=== PATIENT | male | born 1985 | race Caucasian/White ===

== ENCOUNTER → 2017-11-15 09:31 | Outpatient (CLI) | payer OTHER, SELFPAY ==
[2017-11-15 12:20] LABS: Anion Gap 5 (5-15); BUN 23 mg/dL (7-18); BUN/Creat Ratio 15.3 RATIO (10-20); Calcium,Total 9.3 mg/dL (8.5-10.1); Chloride 107 mmol/L (98-107); Cholesterol 212 mg/dL (200); EST Glomerular Filtration Rate 57 mL/min (>60); Est Glom Filt Rate - Afr Amer 69 mL/min (>60); Glucose 93 mg/dL (74-106); High Density Lipoprotein 44 mg/dL; Potassium 4.8 mmol/L (3.5-5.1); Sodium Level 142 mmol/L (136-145); Triglycerides 100 mg/dL; Very Low Density Lipoprotein 20 mg/dL (5-40)
[2017-11-15 12:26] LABS: Vitamin D,25 Hydroxy 47.2 ng/mL (29.95-100.01)
== END ==
PROVIDERS: Family Provider Family Medicine; PCP Family Medicine; Visit Provider Family Medicine
DX: Z00.00 Encounter for general adult medical examination without abnormal findings (principal)
CPT/HCPCS: 36415; 80048; 80061; 82306

== ENCOUNTER → 2018-07-18 15:54 | Outpatient (CLI) | payer OTHER, SELFPAY ==
[2018-07-18 18:06] LABS: Anion Gap 9 (5-15); BUN 19 mg/dL (7-18); BUN/Creat Ratio 11.8 RATIO (10-20); Calcium,Total 9.7 mg/dL (8.5-10.1); Chloride 105 mmol/L (98-107); Cholesterol 306 mg/dL (200); Creatinine, Serum 1.61 mg/dL (0.70-1.30); EST Glomerular Filtration Rate 52 mL/min (>60); Est Glom Filt Rate - Afr Amer 63 mL/min (>60); Glucose 78 mg/dL (74-106); High Density Lipoprotein 49 mg/dL; Potassium 3.8 mmol/L (3.5-5.1); Sodium Level 142 mmol/L (136-145); Triglycerides 287 mg/dL; Very Low Density Lipoprotein 57 mg/dL (5-40)
== END ==
PROVIDERS: Family Provider Family Medicine; PCP Family Medicine; Referring Provider Family Medicine; Visit Provider Family Medicine
DX: I10 Essential (primary) hypertension (principal)
CPT/HCPCS: 36415; 80048; 80061

== ENCOUNTER 2020-06-03 19:57 | Inpatient (IN) | payer OTHER, SELFPAY ==
[2020-06-03] VITALS (11 sets, daily range): BP systolic 175–204; BP diastolic 101–142; PULSE 83–99; RESP 15–25; TEMP 37.2–37.3; O2SAT 90–99; BMI 31.8
--- NOTE | 2020-06-03 20:05 | PCM.HP.STD ---
Problem List (1) KAYLA (acute kidney injury) Status: Acute (2) CKD (chronic kidney disease) stage 3, GFR 30-59 ml/min Status: Chronic (3) Intractable abdominal pain Status: Acute History of Present Illness Date of Admission: 06/03/20 Chief Complaint: abdominal pain The patient is a 34 year old M with a significant history of hypertension who presented to outside hospital ED with excruciating progressively worsening epigastric pain that started after a bowel movement. His symptoms started on the same day of presentation. His epigastric pain radiates to his lower abdomen and to his back. The pain aggravates with movement. The pain improved with morphine and Dilaudid given at outside hospital ED. He described the pain as sharp. He denies nausea and vomiting except with placement of NG tube. He denies fever but reports some mild chills. At outside hospital ED patient was found to have severely elevated blood pressures. Reportedly his blood pressure was 202/154. He received nitroglycerin paste and hydralazine. EKG showed T wave inversions in leads V5, V6 and aVL. Troponin was negative. White count was mildly elevated at 12.03. CT of abdomen and pelvis without contrast showed thickened small bowel loops within the left upper quadrant with associated dilatation to 3.8 cm and edema in the adjacent mesentery. It also showed cholelithiasis. The case was discussed with general surgery and hospitalist and patient was accepted to the hospitalist service because of elevated blood pressures and EKG findings. Past Medical History Past Medical History (Chronic Problems): Chronic Problems CKD (chronic kidney disease) stage 3, GFR 30-59 ml/min (Chronic) Surgical History: no surgical history Smoking Status: Never smoker - *Family History Maternal History Items: Diabetes, Hypertension Paternal History Items: Hypertension Review of Systems Constitutional: Reports: Chills - mild. Denies: Fever, Weight Change HEENT: Denies: Head Aches, Sinus Congestion, Sinus Drainage Cardiovascular: Denies: Chest Pain, Palpitations Respiratory: Denies: Cough, Shortness of breath at rest, Sputum production Gastrointestinal: Reports: Abdominal Pain. Denies: Constipation, Diarrhea Genitourinary: Denies: Dysuria Musculoskeletal: Denies: Joint Pain, Joint Tenderness Skin: Denies: Rash, Wounds Neurological: Denies: Numbness, Tingling, Focal weakness Psychiatric: Denies: Anxiety, Depression, Homicidal Ideations, Suicidal Ideations Hematologic/ Lymphatic: Denies: Easy Bruising, Easy Bleeding VTE Information - Inpt Only VTE Present on Admission: No VTE Mechan Device Prophylaxis: None VTE Pharm Prophylaxis ordered?: Yes Patient Problems: Active and Suspected Problems KAYLA (acute kidney injury) (Acute) Intractable abdominal pain (Acute) - Physical Exam General: Alert, Oriented x3, Cooperative HEENT: Atraumatic, PERRLA, EOMI, Normocephalic Neck: Supple, No JVD, Negative Carotid Bruits Lungs: Clear to auscultation, Normal air movement, No rhonchi, No wheeze, No rales Cardiovascular: Regular rate, Regular Rhythm, Normal S1, Normal S2, No murmurs Abdomen: Bowel Sounds Present, Soft, Non Tender Extremities: No edema, Capillary Refill Less than 3 Seconds Skin: No rashes, No breakdown Musculoskeletal: No Tenderness to Palpation of Joints or Extremities Neurological: Cranial nerves II-XII grossly intact Psych/Mental Status: Normal Affect, Appropriate Assessment/Plan All Active Problems KAYLA (acute kidney injury) (Acute) Intractable abdominal pain (Acute) The patient is a 34 year old M with a significant history of hypertension who presented to outside hospital ED with excruciating progressively worsening epigastric pain that started after a bowel movement; and with elevated blood pressure; elevated creatinine; abnormal EKG; and CT of abdomen and pelvis findings of small bowel thickening with dilatation and edema in adjacent mesentery. Intractable abdominal pain with inflammatory changes and cholelithiasis Conservative management with LR infusion; npo; IV Dilaudid as needed for pain; and IV Zofran as needed for nausea/vomiting. General Surgery recommended NG tube to be placed at outside hospital . NGT to low suction. General surgery consult Repeat CBC. Trend CMP. Check ESR and fecal lactoferrin/WBC Hypertensive urgency Reportedly patient was on blood pressure medication but lost weight and stop using blood pressure medication. Hydralazine as needed ordered Trend blood pressure and adjust blood pressure medications. Abnormal EKG likely secondary to hypertension Repeat EKG. KAYLA on CKD stage III Creatinine outside hospital was 2.34 Review of records shows that in 2018 patient creatinine was 1.50 and in 2019 patient creatinine was 1.61. BUN 22. BUN over creatinine at less than 20. CKD secondary to hypertensive nephropathy. DVT prophylaxis SCD ordered. Inpatient E&M: 63496 Init Hosp L3
--- NOTE | 2020-06-03 20:44 | EKG12_ITS ---
Test Reason : RHYTHM CHANGE Blood Pressure : / mmHG Vent. Rate : 112 BPM Atrial Rate : 112 BPM P-R Int : 166 ms QRS Dur : 102 ms QT Int : 362 ms P-R-T Axes : 056 063 247 degrees QTc Int : [address] & T wave abnormality, consider inferior ischemia Abnormal ECG No previous ECGs available Confirmed by CEM LEIGH, REBECCA ([id number]), editor house organ RISHABH ENCISO ([id number]) on 06/07/2020 11:45:29 AM Referred By: Dilia Olivares Confirmed By:REBECCA PRIEST MD
[2020-06-03 21:05] LABS: Erythrocyte Sedimentation Rate 10 mm/hr (0-20)
[2020-06-03 21:07] LABS: Absolute Lymphocyte Count 0.78 X10^3/uL (0.83-4.51); Absolute Neutrophil Count 10.4 X10^3/uL (2.0-7.7); Basophil# 0.04 X10^3/uL; Basophil% 0.3 % (0-1); Eosinophil# 0.03 X10^3/uL; Eosinophils% 0.2 % (0-5); Hematocrit 40.1 % (40-54); Hemoglobin 13.7 g/dL (13.0-16.5); Lymphocyte # 0.78 X10^3/ul (4.0); Lymphocyte % 6.4 % (19-41); Mean Corp Hgb Conc 34.2 g/dL (32-36); Mean Corpuscular Hgb 28.7 pg (27.0-32.0); Mean Corpuscular Volume 84.1 fL (80-94); Mean Platelet Vol. 11.3 fl (6.2-12.0); Monocyte# 0.95 X10^3/uL; Monocyte% 7.8 % (0-10); NRBC Flagged by Analyzer 0 % (0-5); Neutrophil # 10.36 X10^3/uL (2.7-7.7); Neutrophil % 84.7 % (47-70); Platelet Count 225 K/mm3 (150-450); RBC Distribution Width CV 13.3 % (11.6-14.6); RBC Distribution Width SD 40.9 fl (35.1-43.9); Red Blood Count 4.77 M/mm3 (4.6-6.2); White Blood Count 12.2 K/mm3 (4.4-11.0)
[2020-06-03] MEDS: HYDROmorphone 0.5 MG/0.5 ML SYRINGE IV (21:32)
[2020-06-03] MEDS: Lactated Ringers 1,000 ML 100 ML IV (21:32)
[2020-06-03] MEDS: hydrALAZINE 20 MG/ML Vial 10 MG IV (21:32)
[2020-06-03] MEDS: 0.9% Saline Lock 10 ML Syringe IV (21:37)
--- NOTE | 2020-06-03 22:31 | EKG12_ITS ---
Test Reason : Blood Pressure : / mmHG Vent. Rate : 102 BPM Atrial Rate : 102 BPM P-R Int : 180 ms QRS Dur : 100 ms QT Int : 372 ms P-R-T Axes : 052 063 208 degrees QTc Int : [address] & T wave abnormality, consider inferolateral ischemia Abnormal ECG No previous ECGs available Confirmed by CEM LEIGH, REBECCA ([id number]), film and video editor RISHABH ENCISO ([id number]) on 06/07/2020 11:48:49 AM Referred By: Dilia Olivares Confirmed By:REBECCA PRIEST MD
[2020-06-03] MEDS: Ondansetron 4 MG/2 ML Vial IV (22:55)
[2020-06-03] MEDS: Labetalol (Prefilled) 20 MG/4 ML 10 MG IV (23:41)
[2020-06-04] VITALS (44 sets, daily range): BP systolic 131–194; BP diastolic 87–150; PULSE 71–127; RESP 12–30; TEMP 36.5–37.4; O2SAT 92–100
[2020-06-04] MEDS: HYDROmorphone 0.5 MG/0.5 ML SYRINGE IV ×3 (00:23→07:56)
[2020-06-04] MEDS: 0.9% Saline Lock 10 ML Syringe IV ×4 (00:24→20:53)
[2020-06-04] MEDS: hydrALAZINE 20 MG/ML Vial 10 MG IV (05:34)
[2020-06-04] MEDS: Lactated Ringers 1,000 ML 100 ML IV ×2 (05:37→18:05)
[2020-06-04 05:39] LABS: Absolute Lymphocyte Count 1.16 X10^3/uL (0.83-4.51); Absolute Neutrophil Count 10.9 X10^3/uL (2.0-7.7); Basophil# 0.03 X10^3/uL; Basophil% 0.2 % (0-1); Eosinophil# 0.02 X10^3/uL; Eosinophils% 0.1 % (0-5); Hematocrit 40.9 % (40-54); Hemoglobin 13.7 g/dL (13.0-16.5); Lymphocyte # 1.16 X10^3/ul (4.0); Lymphocyte % 8.5 % (19-41); Mean Corp Hgb Conc 33.5 g/dL (32-36); Mean Corpuscular Hgb 28.7 pg (27.0-32.0); Mean Corpuscular Volume 85.6 fL (80-94); Mean Platelet Vol. 11.3 fl (6.2-12.0); Monocyte# 1.46 X10^3/uL; Monocyte% 10.7 % (0-10); NRBC Flagged by Analyzer 0 % (0-5); Neutrophil # 10.87 X10^3/uL (2.7-7.7); Neutrophil % 80.1 % (47-70); Platelet Count 222 K/mm3 (150-450); RBC Distribution Width CV 13.6 % (11.6-14.6); RBC Distribution Width SD 42.5 fl (35.1-43.9); Red Blood Count 4.78 M/mm3 (4.6-6.2); White Blood Count 13.6 K/mm3 (4.4-11.0)
[2020-06-04 06:04] LABS: AST(SGOT) 17 U/L (15-37); Alanine Aminotransfer ALT/SGPT 22 U/L (16-61); Albumin, Serum 3.1 g/dL (3.2-5.0); Alkaline Phosphatase 82 U/L (45-117); Anion Gap 5 (5-15); BUN 24 mg/dL (7-18); BUN/Creat Ratio 10.7 RATIO (10-20); Calcium,Total 8.9 mg/dL (8.5-10.1); Chloride 106 mmol/L (98-107); Creatinine, Serum 2.25 mg/dL (0.70-1.30); EST Glomerular Filtration Rate 35 mL/min (>60); Est Glom Filt Rate - Afr Amer 43 mL/min (>60); Estimated Creatinine Clearance 54.25 ml/min; Glucose 116 mg/dL (74-106); Potassium 4.1 mmol/L (3.5-5.1); Protein, Total 6.1 g/dL (6.4-8.2); Sodium Level 141 mmol/L (136-145)
--- NOTE | 2020-06-04 06:20 | RAD_ITS ---
EXAM: XR ABDOMEN, 1 VIEW CLINICAL INDICATION: partial small bowel obstruction. TECHNIQUE: Frontal supine view of the abdomen/pelvis. This report was created using [employer] report generation technology. COMPARISON: None. FINDINGS: LOWER THORAX: No acute pathology. GASTROINTESTINAL TRACT: Mild gaseous dilation of small bowel in the central abdomen measuring up to 4.2 cm. Colonic gas confirmed. ORGANS: Unremarkable as visualized. No organomegaly. No abnormal calcifications. BONES/JOINTS: No acute pathology. SOFT TISSUES: No acute pathology. RAD/Abdomen Single View (Portable) IMPRESSION: Partial small bowel obstruction or ileus. Electronically Signed: Eloy Almanza MD (Brooks) at 14:38 EST , Service support ,
--- NOTE | 2020-06-04 07:30 | CON.PCM_ITS ---
Reason for Consult Date of Consultation: 06/04/20 History of Present Illness: The patient is a 34 year old M presented initially to the ER in [place] after sure bowel movement at 9 AM and increasing abdominal pain in the mid/upper abdomen. Patient was admitted to ICU due to uncontrolled blood pressure. Pt s cleopatra he is possibly on low-dose blood pressure med and has not been on anything for the last year. Patient states that the previous last week he had some dull pain at this area was still able to eat and drink normally. Patient denies any nausea or vomiting until he put the NG in in the ER. Patient states he last had any food 8 AM yesterday and last had a bowel movement at 9:30 AM yesterday as well. Patient denies any diarrhea patient states he has had some flatus and also burping while he is been here. Patient really denies much pain currently however on exam patient did start having emesis. He also had an emesis yesterday. NG has not put out too much. CT abdomen pelvis was initially called some thickening of small bowel loops in left upper quadrant associate with dilation of 3.8 cm and edema at adjacent mesentery consider infectious enteritis or inflammatory bowel disease. Partial early small bowel obstruction is less likely given that there is no transition point present. Discussed imaging with Dr. Olivier and he thought gastroenteritis as well. Past Medical History Past Medical History (Chronic Problems): Chronic Problems Hypertension (Chronic) CKD (chronic kidney disease) stage 3, GFR 30-59 ml/min (Chronic) Allergies No Known Allergies Allergy (Verified 06/03/20 21:21) Surgical History: no surgical history Smoking Status: Never smoker - *Family History Maternal History Items: Diabetes, Hypertension Paternal History Items: Hypertension Review of Systems Constitutional: Reports: Anorexia. Denies: Fever Eyes: Denies: Cataracts HEENT: Denies: Difficulty Swallowing Cardiovascular: Denies: Chest Pain Respiratory: Denies: Cough Gastrointestinal: Reports: Abdominal Pain, Nausea, Vomiting. Denies: Diarrhea, Hematemesis, Hematochezia Genitourinary: Denies: Dysuria Neurological: Denies: Blurred vision Psychiatric: Denies: Anxiety Hematologic/ Lymphatic: Denies: Easy Bleeding - Physical Exam Vitals/I&O's: Vital Signs Temp Pulse Resp BP Pulse Ox 99.1 F 103 H 23 H 172/100 H 98 06/04/20 04:00 06/04/20 06:00 06/04/20 06:00 06/04/20 06:00 06/04/20 07:23 Oxygen Flow Rate (L/min) 2 Oxygen Delivery Method Room Air Weight: 255 lb 1.197 oz Body Mass Index (BMI) 31.8 Intake and Output for Last 24 Hours 06/02/20 06/03/20 06/04/20 23:59 23:59 23:59 Intake Total 918.33 / 918.33 Output Total 1100 / 1100 Balance -181.67 / -181.67 General: Alert, Oriented x3, Cooperative HEENT: - - NG in place some dried blood at nares Lungs: Normal air movement Cardiovascular: Tachycardic Abdomen: Soft, Non-Distended, Tender - Left mid abdomen, no peritoneal signs Extremities: No clubbing, No cyanosis, No edema Laboratory Results 06/03/20 20:55: ESR 10 06/03/20 20:55: WBC 12.2 H, RBC 4.77, Hgb 13.7, Hct 40.1, MCV 84.1, MCH 28.7, MCHC 34.2, RDW Std Deviation 40.9, RDW Coeff of Marisol 13.3, Plt Count 225, MPV 11.3, Immature Gran % (Auto) 0.600, Neut % (Auto) 84.7 H, Lymph % (Auto) 6.4 L, [place] % (Auto) 7.8, Eos % (Auto) 0.2, Baso % (Auto) 0.3, Absolute Neuts (auto) 10.4 H, Absolute Lymphs (auto) 0.78 L, Nucleated RBC % 0 06/04/20 05:30: WBC 13.6 H, RBC 4.78, Hgb 13.7, Hct 40.9, MCV 85.6, MCH 28.7, MCHC 33.5, RDW Std Deviation 42.5, RDW Coeff of Marisol 13.6, Plt Count 222, MPV 11.3, Immature Gran % (Auto) 0.400, Neut % (Auto) 80.1 H, Lymph % (Auto) 8.5 L, [place] % (Auto) 10.7 H, Eos % (Auto) 0.1, Baso % (Auto) 0.2, Absolute Neuts (auto) 10.9 H, Absolute Lymphs (auto) 1.16, Nucleated RBC % 0 06/04/20 05:30: Sodium 141, Potassium 4.1, Chloride 106, Carbon Dioxide 30.0, Anion Gap 5, BUN 24 H, Creatinine 2.25 H, Estim Creat Clear Calc 54.25, Est GFR (MDRD) Af Amer 43 L, Est GFR (MDRD) Non-Af 35 L, BUN/Creatinine Ratio 10.7, Glucose 116 H, Calcium 8.9, Total Bilirubin 0.50, AST 17, ALT 22, Alkaline Phosphatase 82, Total Protein 6.1 L, Albumin 3.1 L, Globulin 3.0, Albumin/Globulin Ratio 1.0 Current Medications Hydralazine HCl (Hydralazine 20 Mg/Ml Vial) 10 mg IV Q4H PRN PRN PRN Reason: SBP > 160 OR DBP > 120 Last Admin: 06/04/20 05:34 Dose: 10 mg Documented by: Hydromorphone HCl (Hydromorphone 0.5 Mg/0.5 Ml Syringe) 0.5 mg IV Q2H PRN PRN PRN Reason: Pain Score 6-10 Last Admin: 06/04/20 02:56 Dose: 0.5 mg Documented by: Lactated Ringer's () 1,000 mls @ 100 mls/hr IV .Q10H RAULITO Last Admin: 06/04/20 05:37 Dose: 100 mls/hr Documented by: Sodium Chloride () 250 mls @ 15 mls/hr IV .[id number] PRN PRN Reason: Saline Flush Sodium Chloride () 250 mls @ 15 mls/hr IV .[id number] PRN PRN Reason: Additional IVPB Infusion Pantoprazole Sodium 40 mg/ (Sodium Chloride) 110 mls @ 330 mls/hr IV Q12 RAULITO Last Infusion: 06/04/20 00:01 Dose: Infused Documented by: Influenza Virus Vaccine Quadrival (Influenza Vaccine (6mos+)/Pf 0.5 Ml Syringe) 0.5 ml IM .ONCE ONE Stop: 06/04/20 10:01 Labetalol HCl (Labetalol (Prefilled) 20 Mg/4 Ml) 10 mg IV Q4H PRN PRN PRN Reason: sbp > 160 or dbp > 120 Last Admin: 06/03/20 23:41 Dose: 10 mg Documented by: Ondansetron HCl (Ondansetron 4 Mg/2 Ml Vial) 4 mg IV Q8H PRN PRN PRN Reason: NAUSEA/VOMITING Last Admin: 06/03/20 22:55 Dose: 4 mg Documented by: Sodium Chloride (0.9% Saline Lock 10 Ml Syringe) 10 - 40 ml IV UD PRN PRN Reason: SALINE FLUSH Last Admin: 06/04/20 00:24 Dose: 10 ml Documented by: Assessment/Plan All Active Problems Abnormal EKG (Acute) Acute enteritis (Acute) Hypertensive urgency (Acute) Acute kidney injury superimposed on CKD (Acute) 34-year-old male with abdominal pain, small section of dilated small bowel question could be infectious/inflammatory, leukocytosis, uncontrolled 1. Keep n.p.o./IV fluids/NG. Will plan contrast study once patient's nausea/emesis has improved a little from this morning. His NG has not put out too much however unsure how well has been working did change suction and tubing this morning. 2. will start antibiotics due to leukocytosis increased from 12-13 with a left shift Cipro/Flagyl. 3. Continue pain control 4. Hypertension?medication per hospitalist Sara Veronica M.D. Pager: [phone] [facility] [address] [place] [address], Outpatient [place], [address] [place] [address] Office: [phone] Inpatient E&M: 90250 Init Hosp L3
[2020-06-04] MEDS: Ondansetron 4 MG/2 ML Vial IV (07:47)
[2020-06-04] MEDS: Labetalol (Prefilled) 20 MG/4 ML 10 MG IV (07:49)
[2020-06-04] MEDS: Ciprofloxacin 400 MG/200 ML BAG 200 MG IV ×2 (09:27→20:44)
[2020-06-04] MEDS: metroNIDAZOLE 500 MG/100 ML BAG 100 MG IV ×3 (09:28→21:58)
--- NOTE | 2020-06-04 09:32 | ECHOCS_ITS ---
Procedure This was a 2D Doppler, Color Flow transthoracic echocardiogram. The study was technically difficult. Due to body habitus and exam performed supine. Contrast injection was performed. Exam performed portable in ICU/CCU. Left Ventricle Moderate concentric left ventricular hypertrophy. The estimated ejection fraction is 65-70 %. Right Ventricle Normal RV size. Normal systolic function. Atria The left atrium is mildly enlarged. Normal right atrium. Normal atrial septum. Mitral Valve The mitral valve is structurally normal. No prolapse or stenosis seen. Trivial mitral valve insufficiency. Tricuspid Valve Normal tricuspid valve. Unable to estimate RV systolic pressure due to inadequate jet, pulmonary artery pressure probably normal. Aortic Valve Normal aortic valve. No aortic valve insufficiency. Great Vessels Normal aortic root. Inferior vena cava collapse with respiration. Pericardium/Pleural No pericardial effusion. Medication Diluted definity 3.0ml given slow IV push to enhance endocardial definition. MMode/2D Measurements & Calculations LVIDd: 4.9 cm IVSd: 1.7 cm Ao root diam: 3.1 cm LVIDs: 3.0 cm LVPWd: 1.6 cm RVDd: 3.0 cm FS: 38.8 % LAV(MOD-bp): 92.9 ml LVAd ap4: 48.9 cm2 SV(MOD-sp4): 130.0 ml LAV(MOD-bp) Indexed: 38.2 ml/m2 EDV(MOD-sp4): 176.0 ml LAV(MOD-sp2): 89.4 ml EDV(sp4-el): 184.1 ml LAV(MOD-sp4): 89.4 ml LVAs ap4: 21.4 cm2 ESV(MOD-sp4): 46.0 ml ESV(sp4-el): 47.2 ml EF(MOD-sp4): 73.9 % EF(sp4-el): 74.4 % SV(sp4-el): 136.9 ml LA A4 area: 26.3 cm2 LA dimension(2D): 4.5 cm Doppler Measurements & Calculations MV E max juli: 100.9 cm/sec Ao V2 max: 174.5 cm/sec LV V1 max: 132.6 cm/sec MV A max juli: 122.9 cm/sec Ao max P.2 mmHg LV V1 max P.0 mmHg MV E/A: 0.82 Ao V2 mean: 115.4 cm/sec Ao mean P.8 mmHg Ao V2 VTI: 23.2 cm PA V2 max: 135.0 cm/sec Interpretation Summary The estimated ejection fraction is 65-70 %. No pericardial effusion. Moderate concentric left ventricular hypertrophy. Trivial mitral valve insufficiency. Ordering Physician: Andrea Montero Referring Physician: Dilia Olivares Performed By: Mireya Chappell RDCS, RVT
--- NOTE | 2020-06-04 09:33 | PN_ITS ---
Subjective: Chief complaint: Follow-up after admission for abdominal pain, acute enteritis, KAYLA on CKD, hypertensive urgency and abnormal EKG. Patient seen and examined. This morning, patient still complained of abdominal pain, associated with vomiting, minimal improvement. He is on NG tube suction. He complained of headache. Denied chest pain, shortness of breath, palpitation or dizziness. He is afebrile, heart rate has been around 100, blood pressure is elevated, pulse ox is 99% on room air. - Physical Exam Vitals/I&O's: Vital Signs Temp Pulse Resp BP Pulse Ox 97.7 F L 97 14 181/109 H 99 06/04/20 08:00 06/04/20 08:00 06/04/20 08:00 06/04/20 08:00 06/04/20 08:00 Oxygen Flow Rate (L/min) 2 Oxygen Delivery Method Room Air Weight: 255 lb 1.197 oz Body Mass Index (BMI) 31.8 Intake and Output for Last 24 Hours 06/02/20 06/03/20 06/04/20 23:59 23:59 23:59 Intake Total 918.33 / 918.33 Output Total 1150 / 1150 Balance -231.67 / -231.67 General: Alert, Oriented x3, Cooperative, - - He is in moderate pain. HEENT: Atraumatic, PERRLA, EOMI, Normocephalic Oral: Moist Mucosa, No Gingival or Mucosal Lesions/ Ulcerations Neck: Supple, No JVD, Negative Carotid Bruits, Trachea Midline, Thyroid Normal Size and Texture Lungs: Clear to auscultation, Normal air movement, No rhonchi, No wheeze, No rales, Diminished Cardiovascular: Regular rate, Regular Rhythm, Normal S1, Normal S2, PMI Normal, Tachycardic Abdomen: Soft, Non-Distended, No Hepato-splenomegaly, Hypoactive Bowel Sounds, Obese, Tender Extremities: No clubbing, No cyanosis, No edema Skin: No rashes, No breakdown Lymphatic: No Cervical, Supraclavicular, or Inguinal Adenopathy Neurological: Cranial nerves II-XII grossly intact, Motor Exam 5/5 strength throughout Psych/Mental Status: Normal Affect, Appropriate, Alert and oriented to time, place, person, mood and affect Laboratory Results 06/03/20 20:55: ESR 10 06/03/20 20:55: WBC 12.2 H, RBC 4.77, Hgb 13.7, Hct 40.1, MCV 84.1, MCH 28.7, MCHC 34.2, RDW Std Deviation 40.9, RDW Coeff of Marisol 13.3, Plt Count 225, MPV 11.3, Immature Gran % (Auto) 0.600, Neut % (Auto) 84.7 H, Lymph % (Auto) 6.4 L, [place] % (Auto) 7.8, Eos % (Auto) 0.2, Baso % (Auto) 0.3, Absolute Neuts (auto) 10.4 H, Absolute Lymphs (auto) 0.78 L, Nucleated RBC % 0 06/04/20 05:30: WBC 13.6 H, RBC 4.78, Hgb 13.7, Hct 40.9, MCV 85.6, MCH 28.7, MCHC 33.5, RDW Std Deviation 42.5, RDW Coeff of Marisol 13.6, Plt Count 222, MPV 11.3, Immature Gran % (Auto) 0.400, Neut % (Auto) 80.1 H, Lymph % (Auto) 8.5 L, [place] % (Auto) 10.7 H, Eos % (Auto) 0.1, Baso % (Auto) 0.2, Absolute Neuts (auto) 10.9 H, Absolute Lymphs (auto) 1.16, Nucleated RBC % 0 06/04/20 05:30: Sodium 141, Potassium 4.1, Chloride 106, Carbon Dioxide 30.0, Anion Gap 5, BUN 24 H, Creatinine 2.25 H, Estim Creat Clear Calc 54.25, Est GFR (MDRD) Af Amer 43 L, Est GFR (MDRD) Non-Af 35 L, BUN/Creatinine Ratio 10.7, Glucose 116 H, Calcium 8.9, Total Bilirubin 0.50, AST 17, ALT 22, Alkaline Phosphatase 82, Total Protein 6.1 L, Albumin 3.1 L, Globulin 3.0, Albumin/Globulin Ratio 1.0 Current Medications Hydromorphone HCl (Hydromorphone 0.5 Mg/0.5 Ml Syringe) 0.5 mg IV Q2H PRN PRN PRN Reason: Pain Score 6-10 Last Admin: 06/04/20 07:56 Dose: 0.5 mg Documented by: Lactated Ringer's () 1,000 mls @ 100 mls/hr IV .Q10H RAULITO Last Admin: 06/04/20 05:37 Dose: 100 mls/hr Documented by: Sodium Chloride () 250 mls @ 15 mls/hr IV .[id number] PRN PRN Reason: Saline Flush Sodium Chloride () 250 mls @ 15 mls/hr IV .[id number] PRN PRN Reason: Additional IVPB Infusion Pantoprazole Sodium 40 mg/ (Sodium Chloride) 110 mls @ 330 mls/hr IV Q12 [facility] Last Admin: 06/04/20 08:47 Dose: 330 mls/hr Documented by: Ciprofloxacin (Cipro) 400 mg in 200 mls @ 200 mls/hr IV Q12 [facility] Last Admin: 06/04/20 09:27 Dose: 200 mls/hr Documented by: Metronidazole (Flagyl) 500 mg in 100 mls @ 100 mls/hr IV Q8 [facility] Last Admin: 06/04/20 09:28 Dose: 100 mls/hr Documented by: Influenza Virus Vaccine Quadrival (Influenza Vaccine (6mos+)/Pf 0.5 Ml Syringe) 0.5 ml IM .ONCE ONE Stop: 06/04/20 10:01 Ondansetron HCl (Ondansetron 4 Mg/2 Ml Vial) 4 mg IV Q8H PRN PRN PRN Reason: NAUSEA/VOMITING Last Admin: 06/04/20 07:47 Dose: 4 mg Documented by: Sodium Chloride (0.9% Saline Lock 10 Ml Syringe) 10 - 40 ml IV UD PRN PRN Reason: SALINE FLUSH Last Admin: 06/04/20 07:47 Dose: 20 ml Documented by: Medical Necessity - Tobacco Use Smoking Status: Never smoker Assessment/Plan All Active Problems Abnormal EKG (Acute) Acute enteritis (Acute) Hypertensive urgency (Acute) Acute kidney injury superimposed on CKD (Acute) This is a 34 years old male patient directly admitted from outside facility for abdominal pain, found to have findings consistent with acute enteritis, found to have hypertensive emergency and abnormal EKG. #1 abdominal pain/acute enteritis: He is on n.p.o., IV fluids and IV Dilaudid for pain. Started on IV ciprofloxacin and Flagyl for possible acute enteritis, probably infectious. CT scan abdomen and pelvis that was done at the other facility revealed thickening of the small bowel loops within the left upper quadrant associated with dilatation and edema, small bowel obstruction less likely and also revealed cholelithiasis. LFT at the other facility was unremarkable as well as lipase. Currently, patient is on NG tube suction. General surgery on the case. Plan: Continue same treatment, repeat CBC, CMP and lipase tomorrow morning. #2 hypertensive urgency: Blood pressure still elevated in spite of being on IV labetalol and IV Thorazine as needed. Plan: Start IV nicardipine drip. #3 acute kidney injury on top of stage III chronic kidney disease: Secondary to dehydration and poor oral intake. Baseline creatinine has been around 1.5 to 1.6 mg/dL, today's creatinine is 2.25. Patient is on IV fluids, plan to repeat BMP tomorrow morning. #4 abnormal EKG: EKG reviewed, revealed normal sinus rhythm, ST segment depression in leads I, T wave inversion in leads II, V5 and V6. Patient denied any chest pain. Plan: Serial cardiac enzymes, 2D echocardiogram, repeat EKG tomorrow morning. #5 hypertension: Patient had a history of hypertension and he was on ant ihypertensive medications couple of years ago, stopped taking his medication because he lost some weight and he thinks that his blood pressure got better. Currently, blood pressure is elevated, started on IV nicardipine drip. Patient will need to be started on antihypertensives when he can take p.o. #6 DVT prophylaxis: SCDs. This note was generated with [employer] dictation software. It may contain incorrect words, spelling, and punctuation that were not noted in checking the note before signing. Inpatient E&M: [id number] [facility] Hosp L3
--- NOTE | 2020-06-04 13:06 | CM.UR ---
RN CM Assessment Introduced role of RN CM to patient.? Patient is alert, oriented and able?to participate in RN CM Assessment. ?Patient maintained a flat affect with minimal eye contact during assessment. Care providers, pharmacy, and demographics verified. Presentation: Epigastric pain Admit Dx: Partial sbo, hypertensive emergency Re-Admit: no Barriers/Issues: none clearly evident. Motivation? PCP: Dr. Ross Specialists: Denies Preferred Pharmacy: [facility] in [place] Insurance: MMO Rx Benefit:? Yes, denies problems paying for medication. ?LNOK: , Mitzi LW/HPOA: none on file. declined additional information at this time. Living Arrangements:? Lives in 1 story home with and 1 year old. currently with 2nd child. ADL?s: Independent Transportation: Self DME: None HHC: None SNF: None Goal: Home. 's family are supportive and able to assist, if needed. DC PLAN: Home. Discussed flat affect with charge nurse BENSON Wallace. Will continue to monitor. Patient's bp has continued to remain elevated. Alerted patient that case management will remain available should any needs arise. Verb understanding. Daphne Mazariegos RN, CCM.
[2020-06-05] VITALS (63 sets, daily range): BP systolic 123–210; BP diastolic 78–130; PULSE 71–91; RESP 14–28; TEMP 36.4–36.8; O2SAT 90–100
[2020-06-05] MEDS: Lactated Ringers 1,000 ML 100 ML IV (04:05)
[2020-06-05 05:50] LABS: Absolute Lymphocyte Count 1.23 X10^3/uL (0.83-4.51); Absolute Neutrophil Count 6.9 X10^3/uL (2.0-7.7); Basophil# 0.02 X10^3/uL; Basophil% 0.2 % (0-1); Eosinophil# 0.11 X10^3/uL; Eosinophils% 1.2 % (0-5); Hematocrit 36.5 % (40-54); Hemoglobin 11.9 g/dL (13.0-16.5); Lymphocyte # 1.23 X10^3/ul (4.0); Lymphocyte % 13.1 % (19-41); Mean Corp Hgb Conc 32.6 g/dL (32-36); Mean Corpuscular Hgb 28.4 pg (27.0-32.0); Mean Corpuscular Volume 87.1 fL (80-94); Mean Platelet Vol. 11.4 fl (6.2-12.0); Monocyte# 1.11 X10^3/uL; Monocyte% 11.8 % (0-10); NRBC Flagged by Analyzer 0 % (0-5); Neutrophil # 6.88 X10^3/uL (2.7-7.7); Neutrophil % 73.2 % (47-70); Platelet Count 189 K/mm3 (150-450); RBC Distribution Width CV 13.8 % (11.6-14.6); RBC Distribution Width SD 43.4 fl (35.1-43.9); Red Blood Count 4.19 M/mm3 (4.6-6.2); White Blood Count 9.4 K/mm3 (4.4-11.0)
--- NOTE | 2020-06-05 05:55 | EKG12_ITS ---
Test Reason : MORNING EKG Blood Pressure : / mmHG Vent. Rate : 084 BPM Atrial Rate : 084 BPM P-R Int : 176 ms QRS Dur : 110 ms QT Int : 418 ms P-R-T Axes : 025 060 237 degrees QTc Int : 493 ms Normal sinus rhythm ST & T wave abnormality, consider inferolateral ischemia Prolonged QT Abnormal ECG When compared with ECG of 03-JUN-2020 22:31, MANUAL COMPARISON REQUIRED, DATA IS UNCONFIRMED Confirmed by CEM LEIGH, REBECCA ([id number]), story editor RISHABH ENCISO ([id number]) on 06/07/2020 11:43:48 AM Referred By: Dilia Olivares Confirmed By:REBECCA PRIEST MD
[2020-06-05] MEDS: metroNIDAZOLE 500 MG/100 ML BAG 100 MG IV (06:03)
[2020-06-05 06:15] LABS: ALB/GLOB Ratio 0.9 RATIO (0.9-2.4); AST(SGOT) 35 U/L (15-37); Alanine Aminotransfer ALT/SGPT 23 U/L (16-61); Albumin, Serum 2.6 g/dL (3.2-5.0); Alkaline Phosphatase 71 U/L (45-117); Anion Gap 5 (5-15); BUN 22 mg/dL (7-18); BUN/Creat Ratio 9.5 RATIO (10-20); Calcium,Total 8.6 mg/dL (8.5-10.1); Chloride 111 mmol/L (98-107); Creatinine, Serum 2.32 mg/dL (0.70-1.30); EST Glomerular Filtration Rate 34 mL/min (>60); Est Glom Filt Rate - Afr Amer 41 mL/min (>60); Estimated Creatinine Clearance 52.61 ml/min; Glucose 103 mg/dL (74-106); Lipase 104 U/L (73-393); Potassium 4.5 mmol/L (3.5-5.1); Protein, Total 5.6 g/dL (6.4-8.2); Sodium Level 144 mmol/L (136-145)
--- NOTE | 2020-06-05 08:27 | PCM.PN.SRG ---
Subjective: Patient denies any abdominal pain is having minimal output from NG, removed NG this morning. Patient admits that his anxiety is also part of his issue and also states he will making sure to stay on blood pressure meds and willing to take anxiety meds as well. - Physical Exam Vitals/I&O's: Vital Signs Temp Pulse Resp BP Pulse Ox 98.0 F 82 22 H 173/107 H 94 06/05/20 04:00 06/05/20 07:45 06/05/20 07:15 06/05/20 07:45 06/05/20 07:15 Oxygen Flow Rate (L/min) 2 Oxygen Delivery Method Room Air Weight: 260 lb 2.327 oz Body Mass Index (BMI) 31.8 Intake and Output for Last 24 Hours 06/03/20 06/04/20 06/05/20 23:59 23:59 23:59 Intake Total 4285.00 / 4315.00 1963.17 / 1963.17 Output Total 3250 / 3550 1500 / 1500 Balance 1035.00 / 765.00 463.17 / 463.17 General: Alert, Oriented x3, Cooperative, No apparent distress HEENT: Atraumatic Lungs: Normal air movement Cardiovascular: Regular rate Abdomen: Soft, Non Tender, Non-Distended Extremities: No clubbing, No cyanosis, No edema Laboratory Results 06/04/20 11:35: Troponin I 0.203 H 06/04/20 13:40: Troponin I 0.260 H 06/04/20 16:40: Troponin I 0.706 H* 06/05/20 05:46: WBC 9.4, RBC 4.19 L, Hgb 11.9 L, Hct 36.5 L, MCV 87.1, MCH 28.4, MCHC 32.6, RDW Std Deviation 43.4, RDW Coeff of Marisol 13.8, Plt Count 189, MPV 11.4, Immature Gran % (Auto) 0.500, Neut % (Auto) 73.2 H, Lymph % (Auto) 13.1 L, [place] % (Auto) 11.8 H, Eos % (Auto) 1.2, Baso % (Auto) 0.2, Absolute Neuts (auto) 6.9, Absolute Lymphs (auto) 1.23, Nucleated RBC % 0 06/05/20 05:46: Sodium 144, Potassium 4.5, Chloride 111 H, Carbon Dioxide 28.0, Anion Gap 5, BUN 22 H, Creatinine 2.32 H, Estim Creat Clear Calc 52.61, Est GFR (MDRD) Af Amer 41 L, Est GFR (MDRD) Non-Af 34 L, BUN/Creatinine Ratio 9.5 L, Glucose 103, Calcium 8.6, Total Bilirubin 0.70, AST 35, ALT 23, Alkaline Phosphatase 71, Total Protein 5.6 L, Albumin 2.6 L, Globulin 3.0, Albumin/Globulin Ratio 0.9, Lipase 104 Current Medications Hydromorphone HCl (Hydromorphone 0.5 Mg/0.5 Ml Syringe) 0.5 mg IV Q2H PRN PRN PRN Reason: Pain Score 6-10 Last Admin: 06/04/20 07:56 Dose: 0.5 mg Documented by: Lactated Ringer's () 1,000 mls @ 100 mls/hr IV .Q10H [facility] Last Admin: 06/05/20 04:05 Dose: 100 mls/hr Documented by: Sodium Chloride () 250 mls @ 15 mls/hr IV .[id number] PRN PRN Reason: Saline Flush Sodium Chloride () 250 mls @ 15 mls/hr IV .[id number] PRN PRN Reason: Additional IVPB Infusion Pantoprazole Sodium 40 mg/ (Sodium Chloride) 110 mls @ 330 mls/hr IV Q12 [facility] Last Admin: 06/05/20 07:47 Dose: 330 mls/hr Documented by: Ciprofloxacin (Cipro) 400 mg in 200 mls @ 200 mls/hr IV Q12 [facility] Last Infusion: 06/04/20 21:44 Dose: Infused Documented by: Metronidazole (Flagyl) 500 mg in 100 mls @ 100 mls/hr IV Q8 [facility] Last Infusion: 06/05/20 07:03 Dose: Infused Documented by: Labetalol HCl 200 mg/ Sodium (Chloride) 250 mls @ 37.5 mls/hr CONT INF .Q6H40M [facility]; Protocol Last Titration: 06/05/20 07:45 Dose: 1.5 mg/min, 112.5 mls/hr Documented by: Ondansetron HCl (Ondansetron 4 Mg/2 Ml Vial) 4 mg IV Q8H PRN PRN PRN Reason: NAUSEA/VOMITING Last Admin: 06/04/20 07:47 Dose: 4 mg Documented by: Sodium Chloride (0.9% Saline Lock 10 Ml Syringe) 10 - 40 ml IV UD PRN PRN Reason: SALINE FLUSH Last Admin: 06/04/20 20:53 Dose: 20 ml Documented by: Medical Necessity - Tobacco Use Smoking Status: Never smoker Assessment/Plan All Active Problems Abnormal EKG (Acute) Acute enteritis (Acute) Hypertensive urgency (Acute) Acute kidney injury superimposed on CKD (Acute) 34-year-old male with abdominal pain, small section of dilated small bowel question could be infectious/inflammatory, leukocytosis, uncontrolled 1. DC NG start on clears. Will not do any contrast dye unless he is unable to tolerate clears. 2. We will keep on Cipro Flagyl for today and probably stop after today. 3. Continue pain control 4. Hypertension?medication per hospitalist Sara Veronica M.D. Pager: [phone] [facility] [address] [place] [address], Outpatient [place], [address] [place] [address] Office: [phone] Inpatient E&M: 95276 Subs Hosp L2
[2020-06-05] MEDS: Ciprofloxacin 400 MG/200 ML BAG 200 MG IV (09:15)
[2020-06-05] MEDS: Metoprolol Tartrate 25 MG Tablet PO ×2 (09:36→20:46)
[2020-06-05] MEDS: amLODIPine 10 MG Tablet PO (09:36)
[2020-06-05] MEDS: ALPRAZolam 0.5 MG Tablet PO ×2 (09:36→20:47)
--- NOTE | 2020-06-05 09:58 | PCM.PROGNOTE ---
Subjective: Chief complaint: Follow-up after admission for abdominal pain, acute enteritis, KAYLA on CKD, hypertensive emergency and acute non-STEMI. Patient seen and examined. No acute events overnight. This morning, he is feeling better. NG tube taken out. He denied any more abdominal pain, no nausea or vomiting. He has been passing flatus, no bowel movement. Denied chest pain or shortness of breath. He was taken off IV labetalol drip last night but blood pressure started to go up again. It is up to 190s this morning. He is back on IV labetalol drip. Other vital signs are stable. - Physical Exam Vitals/I&O's: Vital Signs Temp Pulse Resp BP Pulse Ox 98.0 F 87 22 H 173/107 H 94 06/05/20 04:00 06/05/20 09:36 06/05/20 07:15 06/05/20 07:45 06/05/20 07:15 Oxygen Flow Rate (L/min) 2 Oxygen Delivery Method Room Air Weight: 260 lb 2.327 oz Body Mass Index (BMI) 31.8 Intake and Output for Last 24 Hours 06/03/20 06/04/20 06/05/20 23:59 23:59 23:59 Intake Total 4285.00 / 4315.00 2240.04 / 2240.04 Output Total 3250 / 3550 1500 / 1500 Balance 1035.00 / 765.00 740.04 / 740.04 General: Alert, Oriented x3, Cooperative, No apparent distress HEENT: Atraumatic, PERRLA, EOMI, Normocephalic Oral: Moist Mucosa, No Gingival or Mucosal Lesions/ Ulcerations Neck: Supple, No JVD, Negative Carotid Bruits, Trachea Midline, Thyroid Normal Size and Texture Lungs: Clear to auscultation, No rhonchi, No wheeze, No rales, Diminished Cardiovascular: Regular rate, Regular Rhythm, Normal S1, Normal S2, PMI Normal Abdomen: Bowel Sounds Present, Soft, Non Tender, Non-Distended, No Hepato-splenomegaly Extremities: No clubbing, No cyanosis, No edema Skin: No rashes, No breakdown Lymphatic: No Cervical, Supraclavicular, or Inguinal Adenopathy Neurological: Cranial nerves II-XII grossly intact, Motor Exam 5/5 strength throughout Psych/Mental Status: Normal Affect, Appropriate, Alert and oriented to time, place, person, mood and affect Laboratory Results 06/04/20 11:35: Troponin I 0.203 H 06/04/20 13:40: Troponin I 0.260 H 06/04/20 16:40: Troponin I 0.706 H* 06/05/20 05:46: WBC 9.4, RBC 4.19 L, Hgb 11.9 L, Hct 36.5 L, MCV 87.1, MCH 28.4, MCHC 32.6, RDW Std Deviation 43.4, RDW Coeff of Marisol 13.8, Plt Count 189, MPV 11.4, Immature Gran % (Auto) 0.500, Neut % (Auto) 73.2 H, Lymph % (Auto) 13.1 L, [place] % (Auto) 11.8 H, Eos % (Auto) 1.2, Baso % (Auto) 0.2, Absolute Neuts (auto) 6.9, Absolute Lymphs (auto) 1.23, Nucleated RBC % 0 06/05/20 05:46: Sodium 144, Potassium 4.5, Chloride 111 H, Carbon Dioxide 28.0, Anion Gap 5, BUN 22 H, Creatinine 2.32 H, Estim Creat Clear Calc 52.61, Est GFR (MDRD) Af Amer 41 L, Est GFR (MDRD) Non-Af 34 L, BUN/Creatinine Ratio 9.5 L, Glucose 103, Calcium 8.6, Total Bilirubin 0.70, AST 35, ALT 23, Alkaline Phosphatase 71, Total Protein 5.6 L, Albumin 2.6 L, Globulin 3.0, Albumin/Globulin Ratio 0.9, Lipase 104 Current Medications Alprazolam (Alprazolam 0.5 Mg Tablet) 0.5 mg PO BID PRN PRN PRN Reason: ANXIETY/AGITATION Last Admin: 06/05/20 09:36 Dose: 0.5 mg Documented by: Amlodipine Besylate (Amlodipine 10 Mg Tablet) 10 mg PO DAILY [facility] Last Admin: 06/05/20 09:36 Dose: 10 mg Documented by: Hydromorphone HCl (Hydromorphone 0.5 Mg/0.5 Ml Syringe) 0.5 mg IV Q2H PRN PRN PRN Reason: Pain Score 6-10 Last Admin: 06/04/20 07:56 Dose: 0.5 mg Documented by: Lactated Ringer's () 1,000 mls @ 100 mls/hr IV .Q10H [facility] Last Admin: 06/05/20 04:05 Dose: 100 mls/hr Documented by: Sodium Chloride () 250 mls @ 15 mls/hr IV .[id number] PRN PRN Reason: Saline Flush Sodium Chloride () 250 mls @ 15 mls/hr IV .[id number] PRN PRN Reason: Additional IVPB Infusion Pantoprazole Sodium 40 mg/ (Sodium Chloride) 110 mls @ 330 mls/hr IV Q12 [facility] Last Infusion: 06/05/20 08:07 Dose: Infused Documented by: Ciprofloxacin (Cipro) 400 mg in 200 mls @ 200 mls/hr IV Q12 [facility] Last Admin: 06/05/20 09:15 Dose: 200 mls/hr Documented by: Metronidazole (Flagyl) 500 mg in 100 mls @ 100 mls/hr IV Q8 [facility] Last Infusion: 06/05/20 07:03 Dose: Infused Documented by: Labetalol HCl 200 mg/ Sodium (Chloride) 250 mls @ 37.5 mls/hr CONT INF .Q6H40M [facility]; Protocol Last Admin: 06/05/20 09:14 Dose: 2 mg/min, 150 mls/hr Documented by: Metoprolol Tartrate (Metoprolol Tartrate 25 Mg Tablet) 25 mg PO BID [facility] Last Admin: 06/05/20 09:36 Dose: 25 mg Documented by: Ondansetron HCl (Ondansetron 4 Mg/2 Ml Vial) 4 mg IV Q8H PRN PRN PRN Reason: NAUSEA/VOMITING Last Admin: 06/04/20 07:47 Dose: 4 mg Documented by: Sodium Chloride (0.9% Saline Lock 10 Ml Syringe) 10 - 40 ml IV UD PRN PRN Reason: SALINE FLUSH Last Admin: 06/04/20 20:53 Dose: 20 ml Documented by: Medical Necessity - Tobacco Use Smoking Status: Never smoker Assessment/Plan All Active Problems Abnormal EKG (Acute) Acute enteritis (Acute) Hypertensive urgency (Acute) Acute kidney injury superimposed on CKD (Acute) This is a 34 years old male patient directly admitted from outside facility for abdominal pain, found to have findings consistent with acute enteritis, found to have hypertensive emergency and acute non-STEMI. #1 abdominal pain/acute enteritis: Remains on IV ciprofloxacin and Flagyl. NG tube taken out today. He denies any more abdominal pain, no nausea or vomiting. He has been passing flatus. He has been afebrile, leukocytosis resolved. Repeat LFT was unremarkable. CT scan abdomen and pelvis that was done at the other facility revealed thickening of the small bowel loops within the left upper quadrant associated with dilatation and edema, small bowel obstruction less likely and also revealed cholelithiasis. General surgery on the case. Started on clear liquid diet. Plan: Continue clear liquid diet, advance as tolerated, start p.o. meds, repeat CBC and BMP tomorrow morning, possible transfer to PCU later today if blood pressure improves. #2 hypertensive emergency: Blood pressure still related, he is back on IV labetalol drip. He was taken off labetalol drip here this morning but blood pressure back up to 190 systolic. Plan: Continue IV labetalol drip, start p.o. Norvasc and metoprolol, start Xanax as needed for anxiety, transfer to PCU if blood pressure improves and did not need IV labetalol drip. #3 acute kidney injury on top of stage III chronic kidney disease: Secondary to dehydration and poor oral intake. Baseline creatinine has been around 1.5 to 1.6 mg/dL, today's creatinine is up to 2.32, it is up from yesterday. Plan to continue IV fluids, repeat BMP tomorrow morning. #4 abnormal EKG/acute non-STEMI: This is attributed to hypertensive emergency given that he does have evidence of end organ damage. Repeat EKG from today again showing T wave inversion in leads II and III as well as V5 and V6, no acute ST elevation. Patient remains without chest pain. Troponin is high at 0.706. 2D echocardiogram revealed ejection fraction of 65 to 70%. Plan to start him on metoprolol, cardiology consult. #5 hypertension: Still uncontrolled, he is back on IV labetalol drip. Started on Norvasc and metoprolol today. Plan as above. #6 DVT prophylaxis: SCDs. This note was generated with [employer] dictation software. It may contain incorrect words, spelling, and punctuation that were not noted in checking the note before signing. Inpatient E&M: [id number] Subs Hosp L3
--- NOTE | 2020-06-05 14:26 | PCM.CONS.C ---
Reason for Consult Date of Consultation: 06/05/20 History of Present Illness: The patient is a 34 year old M [] Past Medical History Allergies/Adverse Reactions: Allergies No Known Allergies Allergy (Verified 06/03/20 21:21) Past Medical History (Chronic Problems): Chronic Problems Hypertension (Chronic) CKD (chronic kidney disease) stage 3, GFR 30-59 ml/min (Chronic) Surgical History: no surgical history - *Family History Maternal History Items: Diabetes, Hypertension Paternal History Items: Hypertension Smoking Status: Never smoker Objective: Vital Signs Temp Pulse Resp BP Pulse Ox 98 F 78 18 165/109 H 95 06/05/20 12:00 06/05/20 12:00 06/05/20 12:00 06/05/20 12:00 06/05/20 12:00 Oxygen Flow Rate (L/min) 2 Oxygen Delivery Method Room Air Weight: 260 lb 2.327 oz Body Mass Index (BMI) 31.8 Intake and Output for Last 24 Hours 06/03/20 06/04/20 06/05/20 23:59 23:59 23:59 Intake Total 4285.00 / 4315.00 4128.17 / 4128.17 Output Total 3250 / 3550 2775 / 2775 Balance 1035.00 / 765.00 1353.17 / 1353.17 General: Awake, Alert, Oriented x 3 HEENT: PERRL, EOMI, Sclera Non Icteric Neck: Supple, Good ROM, No Lymph Node Enlargement Lungs: Clear to auscultation Cardiovascular: Regular Rhythm, Normal S1, Normal S2, No Murmurs, No Rubs, No Gallops Vascular: Normal Femoral Pulses, Normal Radial Pulses, Normal Dorsalis Pedal Pulse, Normal Posterior Tibial Pulses Abdomen: Bowel Sounds Present, Soft, Non Tender, No HSM, No Organomegaly Extremities: No Cyanosis, No Clubbing, No edema Neurological: No Focal Motor or Sensory Deficit 06/04/20 16:40: Troponin I 0.706 H* 06/05/20 05:46: WBC 9.4, RBC 4.19 L, Hgb 11.9 L, Hct 36.5 L, MCV 87.1, MCH 28.4, MCHC 32.6, Plt Count 189, MPV 11.4, Immature Gran % (Auto) 0.500, Neut % (Auto) 73.2 H, Lymph % (Auto) 13.1 L, [place] % (Auto) 11.8 H, Eos % (Auto) 1.2, Baso % (Auto) 0.2, Absolute Neuts (auto) 6.9, Nucleated RBC % 0 06/05/20 05:46: Sodium 144, Potassium 4.5, Chloride 111 H, Carbon Dioxide 28.0, Anion Gap 5, BUN 22 H, Creatinine 2.32 H, Est GFR (MDRD) Af Amer 41 L, Est GFR (MDRD) Non-Af 34 L, BUN/Creatinine Ratio 9.5 L, Glucose 103, Calcium 8.6, Total Bilirubin 0.70 06/05/20 05:46: Troponin I 2.620 H* Rhythm: Normal sinus rhythm EKG: T wave inversion noted in the inferolateral leads consistent with inferolateral ischemia ECHO: LV function preserved with LVH Assessment/Plan 34-year-old patient, presented with epigastric pain Patient known to have history of hypertension and has been off medication with lisinopril On presentation he had change in the EKG which is T wave inversion noted in the inferolateral lead consistent with inferolateral ischemia and also has evaluation with cardiac biomarkers which showed elevated high sensitive troponins I up to 2.6. Symptoms resolved he does not have any epigastric pain no symptoms of chest pain Blood pressure was elevated and we manage it with the IV labetalol amlodipine and beta-brandon metoprolol I saw him today in the intensive care unit along with the nursing staff and discussed cardiac care plan in detail 1. Patient had epigastric discomfort with change in the EKG and elevated cardiac biomarker with a clinical diagnosis of CAD/non-STEMI 2. We will start him on heparin IV 3. Aspirin low-dose 4. Atorvastatin 5. We will continue on IV labetalol, beta-brandon and calcium channel brandon for better control of hypertension His echocardiographic evaluation showed LV systolic function preserved with evidence of low ventricle hypertrophy Recommendation is to proceed with cardiac catheterization, risk-benefit of the procedure explained in detail to the patient. Patient is a high risk patient due to CKD and renal insufficiency with the risk of contrast-induced nephropathy. He elected to proceed and informed consent obtained and placed in the chart.
[2020-06-05] MEDS: 0.9% Saline Lock 10 ML Syringe IV ×2 (14:56→20:57)
[2020-06-05] MEDS: HEPARIN/D5w 25,000 UNITS 25,000 UNITS/250 ML IV.SOLN. 16 UNITS IV (14:56)
--- NOTE | 2020-06-05 17:24 | NURSING ---
Linda in lab called at 1720 stating that there was issues with QC down in lab and the PTT was low but the specimen from 1500 was clotted so she cancelled it. Heparin gtt had already been infusing since 1500 at this time so determined to just draw next PTT at the scheduled time at 2100
[2020-06-05] MEDS: Atorvastatin Calcium 40 MG Tablet PO (20:46)
[2020-06-05] MEDS: 0.9% Normal Saline 1,000 ML 100 ML IV (21:13)
[2020-06-05 21:53] LABS: Partial Thromboplast Time > 250.0 Seconds (24.1-36.2)
[2020-06-06] VITALS (38 sets, daily range): BP systolic 118–209; BP diastolic 69–133; PULSE 73–94; RESP 10–26; TEMP 36.8–37.1; O2SAT 91–98
[2020-06-06 04:54] LABS: Absolute Lymphocyte Count 1.24 X10^3/uL (0.83-4.51); Absolute Neutrophil Count 6.8 X10^3/uL (2.0-7.7); Basophil# 0.05 X10^3/uL; Basophil% 0.5 % (0-1); Eosinophil# 0.36 X10^3/uL; Eosinophils% 3.7 % (0-5); Hematocrit 38.7 % (40-54); Hemoglobin 13.1 g/dL (13.0-16.5); Lymphocyte # 1.24 X10^3/ul (4.0); Lymphocyte % 12.9 % (19-41); Mean Corp Hgb Conc 33.9 g/dL (32-36); Mean Corpuscular Hgb 28.9 pg (27.0-32.0); Mean Corpuscular Volume 85.2 fL (80-94); Mean Platelet Vol. 11.5 fl (6.2-12.0); Monocyte# 1.16 X10^3/uL; Monocyte% 12.1 % (0-10); NRBC Flagged by Analyzer 0 % (0-5); Neutrophil # 6.75 X10^3/uL (2.7-7.7); Neutrophil % 70.3 % (47-70); Platelet Count 196 K/mm3 (150-450); RBC Distribution Width CV 13.8 % (11.6-14.6); RBC Distribution Width SD 42.6 fl (35.1-43.9); Red Blood Count 4.54 M/mm3 (4.6-6.2); White Blood Count 9.6 K/mm3 (4.4-11.0)
[2020-06-06 05:04] LABS: Partial Thromboplast Time 29.5 Seconds (24.1-36.2)
--- NOTE | 2020-06-06 05:06 | NURSING ---
Pt up to chair, stated very nervous about this procedure. Questioned if this testing is normal or should I be worried? Educated pt regarding test and procedures, explained possible reasons for elevated troponin levels, offered PRN morphine for slight generalized discomfort.
[2020-06-06] MEDS: 0.9% Saline Lock 10 ML Syringe IV ×3 (05:09→16:48)
[2020-06-06] MEDS: Morphine 2 MG/ML Syringe IV (05:10)
[2020-06-06 05:25] LABS: Anion Gap 6 (5-15); BUN 20 mg/dL (7-18); BUN/Creat Ratio 8.9 RATIO (10-20); Calcium,Total 8.9 mg/dL (8.5-10.1); Chloride 112 mmol/L (98-107); Creatinine, Serum 2.25 mg/dL (0.70-1.30); EST Glomerular Filtration Rate 35 mL/min (>60); Est Glom Filt Rate - Afr Amer 43 mL/min (>60); Estimated Creatinine Clearance 54.25 ml/min; Glucose 95 mg/dL (74-106); Potassium 3.5 mmol/L (3.5-5.1); Sodium Level 144 mmol/L (136-145)
[2020-06-06] MEDS: 0.9% Normal Saline 1,000 ML 100 ML IV (06:54)
[2020-06-06] MEDS: Midazolam 2 MG/2 ML Syringe IV (07:15)
--- NOTE | 2020-06-06 07:36 | PCM.PN.HOSP ---
Reason for Visit: Follow-up for hypertensive emergency with non-STEMI no abdominal pain possible due to enteritis, KAYLA on CKD Objective: Afebrile. Blood pressure is high, range 153/102?203/133. Denies chest pain or shortness of breath. Denies substance use, chronic alcohol use or smoking. Physical exam General: Alert, Oriented x3, Cooperative HEENT: Atraumatic, PERRLA, EOMI, Normocephalic Oral: No Gingival or Mucosal Lesions/ Ulcerations Neck: Supple, No JVD, Negative Carotid Bruits Lungs: Air entry diminished in bilateral lung bases. No crepitation/rhonchi Cardiovascular: Regular rate, Regular Rhythm, Normal S1, Normal S2, No murmurs Abdomen: Bowel Sounds Present, Soft, Non Tender, Non-Distended : No renal angle tenderness. No suprapubic tenderness. Extremities: Right radial artery access. No edema, Capillary Refill Less than 3 Seconds Skin: No rashes, No breakdown Musculoskeletal: No Tenderness to Palpation of Joints or Extremities Neurological: Cranial nerves II-XII grossly intact, Deep Tendon Reflexes 2+/4 and Symmetrical, Neuro grossly intact Psych/Mental Status: Normal Affect, Appropriate. Vitals/I&O's: Vital Signs Temp Pulse Resp BP Pulse Ox 98.3 F 88 14 203/133 H 91 06/06/20 04:00 06/06/20 07:00 06/06/20 07:00 06/06/20 07:00 06/06/20 07:00 Oxygen Flow Rate (L/min) 2 Oxygen Delivery Method Room Air Weight: 259 lb 11.2 oz Body Mass Index (BMI) 31.8 Intake and Output for Last 24 Hours 06/04/20 06/05/20 06/06/20 23:59 23:59 23:59 Intake Total 4285.00 / 4315.00 6033.68 / 6033.68 1622.87 / 1622.87 Output Total 3250 / 3550 4450 / 5375 2975 / 2975 Balance 1035.00 / 765.00 1583.68 / 658.68 -1352.13 / -1352.13 Laboratory Results 06/05/20 05:46: Troponin I 2.620 H* 06/05/20 15:00: APTT Cancelled 06/05/20 21:00: APTT > 250.0 H* 06/06/20 04:45: WBC 9.6, RBC 4.54 L, Hgb 13.1, Hct 38.7 L, MCV 85.2, MCH 28.9, MCHC 33.9, RDW Std Deviation 42.6, RDW Coeff of Marisol 13.8, Plt Count 196, MPV 11.5, Immature Gran % (Auto) 0.500, Neut % (Auto) 70.3 H, Lymph % (Auto) 12.9 L, [place] % (Auto) 12.1 H, Eos % (Auto) 3.7, Baso % (Auto) 0.5, Absolute Neuts (auto) 6.8, Absolute Lymphs (auto) 1.24, Nucleated RBC % 0 06/06/20 04:45: Sodium 144, Potassium 3.5, Chloride 112 H, Carbon Dioxide 26.0, Anion Gap 6, BUN 20 H, Creatinine 2.25 H, Estim Creat Clear Calc 54.25, Est GFR (MDRD) Af Amer 43 L, Est GFR (MDRD) Non-Af 35 L, BUN/Creatinine Ratio 8.9 L, Glucose 95, Calcium 8.9 06/06/20 04:45: APTT 29.5 Current Medications Alprazolam (Alprazolam 0.5 Mg Tablet) 0.5 mg PO BID PRN PRN PRN Reason: ANXIETY/AGITATION Last Admin: 06/05/20 20:47 Dose: 0.5 mg Documented by: Amlodipine Besylate (Amlodipine 5 Mg Tablet) 5 mg PO DAILY [facility] Aspirin (Aspirin 81 Mg Tab.Chew) 81 mg PO DAILY@0800 [facility] Atorvastatin Calcium (Atorvastatin Calcium 40 Mg Tablet) 40 mg PO QHS [facility] Last Admin: 06/05/20 20:46 Dose: 40 mg Documented by: Heparin Sodium (Porcine) (Heparin Injection (Vial) 5,000 Unit/Ml Vial) 0 unit IV UD PRN; Protocol PRN Reason: dose adjustment Sodium Chloride () 250 mls @ 15 mls/hr IV .[id number] PRN PRN Reason: Saline Flush Sodium Chloride () 250 mls @ 15 mls/hr IV .[id number] PRN PRN Reason: Additional IVPB Infusion Pantoprazole Sodium 40 mg/ (Sodium Chloride) 110 mls @ 330 mls/hr IV Q12 [facility] Last Infusion: 06/05/20 21:14 Dose: Infused Documented by: Labetalol HCl 200 mg/ Sodium (Chloride) 250 mls @ 37.5 mls/hr CONT INF .[id number] [facility]; Protocol Last Titration: 06/06/20 07:00 Dose: 2 mg/min, 150 mls/hr Documented by: Heparin Sodium/Dextrose () 25,000 units in 250 mls @ 16 mls/hr IV .[id number] [facility]; Protocol Last Titration: 06/06/20 03:00 Dose: 0 units/hr, 0 mls/hr Documented by: Sodium Chloride () 1,000 mls @ 100 mls/hr IV .Q10H [facility] Last Admin: 06/06/20 06:54 Dose: 100 mls/hr Documented by: Influenza Virus Vaccine Quadrival (Influenza Vaccine (6mos+)/Pf 0.5 Ml Syringe) 0.5 ml IM .ONCE ONE Stop: 06/06/20 07:23 Metoprolol Tartrate (Metoprolol Tartrate 25 Mg Tablet) 25 mg PO BID [facility] Last Admin: 06/05/20 20:46 Dose: 25 mg Documented by: Midazolam HCl (Midazolam 2 Mg/2 Ml Syringe) 2 mg IV X1 ONE Stop: 06/06/20 07:14 Morphine Sulfate (Morphine 2 Mg/Ml Syringe) 2 mg IV Q8H PRN PRN PRN Reason: Pain Score 4-10 Last Admin: 06/06/20 05:10 Dose: 2 mg Documented by: Ondansetron HCl (Ondansetron 4 Mg/2 Ml Vial) 4 mg IV Q8H PRN PRN PRN Reason: NAUSEA/VOMITING Last Admin: 06/04/20 07:47 Dose: 4 mg Documented by: Sodium Chloride (0.9% Saline Lock 10 Ml Syringe) 10 - 40 ml IV UD PRN PRN Reason: SALINE FLUSH Last Admin: 06/06/20 07:22 Dose: 10 ml Documented by: STROKE Vital Signs/Narrative: Vital Signs Temp Pulse Resp BP BP Pulse Ox 06/06/20 07:00 88 14 203/133 H 91 06/06/20 06:45 84 192/127 H 06/06/20 06:30 84 198/126 H 06/06/20 06:15 87 198/130 H 06/06/20 06:00 86 12 198/122 H 97 06/06/20 05:45 87 206/131 H 06/06/20 05:30 87 201/129 H 06/06/20 05:15 90 200/127 H 06/06/20 05:00 90 209/131 H 06/06/20 04:00 98.3 F 76 10 L 160/97 H 98 Medical Necessity - Tobacco Use Smoking Status: Never smoker Assessment/Plan All Active Problems (Last Updated 06/06/20 @ 11:46 by Honey Berg) Abnormal EKG (Acute) Acute enteritis (Acute) Hypertensive urgency (Acute) Acute kidney injury superimposed on CKD (Acute) This is a 34 years old male patient directly admitted from outside facility for abdominal pain, found to have findings consistent with acute enteritis, found to have hypertensive emergency and acute non-STEMI. #1 abdominal pain/acute enteritis with small bowel ileus most probably inflammatory or infectious: The patient was evaluated by surgeon. Initially had NG tube which was taken out on 06/05 and was on Cipro and Flagyl which was stopped 06/05. Patient not had nausea, abdominal pain or vomiting. Has been passing flatus. Leukocytosis resolved. Liver chemistry test normal except low albumin, 2.6. CT scan abdomen and pelvis that was done at the other facility revealed thickening of the small bowel loops within the left upper quadrant associated with dilatation and edema, most probably small bowel ileus and also revealed cholelithiasis. Diet was advanced from clear liquid. #2 hypertensive emergency: Blood pressure still labile with big fluctuation. Patient was put back on labetalol drip. Patient on amlodipine and metoprolol. On Xanax as needed for anxiety control. #3 acute kidney injury onstage III chronic kidney disease: Secondary to dehydration and poor oral intake. 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 Baseline creatinine has been around 1.5 to 1.6 mg/dL, BUN/creatinine stable for last 3 days about 2.3. Sodium is down 144. IV fluid decreased to 50 mill per hour to prevent JOSÉ MANUEL. #4 abnormal EKG/acute non-STEMI: This is attributed to hypertensive emergency given that he does have evidence of end organ damage. Repeat EKG on 06/05 showed T wave inversion in leads II and III as well as V5 and V6, no acute ST elevation. Patient remains without chest pain. Troponin is high at 0.706. 2D echocardiogram revealed ejection fraction of 65 to 70% with evidence of concentric LVH. The patient was seen by outsole paraffiner and started on IV heparin drip, low-dose aspirin, and atorvastatin. 06/06: Patient had cardiac cath reported normal coronary arteries. Started on hydralazine 100 mg p.o. 3 times daily #5 hypertension: Still uncontrolled, he is back on IV labetalol drip. Started on Norvasc and metoprolol today. Plan as above. #6 DVT prophylaxis: SCDs. Clinical Impression(s) from Imaging Studies [facility] X-Ray 06/04/20 06:20 IMPRESSION: Partial small bowel obstruction or ileus. Laboratory Results 06/05/20 05:46: Troponin I 2.620 H* 06/05/20 15:00: APTT Cancelled 06/05/20 21:00: APTT > 250.0 H* 06/06/20 04:45: WBC 9.6, RBC 4.54 L, Hgb 13.1, Hct 38.7 L, MCV 85.2, MCH 28.9, MCHC 33.9, RDW Std Deviation 42.6, RDW Coeff of Marisol 13.8, Plt Count 196, MPV 11.5, Immature Gran % (Auto) 0.500, Neut % (Auto) 70.3 H, Lymph % (Auto) 12.9 L, [place] % (Auto) 12.1 H, Eos % (Auto) 3.7, Baso % (Auto) 0.5, Absolute Neuts (auto) 6.8, Absolute Lymphs (auto) 1.24, Nucleated RBC % 0 06/06/20 04:45: Sodium 144, Potassium 3.5, Chloride 112 H, Carbon Dioxide 26.0, Anion Gap 6, BUN 20 H, Creatinine 2.25 H, Estim Creat Clear Calc 54.25, Est GFR (MDRD) Af Amer 43 L, Est GFR (MDRD) Non-Af 35 L, BUN/Creatinine Ratio 8.9 L, Glucose 95, Calcium 8.9 06/06/20 04:45: APTT 29.5 Inpatient E&M: 61805 Subs Hosp L3
[2020-06-06] MEDS: amLODIPine 5 MG Tablet PO (07:54)
[2020-06-06] MEDS: Aspirin 81 MG TAB.CHEW PO (07:55)
--- NOTE | 2020-06-06 10:55 | CL.D_ITS ---
Patient Name: WILTON SOTO Study Date: 06/06/2020 Performing: John Trevino MD Ht: 75 inches 191 cm : 1985 Wt: 260.5 lbs 118 kg Age: 34 Gender: male BSA: 2.46 PROCEDURE(S) PERFORMED [id number]/LV CLINICAL PROFILE AND INDICATIONS Indications: Suspected CAD Heart Failure: None Stress/Imaging Stress/Image Study Performed: No CONCLUSIONS Normal coronary arteries RECOMMENDATIONS Medical therapy DESCRIPTION OF PROCEDURE The patient arrived to the procedure lab. The risks and benefits of the procedure as well as a full d escription of our services here and current unavailability of surgical backup were fully explained to the patient and/or their significant other prior to the catheterization. The Timeout was completed, verifying the correct patient and procedure. The patient's procedural site was prepped and draped in the usual fashion. Local anesthetic was given subcutaneously to right radial region with Lidocaine 2% . Using a modified Seldinger technique, arterial access was obtained via the right radial artery, a 6 Fr sheath was inserted. Left Coronary Artery selective angiography was performed in multiple views u sing a 5 Fr. 4.0 [place] catheter. Right Coronary Artery selective angiography was then performed in mu ltiple views using a 5 Fr. 4.0 [place] catheter.The arterial sheath was pulled and a TR Band was applie d for hemostasis CORONARY ANGIOGRAPHY DOMINANCE: Left Dominant LEFT HEART ASSESSMENT LV wall motion not assessed LEFT MAIN: Angiographically normal LEFT ANTERIOR DESCENDING ARTERY: Angiographically normal CIRCUMFLEX ARTERY: Angiographically normal RIGHT CORONARY ARTERY: Mild luminal irregularities COMPLICATIONS No Complications PROCEDURE MEDICATIONS Versed 1 mg IV Fentanyl 50 mcg IV Labetalol drip running per floor protocol. 3 mg/min, or 180cc/hr. concentration is now 200mg in 200m l.^FreeText^ 06/06/2020 10:07:07 Nitro glycerin 25mg / 250ml D5W @ 5 mcg/min IV started 06/06/2020 08:48:39 SUMMARY OF HEMODYNAMIC DATA Time AIR REST ECG 08:08:44 ECG 10:00:28 AO 161/111 (135) SA 10:16:41 AO 0/0 (74) 10:26:12 AO 185/102 (131) 10:26:17 Signed By John Trevino MD On 06/06/2020 10:54:55 AM John Trevino MD
--- NOTE | 2020-06-06 11:10 | PCM.PN.SRG ---
Subjective: Patient back from heart cath?normal. Patient denies any abdominal pain still had a bowel movement yesterday. - Physical Exam Vitals/I&O's: Vital Signs Temp Pulse Resp BP Pulse Ox 98.3 F 88 14 203/133 H 91 06/06/20 04:00 06/06/20 07:00 06/06/20 07:00 06/06/20 07:00 06/06/20 07:00 Oxygen Flow Rate (L/min) 2 Oxygen Delivery Method Room Air Weight: 259 lb 11.2 oz Body Mass Index (BMI) 31.8 Intake and Output for Last 24 Hours 06/04/20 06/05/20 06/06/20 23:59 23:59 23:59 Intake Total 4285.00 / 4315.00 6033.68 / 6033.68 1744.54 / 1744.54 Output Total 3250 / 3550 4450 / 5375 2975 / 2975 Balance 1035.00 / 765.00 1583.68 / 658.68 -1230.46 / -1230.46 General: Alert, Oriented x3, Cooperative, No apparent distress Lungs: Normal air movement Cardiovascular: Regular rate Abdomen: Soft, Non Tender, Non-Distended Laboratory Results 06/05/20 05:46: Troponin I 2.620 H* 06/05/20 15:00: APTT Cancelled 06/05/20 21:00: APTT > 250.0 H* 06/06/20 04:45: WBC 9.6, RBC 4.54 L, Hgb 13.1, Hct 38.7 L, MCV 85.2, MCH 28.9, MCHC 33.9, RDW Std Deviation 42.6, RDW Coeff of Marisol 13.8, Plt Count 196, MPV 11.5, Immature Gran % (Auto) 0.500, Neut % (Auto) 70.3 H, Lymph % (Auto) 12.9 L, [place] % (Auto) 12.1 H, Eos % (Auto) 3.7, Baso % (Auto) 0.5, Absolute Neuts (auto) 6.8, Absolute Lymphs (auto) 1.24, Nucleated RBC % 0 06/06/20 04:45: Sodium 144, Potassium 3.5, Chloride 112 H, Carbon Dioxide 26.0, Anion Gap 6, BUN 20 H, Creatinine 2.25 H, Estim Creat Clear Calc 54.25, Est GFR (MDRD) Af Amer 43 L, Est GFR (MDRD) Non-Af 35 L, BUN/Creatinine Ratio 8.9 L, Glucose 95, Calcium 8.9 06/06/20 04:45: APTT 29.5 Current Medications Alprazolam (Alprazolam 0.5 Mg Tablet) 0.5 mg PO BID PRN PRN PRN Reason: ANXIETY/AGITATION Last Admin: 06/05/20 20:47 Dose: 0.5 mg Documented by: Amlodipine Besylate (Amlodipine 10 Mg Tablet) 10 mg PO DAILY [facility] Aspirin (Aspirin 81 Mg Tab.Chew) 81 mg PO DAILY@0800 [facility] Last Admin: 06/06/20 07:55 Dose: 81 mg Documented by: Atorvastatin Calcium (Atorvastatin Calcium 40 Mg Tablet) 40 mg PO QHS [facility] Last Admin: 06/05/20 20:46 Dose: 40 mg Documented by: Heparin Sodium (Porcine) (Heparin Injection (Vial) 5,000 Unit/Ml Vial) 0 unit IV UD PRN; Protocol PRN Reason: dose adjustment Hydralazine HCl (Hydralazine 50 Mg Tablet) 100 mg PO TID [facility] Sodium Chloride () 250 mls @ 15 mls/hr IV .[id number] PRN PRN Reason: Saline Flush Sodium Chloride () 250 mls @ 15 mls/hr IV .[id number] PRN PRN Reason: Additional IVPB Infusion Pantoprazole Sodium 40 mg/ (Sodium Chloride) 110 mls @ 330 mls/hr IV Q12 [facility] Last Infusion: 06/05/20 21:14 Dose: Infused Documented by: Heparin Sodium/Dextrose () 25,000 units in 250 mls @ 16 mls/hr IV .[id number] [facility]; Protocol Last Titration: 06/06/20 03:00 Dose: 0 units/hr, 0 mls/hr Documented by: Sodium Chloride () 1,000 mls @ 100 mls/hr IV .Q10H [facility] Last Infusion: 06/06/20 08:07 Dose: 0 mls/hr Documented by: Labetalol HCl 200 mg/ Sodium (Chloride) 200 mls @ 30 mls/hr CONT INF .Q6H40M [facility]; Protocol Last Admin: 06/06/20 08:08 Dose: 0.5 mg/min, 30 mls/hr Documented by: Metoprolol Tartrate (Metoprolol Tartrate 50 Mg Tablet) 50 mg PO BID [facility] Morphine Sulfate (Morphine 2 Mg/Ml Syringe) 2 mg IV Q8H PRN PRN PRN Reason: Pain Score 4-10 Last Admin: 06/06/20 05:10 Dose: 2 mg Documented by: Ondansetron HCl (Ondansetron 4 Mg/2 Ml Vial) 4 mg IV Q8H PRN PRN PRN Reason: NAUSEA/VOMITING Last Admin: 06/04/20 07:47 Dose: 4 mg Documented by: Sodium Chloride (0.9% Saline Lock 10 Ml Syringe) 10 - 40 ml IV UD PRN PRN Reason: SALINE FLUSH Last Admin: 06/06/20 07:22 Dose: 10 ml Documented by: Medical Necessity - Tobacco Use Smoking Status: Never smoker Assessment/Plan All Active Problems Abnormal EKG (Acute) Acute enteritis (Acute) Hypertensive urgency (Acute) Acute kidney injury superimposed on CKD (Acute) 34-year-old male with abdominal pain, small section of dilated small bowel question could be infectious/inflammatory?resolved, leukocytosis?resolved, uncontrolled HTN 1. Okay for regular diet when okay with primary, will sign off call with any questions 2. Antibiotics DC'd yesterday white blood count within normal limits 3. Hypertension?medication per hospitalist Sara Veronica M.D. Pager: [phone] [facility] [address] [place] [address], Outpatient [place], [address] [place] [address] Office: [phone] Inpatient E&M: [id number] [facility] Hosp L2
[2020-06-06] MEDS: Metoprolol Tartrate 50 MG Tablet PO ×2 (11:11→21:07)
[2020-06-06] MEDS: hydrALAZINE 50 MG Tablet 100 MG PO ×3 (11:12→21:10)
[2020-06-06] MEDS: amLODIPine 10 MG Tablet PO (14:31)
--- NOTE | 2020-06-06 15:53 | CASEMGMT ---
SW met w/pt briefly, SW had received referral due to flat affect during initial assessment w/CM. Pt alert, answered all questions directly and appropriately. SW spoke w/pt about how he is feeling. Pt had stated this morning to RN about being nervous prior to the procedure this morning. Pt states is feeling okay. He states he got a clean bill of health, but his blood pressure is all over the place. He states he was hoping w/diet and exercise to not have heart issues, but it's not enough. Pt states he has inherited cardiac issues from both parents. SW offered pt resources for counseling if needed, pt declined. Pt does not anticipate any needs at this time, states is going home tomorrow. SW remains available should any needs arise. CASEY Dickey
[2020-06-06] MEDS: 0.9% Normal Saline 1,000 ML 50 ML IV (17:25)
[2020-06-06] MEDS: Atorvastatin Calcium 40 MG Tablet PO (21:10)
[2020-06-06] MEDS: ALPRAZolam 0.5 MG Tablet PO (22:27)
[2020-06-07] VITALS (12 sets, daily range): BP systolic 163–208; BP diastolic 89–119; PULSE 67–95; RESP 16–18; TEMP 36.7–36.9; O2SAT 95–98
[2020-06-07] MEDS: hydrALAZINE 50 MG Tablet 100 MG PO (06:03)
[2020-06-07] MEDS: hydrALAZINE 20 MG/ML Vial IV (06:22)
[2020-06-07 06:37] LABS: Absolute Neutrophil Count 6.2 X10^3/uL (2.0-7.7); Basophil# 0.05 X10^3/uL; Basophil% 0.5 % (0-1); Eosinophil# 0.49 X10^3/uL; Eosinophils% 5.3 % (0-5); Hematocrit 39.4 % (40-54); Hemoglobin 12.8 g/dL (13.0-16.5); Lymphocyte % 14.1 % (19-41); Mean Corp Hgb Conc 32.5 g/dL (32-36); Mean Corpuscular Hgb 28.2 pg (27.0-32.0); Mean Corpuscular Volume 86.8 fL (80-94); Mean Platelet Vol. 11.5 fl (6.2-12.0); Monocyte# 1.16 X10^3/uL; Monocyte% 12.6 % (0-10); NRBC Flagged by Analyzer 0 % (0-5); Neutrophil # 6.17 X10^3/uL (2.7-7.7); Neutrophil % 67.1 % (47-70); Platelet Count 218 K/mm3 (150-450); RBC Distribution Width CV 13.7 % (11.6-14.6); RBC Distribution Width SD 43.6 fl (35.1-43.9); Red Blood Count 4.54 M/mm3 (4.6-6.2); White Blood Count 9.2 K/mm3 (4.4-11.0)
[2020-06-07 07:01] LABS: Anion Gap 8 (5-15); BUN 19 mg/dL (7-18); Calcium,Total 8.9 mg/dL (8.5-10.1); Chloride 112 mmol/L (98-107); Creatinine, Serum 2.11 mg/dL (0.70-1.30); EST Glomerular Filtration Rate 38 mL/min (>60); Est Glom Filt Rate - Afr Amer 46 mL/min (>60); Estimated Creatinine Clearance 57.85 ml/min; Glucose 88 mg/dL (74-106); Potassium 3.4 mmol/L (3.5-5.1); Sodium Level 143 mmol/L (136-145)
[2020-06-07] MEDS: amLODIPine 10 MG Tablet PO (07:22)
[2020-06-07] MEDS: Aspirin 81 MG TAB.CHEW PO (07:22)
[2020-06-07] MEDS: Metoprolol Tartrate 50 MG Tablet PO ×2 (07:22→09:46)
[2020-06-07] MEDS: ALPRAZolam 0.5 MG Tablet PO (07:25)
--- NOTE | 2020-06-07 08:43 | PN.CARD_ITS ---
Subjectve: Patient seen and evaluated. Objective: Vital Signs Temp Pulse Resp BP Pulse Ox 98.4 F 95 16 208/119 H 95 06/07/20 06:00 06/07/20 07:22 06/07/20 06:00 06/07/20 06:22 06/07/20 07:10 Oxygen Flow Rate (L/min) 2 Oxygen Delivery Method Room Air Weight: 248 lb 14.43 oz Body Mass Index (BMI) 31.8 Intake and Output for Last 24 Hours 06/05/20 06/06/20 06/07/20 23:59 23:59 23:59 Intake Total 6033.68 / 6033.68 3719.28 / 4119.28 1221.67 / 1221.67 Output Total 4450 / 5375 4375 / 4375 Balance 1583.68 / 658.68 -655.72 / -255.72 1221.67 / 1221.67 General: Awake, Alert, Oriented x 3 HEENT: PERRL, EOMI, Sclera Non Icteric Neck: Supple, Good ROM, No Lymph Node Enlargement Lungs: Clear to auscultation Cardiovascular: Regular Rhythm, Normal S1, Normal S2, No Murmurs, No Rubs, No Gallops 06/07/20 06:00: WBC 9.2, RBC 4.54 L, Hgb 12.8 L, Hct 39.4 L, MCV 86.8, MCH 28.2, MCHC 32.5, Plt Count 218, MPV 11.5, Immature Gran % (Auto) 0.400, Neut % (Auto) 67.1, Lymph % (Auto) 14.1 L, [place] % (Auto) 12.6 H, Eos % (Auto) 5.3 H, Baso % (Auto) 0.5, Absolute Neuts (auto) 6.2, Nucleated RBC % 0 06/07/20 06:00: Sodium 143, Potassium 3.4 L, Chloride 112 H, Carbon Dioxide 23.0, Anion Gap 8, BUN 19 H, Creatinine 2.11 H, Est GFR (MDRD) Af Amer 46 L, Est GFR (MDRD) Non-Af 38 L, BUN/Creatinine Ratio 9.0 L, Glucose 88, Calcium 8.9 Rhythm: EKG: ECHO: Stress Test: Cardiac Cath: PCI: CT Surgery: Holter monitor: EPS: PPM: CXR: Chest CT Scan: Medical Necessity - Tobacco Use Smoking Status: Never smoker Assessment/Plan 1. Severe hypertension * Patient presented with severe hypertension with abnormal cardiac enzyme elevation. Cardiac catheterization did not demonstrate any obstructive coronary disease. * My recommendation at this time were to continue to treat the hypertension as follows: With amlodipine, hydralazine, metoprolol. * Echocardiogram demonstrated preserved left ventricular function with concentric left ventricular hypertrophy. * Medication compliance has been emphasized.
[2020-06-07] MEDS: Pantoprazole Sodium 40 MG Tablet PO (09:46)
[2020-06-07] MEDS: Potassium Chloride Oral Tablet 20 MEQ 40 MEQ PO (09:46)
--- NOTE | 2020-06-07 11:03 | DCINST_ITS ---
- Discharge Diagnoses Current Active Problems: Current Active and Chronic Problems (Last Updated 06/06/20 @ 11:46 by Honey Berg) CKD (chronic kidney disease) stage 3, GFR 30-59 ml/min (Chronic) You will use the following diet at home:: Cardiac Your food should be the consistency of: Regular Discharge Activity: Return to Normal Activity Call your doctor if you observe: Fever of 101 or Higher, Coldness, Increased Pain, Numbness or Tingling, Change in Color, Inability to urinate, Inability to have a bowel movement, Shortness of breath, Dizziness, Fainting spells, Swelling in the ankles, Chest pain, Prolonged hiccoughing, Increased palpitations (irregular heartbeat), Calf discomfort, Uncontrolled pain Allergies/Adverse Reactions: Allergies No Known Allergies Allergy (Verified 06/03/20 21:21) Medications to take at Discharge Amlodipine [Norvasc] 10 mg PO DAILY #30 tab 06/07/20 Atorvastatin Calcium [Lipitor] 40 mg PO QHS #30 tab 06/07/20 Hydralazine HCl 100 mg PO TID #90 tab 06/07/20 Metoprolol Tartrate [Lopressor (beta brandon)] 100 mg PO BID #60 tab 06/07/20 Pantoprazole Sodium [Protonix] 40 mg PO DAILY #30 tab 06/07/20 The following prescriptions were given: Hydralazine HCl 100 mg PO TID #90 tab Transmission Status: Pending to [id number] Atorvastatin Calcium [Lipitor] 40 mg PO QHS #30 tab Transmission Status: Pending to [id number] Metoprolol Tartrate [Lopressor (beta brandon)] 100 mg PO BID #60 tab Transmission Status: Pending to [id number] Amlodipine [Norvasc] 10 mg PO DAILY #30 tab Transmission Status: Pending to [id number] Pantoprazole Sodium [Protonix] 40 mg PO DAILY #30 tab Transmission Status: Pending to [id number] Primary Care Physician: Tamir Ross MD [Primary Care Provider] - Please follow up with your Primary Care Physician in: in 2 weeks Test Results: Test results from this visit will be discussed in further detail at your follow- up appointment, if applicable.
--- NOTE | 2020-06-07 11:04 | DS.PCM_ITS ---
Discharge Date and Diagnosis Date of Admission: 06/03/20 Date of Discharge: 06/07/20 - Primary Discharge Diagnosis Acute Problems: Hypertensive emergency - Secondary Discharge Diagnosis Chronic Problems: Chronic Problems (Last Updated 06/06/20 @ 11:46 by Honey Berg) Essential (primary) hypertension (Chronic) CKD (chronic kidney disease) stage 3, GFR 30-59 ml/min (Chronic) Hospital Course and Treatment Summary of Care Provided: [] This is a 34 years old male patient directly admitted from outside facility for abdominal pain, found to have findings consistent with acute enteritis, found to have hypertensive emergency and acute non-STEMI. #1 abdominal pain/acute enteritis with small bowel ileus most probably inflammatory or infectious: The patient was evaluated by surgeon. Initially had NG tube which was taken out on 06/05 and was on Cipro and Flagyl which was stopped 06/05. Patient not had nausea, abdominal pain or vomiting. Has been passing flatus. Leukocytosis resolved. Liver chemistry test normal except low albumin, 2.6. CT scan abdomen and pelvis that was done at the other facility revealed thickening of the small bowel loops within the left upper quadrant associated with dilatation and edema, most probably small bowel ileus and also revealed cholelithiasis. Diet was advanced from clear liquid to regular cardiac diet. Small bowel ileus resolved. #2 hypertensive emergency: Blood pressure still labile with big fluctuation. Patient was put back on labetalol drip. Patient on amlodipine and metoprolol. On Xanax as needed for anxiety control. Patient blood pressure is difficult to control. Discharge on hydralazine 100 mg 3 times daily, metoprolol 100 mg twice daily, Norvasc 10 mg daily. Advised to follow-up PCP. If patient is still high will need work-up to rule out secondary causes of hypertension but patient is still not on diuretic (therefore does not meet definition of resistant hypertension) because of chronic kidney disease. #3 acute kidney injury onstage III chronic kidney disease: Secondary to dehydration and poor oral intake. 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 Baseline creatinine has been around 1.5 to 1.6 mg/dL, BUN/creatinine stable for last 3 days about 2.3. Sodium is down 144. IV fluid decreased to 50 mill per hour to prevent JOSÉ MANUEL. 06/07: BUN/creatinine better, /2.11. #4 abnormal EKG/acute non-STEMI: This is attributed to hypertensive emergency given that he does have evidence of end organ damage. Repeat EKG on 06/05 showed T wave inversion in leads II and III as well as V5 and V6, no acute ST elevation. Patient remains without chest pain. Troponin is high at 0.706. 2D echocardiogram revealed ejection fraction of 65 to 70% with evidence of concentric LVH. The patient was seen by drill hand and started on IV heparin drip, low-dose aspirin, and atorvastatin. 06/06: Patient had cardiac cath reported normal coronary arteries. #5 hypertension: Still uncontrolled, he is back on IV labetalol drip. Started on Norvasc and metoprolol today. Plan as above. #6 DVT prophylaxis: SCDs. Discharge medication reconciliation done. Discharge follow-up instructions com pleted. Discharge process discussed with the patient and all questions were answered to patient's satisfaction. Total time spent, exact 35 minutes on discharge meds reconciliation, examination, coordination of care with nurses and ancillary staff, review of imaging and blood test and discussion with the patient on follow-up instructions Clinical Impression(s) from Imaging Studies [facility] X-Ray 06/04/20 06:20 IMPRESSION: Partial small bowel obstruction or ileus. Objective: Patient blood pressure is better. It was 208/119 in the morning. Decreased to 167/89. Heart rate is controlled. Patient is restless to go home. Physical exam General: Alert, Oriented x3, Cooperative HEENT: Atraumatic, PERRLA, EOMI, Normocephalic Oral: No Gingival or Mucosal Lesions/ Ulcerations Neck: Supple, No JVD, Negative Carotid Bruits Lungs: Air entry diminished in bilateral lung bases. No crepitation/rhonchi Cardiovascular: Regular rate, Regular Rhythm, Normal S1, Normal S2, No murmurs Abdomen: Bowel Sounds Present, Soft, Non Tender, Non-Distended : No renal angle tenderness. No suprapubic tenderness. Extremities: No edema, Capillary Refill Less than 3 Seconds Skin: No rashes, No breakdown Musculoskeletal: No Tenderness to Palpation of Joints or Extremities Neurological: Cranial nerves II-XII grossly intact, Deep Tendon Reflexes 2+/4 and Symmetrical, Neuro grossly intact Psych/Mental Status: Normal Affect, Appropriate. - Physical Exam Vitals/I&O's: Vital Signs Temp Pulse Resp BP Pulse Ox 98.0 F 95 18 163/89 H 98 06/07/20 09:48 06/07/20 09:48 06/07/20 09:48 06/07/20 09:48 06/07/20 09:48 Oxygen Flow Rate (L/min) 2 Oxygen Delivery Method Room Air Weight: 248 lb 14.43 oz Body Mass Index (BMI) 31.8 Intake and Output for Last 24 Hours 06/05/20 06/06/20 06/07/20 23:59 23:59 23:59 Intake Total 6033.68 / 6033.68 3719.28 / 4119.28 1221.67 / 1221.67 Output Total 4450 / 5375 4375 / 4375 Balance 1583.68 / 658.68 -655.72 / -255.72 1221.67 / 1221.67 Laboratory Results 06/07/20 06:00: WBC 9.2, RBC 4.54 L, Hgb 12.8 L, Hct 39.4 L, MCV 86.8, MCH 28.2, MCHC 32.5, RDW Std Deviation 43.6, RDW Coeff of Marisol 13.7, Plt Count 218, MPV 11.5, Immature Gran % (Auto) 0.400, Neut % (Auto) 67.1, Lymph % (Auto) 14.1 L, [place] % (Auto) 12.6 H, Eos % (Auto) 5.3 H, Baso % (Auto) 0.5, Absolute Neuts (auto) 6.2, Absolute Lymphs (auto) 1.30, Nucleated RBC % 0 06/07/20 06:00: Sodium 143, Potassium 3.4 L, Chloride 112 H, Carbon Dioxide 23.0, Anion Gap 8, BUN 19 H, Creatinine 2.11 H, Estim Creat Clear Calc 57.85, Est GFR (MDRD) Af Amer 46 L, Est GFR (MDRD) Non-Af 38 L, BUN/Creatinine Ratio 9.0 L, Glucose 88, Calcium 8.9 Current Medications Alprazolam (Alprazolam 0.5 Mg Tablet) 0.5 mg PO BID PRN PRN PRN Reason: ANXIETY/AGITATION Last Admin: 06/07/20 07:25 Dose: 0.5 mg Documented by: Amlodipine Besylate (Amlodipine 10 Mg Tablet) 10 mg PO DAILY [facility] Last Admin: 06/07/20 07:22 Dose: 10 mg Documented by: Aspirin (Aspirin 81 Mg Tab.Chew) 81 mg PO DAILY@0800 [facility] Last Admin: 06/07/20 07:22 Dose: 81 mg Documented by: Atorvastatin Calcium (Atorvastatin Calcium 40 Mg Tablet) 40 mg PO QHS [facility] Last Admin: 06/06/20 21:10 Dose: 40 mg Documented by: Hydralazine HCl (Hydralazine 50 Mg Tablet) 100 mg PO TID [facility] Last Admin: 06/07/20 06:03 Dose: 100 mg Documented by: Hydralazine HCl (Hydralazine 20 Mg/Ml Vial) 10 mg IV Q4H PRN PRN PRN Reason: SBP more than 160 mmHg Sodium Chloride () 250 mls @ 15 mls/hr IV .[id number] PRN PRN Reason: Saline Flush Sodium Chloride () 250 mls @ 15 mls/hr IV .[id number] PRN PRN Reason: Additional IVPB Infusion Sodium Chloride () 1,000 mls @ 50 mls/hr IV .Q20H [facility] Last Infusion: 06/07/20 07:27 Dose: 0 mls/hr Documented by: Labetalol HCl (Labetalol 100 Mg/20 Ml Vial) 20 mg IV X1 PRN PRN Reason: SBP>180 OR DBP>110 Metoprolol Tartrate (Metoprolol Tartrate 100 Mg Tablet) 100 mg PO BID [facility] Morphine Sulfate (Morphine 2 Mg/Ml Syringe) 2 mg IV Q8H PRN PRN PRN Reason: Pain Score 4-10 Last Admin: 06/06/20 05:10 Dose: 2 mg Documented by: Ondansetron HCl (Ondansetron 4 Mg/2 Ml Vial) 4 mg IV Q8H PRN PRN PRN Reason: NAUSEA/VOMITING Last Admin: 06/04/20 07:47 Dose: 4 mg Documented by: Pantoprazole Sodium (Pantoprazole Sodium 40 Mg Tablet) 40 mg PO DAILY [facility] Last Admin: 06/07/20 09:46 Dose: 40 mg Documented by: Sodium Chloride (0.9% Saline Lock 10 Ml Syringe) 10 - 40 ml IV UD PRN PRN Reason: SALINE FLUSH Last Admin: 06/06/20 16:48 Dose: 10 ml Documented by: Discharge Activity: Return to Normal Activity Call your doctor if you observe: Fever of 101 or Higher, Coldness, Increased Pain, Numbness or Tingling, Change in Color, Inability to urinate, Inability to have a bowel movement, Shortness of breath, Dizziness, Fainting spells, Swelling in the ankles, Chest pain, Prolonged hiccoughing, Increased palpitations (irregular heartbeat), Calf discomfort, Uncontrolled pain Home Medications: Medications to take at Discharge Amlodipine [Norvasc] 10 mg PO DAILY #30 tab 06/07/20 Atorvastatin Calcium [Lipitor] 40 mg PO QHS #30 tab 06/07/20 Hydralazine HCl 100 mg PO TID #90 tab 06/07/20 Metoprolol Tartrate [Lopressor (beta brandon)] 100 mg PO BID #60 tab 06/07/20 Pantoprazole Sodium [Protonix] 40 mg PO DAILY #30 tab 06/07/20 Following Prescriptions Were Given to Patient: Hydralazine HCl 100 mg PO TID #90 tab Transmission Status: Received by [facility][id number] Atorvastatin Calcium [Lipitor] 40 mg PO QHS #30 tab Transmission Status: Received by [id number] Metoprolol Tartrate [Lopressor (beta brandon)] 100 mg PO BID #60 tab Transmission Status: Received by [id number] Amlodipine [Norvasc] 10 mg PO DAILY #30 tab Transmission Status: Received by [id number] Pantoprazole Sodium [Protonix] 40 mg PO DAILY #30 tab Transmission Status: Received by [id number] Primary Care Physician: Tamir Ross MD [Primary Care Provider] - Please follow up with your Primary Care Physician in: in 2 weeks Medical Necessity - Tobacco Use Smoking Status: Never smoker Meaningful Use Info Meaningful Use Diagnoses (Choose all that apply): None applicable Inpatient E&M: 54777 Disch Hosp
[2020-06-07 11:40] LABS: Cholesterol 212 mg/dL (200); High Density Lipoprotein 45 mg/dL; Triglycerides 164 mg/dL; Very Low Density Lipoprotein 33 mg/dL (5-40)
--- NOTE | 2020-06-07 11:40 | PHA.DC.MC ---
Pharmacy Service has performed discharge medication reconciliation and counseling for this patient. 1. AMLODIPINE 10MG PO DAILY 2. ATORVASTATIN 40MG PO QHS 3. HYDRALAZINE 100MG PO TID 4. METOPROLOL TARTRATE 100MG PO BID 5. PANTOPRAZOLE 40MG PO DAILY The patient's discharge medication list was reviewed for discrepancies and discrepancies were resolved. Home Medications Amlodipine [Norvasc] 10 mg PO DAILY #30 tab 06/07/20 Atorvastatin Calcium [Lipitor] 40 mg PO QHS #30 tab 06/07/20 Hydralazine HCl 100 mg PO TID #90 tab 06/07/20 Metoprolol Tartrate [Lopressor (beta brandon)] 100 mg PO BID #60 tab 06/07/20 Pantoprazole Sodium [Protonix] 40 mg PO DAILY #30 tab 06/07/20 The patient was counseled on the following discharge medications and changes in medications for homegoing were reviewed. The Reason for Use, instructions for use, and potential side effects were reviewed for all new medications. The patient's questions regarding all of their medications were answered. The patient was able to verbally demonstrate an understanding of their discharge medications. Patient was counseled by pharmacy benefit manager, Jesusita.
== END 2020-06-07 11:51 | disposition home or self-care (01) | DRG 391 ==
LOC: ICU 06-06 16:13 → PCU 06-06 17:09
PROVIDERS: Hospitalist; Internal Medicine Interventional Cardiology; Admitting Provider Internal Medicine; PCP Family Medicine; Referring Provider Internal Medicine; Visit Provider Internal Medicine
DX: K52.9 Noninfective gastroenteritis and colitis, unspecified (principal); I21.4 Non-ST elevation (NSTEMI) myocardial infarction; K56.7 Ileus, unspecified; I16.1 Hypertensive emergency; N18.30 Chronic kidney disease, stage 3 unspecified; I12.9 Hypertensive chronic kidney disease with stage 1 through stage 4 chronic kidney disease, or unspecified chronic kidney disease; E86.0 Dehydration; F41.9 Anxiety disorder, unspecified; K80.20 Calculus of gallbladder without cholecystitis without obstruction
CPT/HCPCS: 36415; 74018; 80048; 80053; 80061; 83690; 84484; 85025; 85652; 85730; 93005; 93306; 93458; 99152; 99153; J7030; J7050; J7120; Q9957; Q9967; A4216; C1769; C1894; C8929; J0744; J2405

== ENCOUNTER → 2020-06-08 16:46 | Outpatient (CLI) | payer OTHER, SELFPAY ==
[2020-06-03 19:00] VITALS: BMI 31.8
[2020-06-08 18:30] LABS: Anion Gap 9 (5-15); BUN 32 mg/dL (7-18); BUN/Creat Ratio 13.9 RATIO (10-20); Calcium,Total 9.6 mg/dL (8.5-10.1); Chloride 107 mmol/L (98-107); Creatinine, Serum 2.31 mg/dL (0.70-1.30); EST Glomerular Filtration Rate 34 mL/min (>60); Est Glom Filt Rate - Afr Amer 41 mL/min (>60); Glucose 94 mg/dL (74-106); Potassium 3.8 mmol/L (3.5-5.1); Sodium Level 139 mmol/L (136-145)
== END ==
PROVIDERS: PCP Family Medicine; Referring Provider Family Medicine; Visit Provider Family Medicine
DX: I10 Essential (primary) hypertension (principal)
CPT/HCPCS: 36415; 80048

== ENCOUNTER → 2020-06-09 10:00 | Outpatient (CLI) | payer OTHER, SELFPAY ==
[2020-06-03 19:00] VITALS: BMI 31.8
[2020-06-09 13:07] LABS: Protein, Urine (Random) 21.2 mg/dL (<11.9); Protein:Creat Ratio 749 mg/g CRE (0-200)
== END ==
PROVIDERS: PCP Family Medicine; Visit Provider Internal Medicine Nephrology
DX: N18.30 Chronic kidney disease, stage 3 unspecified (principal)
CPT/HCPCS: 82570; 84156

== ENCOUNTER → 2020-06-20 10:57 | Outpatient (CLI) | payer OTHER, SELFPAY ==
[2020-06-03 19:00] VITALS: BMI 31.8
[2020-06-20 11:45] LABS: 24 Hour Urine Protein 423.2 mg/24HR (<150 MG/24HR); Albumin, Serum 3.2 g/dL (3.2-5.0); BUN 26 mg/dL (7-18); BUN/Creat Ratio 9.6 RATIO (10-20); Calcium,Total 9.3 mg/dL (8.5-10.1); Chloride 102 mmol/L (98-107); Creatinine, Serum 2.71 mg/dL (0.70-1.30); EST Glomerular Filtration Rate 28 mL/min (>60); Est Glom Filt Rate - Afr Amer 34 mL/min (>60); Glucose 95 mg/dL (74-106); Phosphorus 3.9 mg/dL (2.5-4.9); Potassium 4.7 mmol/L (3.5-5.1); Sodium Level 137 mmol/L (136-145); Urine Protein (24 Hour) 8.1 mg/dL (<11.9)
[2020-06-20 11:51] LABS: Creat.Clear Total Volume 5225 mL; Creatinine Clearance 58 ml/min (100-200); Creatinine Serum Creat 2.7 mg/dL (0.8-1.3); Creatinine Urine 43.5 mg/dL (NO RANGE EST.); EST Glomerular Filtration Rate 28 mL/min (>60); Est Glom Filt Rate - Afr Amer 34 mL/min (>60)
[2020-06-20 11:52] LABS: 24HR. UA Prot. Total Volume 5225 mL
== END ==
LOC: LABSPEC 10:59 → LAB 13:10
PROVIDERS: PCP Family Medicine; Referring Provider Internal Medicine Nephrology; Visit Provider Internal Medicine Nephrology
DX: N18.30 Chronic kidney disease, stage 3 unspecified (principal)
CPT/HCPCS: 36415; 80069; 81050; 82575; 84156

== ENCOUNTER → 2020-06-23 08:41 | Outpatient (CLI) | payer OTHER, SELFPAY ==
[2020-06-03 19:00] VITALS: BMI 31.8
--- NOTE | 2020-06-23 08:43 | RDU_ITS ---
Reason For Study: HTN Right Renal Artery Left Renal Artery Right renal artery ostium Left renal artery ostium 176.6/27.8 150.7/21.3 RSV/EDV. PSV/EDV. Right renal artery proximal Left renal artery proximal PSV/EDV 192.8/24.6 PSV/EDV. 234.8/37.5 . Right renal artery mid 162.2/35.2 Left renal artery mid 208.9/31 PSV/EDV. PSV/EDV . Right renal artery distal 170/35.2 Left renal artery distal 215.4/44.9 PSV/EDV. PSV/EDV. Right RAR 1.97. Left RAR 2.40. Right Renal Parenchyma Left Renal Parenchyma Upper Pole Medula 27/8.3 PSV/EDV. Left upper pole medulla 26/8.7 Right upper pole medulla EDR 0.31 . PSV/EDV . Right upper pole medulla R.I. Left upper pole medulla EDR 0.33 . 0.69 . Left upper pole medulla R.I. 0.67 . Upper [place] Cortx 17.4/7.5 PSV/EDV. UP Cortex 14.2/7.1 PSV/EDV. Right upper pole cortex EDR 0.43 . Left upper pole cortex EDR 0.50 . Right upper pole cortex R.I. 0.57 . Left upper pole cortex R.I. 0.50 . Right lower Pole medulla 24/9.7 Left lower Pole medulla 25.2/7.6 PSV/EDV . PSV/EDV . Right lower pole medulla EDR 0.40 . Left lower pole medulla EDR 0.30 . Right lower pole medulla R.I. Left lower pole medulla R.I. 0.70 . 0.60 . Lower Pole Cortx 19.2/7.6 PSV/EDV. Lower Pole Cortex 17.4/5.8 PSV/EDV. Left lower pole cortex EDR 0.40 . Right lower pole cortex EDR 0.34 . Left lower pole cortex R.I. 0.60 . Right lower pole cortex R.I. 0.66 . Left Renal Hilar Right Renal Hilar LT Hilar avg 35.1/8.7 PSV/EDV . Right Hilar avg 32.8/9.1 PSV/EDV. Left hilar acceleration time 50 Right hilar acceleration time 50 m/sec. m/sec. Left Renal Dimensions Right Renal Dimensions Left kidney size 9.53 cm . Right kidney size 9.3 cm . Left cortical dimension 1.43 cm . Right cortical dimension 1.08 cm . Aorta Proximal abdominal aorta 1.93 x 1.98 cm . Proximal abdominal aorta peak systolic velocity is 97.9 cm/sec . Distal abdominal aorta 1.91 x 1.91 cm . Distal abdominal aorta peak systolic velocity is 83.3 cm/sec . Interpretation Summary Right renal artery with <60% stenosis. Left renal artery >60% stenosis. Some evidence intrinsic disease. Ordering Physician: Marge Godinez Referring Physician: Tamir Ross Performed By: Ara Crum RVT
== END ==
PROVIDERS: PCP Family Medicine; Referring Provider Internal Medicine Nephrology; Visit Provider Internal Medicine Nephrology
DX: I10 Essential (primary) hypertension (principal)
CPT/HCPCS: 93975

== ENCOUNTER 2020-07-11 07:21 | Day surgery (SDC) | payer OTHER, SELFPAY ==
[2020-06-29 13:25] VITALS: BMI 29.9
[2020-07-04 14:25] LABS: Hematocrit 38.7 % (40-54); Hemoglobin 12.7 g/dL (13.0-16.5); Mean Corp Hgb Conc 32.8 g/dL (32-36); Mean Corpuscular Hgb 28.5 pg (27.0-32.0); Mean Corpuscular Volume 86.8 fL (80-94); Mean Platelet Vol. 11.2 fl (6.2-12.0); Platelet Count 277 K/mm3 (150-450); RBC Distribution Width CV 13.2 % (11.6-14.6); RBC Distribution Width SD 40.8 fl (35.1-43.9); Red Blood Count 4.46 M/mm3 (4.6-6.2); White Blood Count 8.9 K/mm3 (4.4-11.0)
[2020-07-04 14:44] LABS: Anion Gap 7 (5-15); BUN 25 mg/dL (7-18); Calcium,Total 9.4 mg/dL (8.5-10.1); Chloride 105 mmol/L (98-107); EST Glomerular Filtration Rate 31 mL/min (>60); Est Glom Filt Rate - Afr Amer 38 mL/min (>60); Glucose 85 mg/dL (74-106); Potassium 4.3 mmol/L (3.5-5.1); Sodium Level 142 mmol/L (136-145)
--- NOTE | 2020-07-11 09:02 | HP.PCM_ITS ---
Problem List (1) CKD (chronic kidney disease) stage 3, GFR 30-59 ml/min Status: Chronic Qualifiers: (2) Essential (primary) hypertension Status: Chronic History and Physical Date of Admission: 07/11/20 Intake Visit Reasons: RENOVASCULAR Chief Complaint: discuss renal artery stenosis [employer] Estate Listing Consultant Required: No Is patient in pain?: No Allergies No Known Allergies Allergy (Verified 06/29/20 13:25) Medications Amlodipine [Norvasc] 10 mg PO DAILY #30 tab 06/07/20 [Rx Confirmed 06/29/20] Atorvastatin Calcium [Lipitor] 40 mg PO QHS #30 tab 06/07/20 [Rx Confirmed 06/29/20] Hydralazine HCl 100 mg PO TID #90 tab 06/07/20 [Rx Confirmed 06/29/20] Metoprolol Tartrate [Lopressor (beta brandon)] 100 mg PO BID #60 tab 06/07/20 [Rx Confirmed 06/29/20] Pantoprazole Sodium [Protonix] 40 mg PO DAILY #30 tab 06/07/20 [Rx Confirmed 06/29/20] alprazolam 0.5 mg tablet 0.5 mg PO QHS PRN 06/29/20 [History Confirmed 06/29/20] clonidine HCl 0.1 mg tablet 0.1 mg PO TID 06/29/20 [History Confirmed 06/29/20] isosorbide dinitrate 20 mg tablet tablet PO 06/29/20 [History Confirmed 06/29/20] PFSH Medical History (Updated 06/29/20 @ 17:[address] Jonel Jennings MD) Essential (primary) hypertension (Chronic) CKD (chronic kidney disease) stage 3, GFR 30-59 ml/min (Chronic) GERD (gastroesophageal reflux disease) (Acute) High cholesterol (Acute) Surgical History History of left heart catheterization (Resolved 06/06/20) Social History (Updated 06/29/20 @ 17:[address] Jonel Jennings MD) Smoking Status: Never smoker alcohol intake: current alcohol intake frequency: holidays/special occasions only HPI HPI HPI: WILTON SOTO, is a 34 M who presents to the office today for surgical consultation regarding suspected renovascular hypertension. The patient is referred by Dr. Marge Godinez and a written copy of my surgical consult and recommendations will be returned to her as well as forwarded on to her his primary care physician Dr. Tamir Ross. The patient states that he was recently hospitalized at the [facility]. That was June 03, 2020. He claims that he presented because of abdominal pain. 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 He also underwent cardiac catheterization. My understanding is that the cardiac catheterization was uneventful. As of June 20, 2020 he had a serum creatinine of 2.7. He had a 24-hour urine creatinine clearance of 28 to 43. He is currently maintained in addition to his other medicines on clonidine and metoprolol and amlodipine and hydralazine and isosorbide dinitrate. He admits that he is known that he has had hypertension problems for period of time at least 2 years. He apparently was supposed to be on medication was not taking it. As best I can tell piecing the history together he had uncontrolled hypertension leading to renal dysfunction and malignant hypertension requiring admission. On June 23, 2020 he had a bilateral renal artery duplex exam. Less than 60% stenosis of the right renal artery. The left proximal renal artery had a peak systolic velocity of 234 cm/s flow. However the left renal artery to aortic ratio was 2.4. This was still interpreted as being greater than 60% stenosis. HPI HPI HPI: WLITON SOTO, is a 34 M who presents to the office today for ROS General General: Yes weight change and fatigue; no appetite, colon cancer, breast cancer or weakness HEENT HEENT: No difficulty swallowing, eye injury, eye surgery, swollen glands or hoarseness Endo Endocrine: No thyroid disease, diabetes mellitus, thyroid cancer, Hair loss, heat intolerance or cold intolerance Skin Skin: No rash or changing moles Breast Breast: No left breast lump, right breast lump, nipple discharge, breast pain, abnormal mammogram, abnormal US or breast enlargement Musc Musculoskeletal: No back problems, arthritis, rheumatoid arthritis, gout or joint pain Cardio Cardiovascular: Yes high blood pressure; no murmur, pacemaker, heart disease, atrial fibrillation, heart attack, heart stent, palpitations, shortness of breat with exertion or chest pain Psych Psychiatric: Yes anxiety; no depression or hearing voices Resp Respiratory: No shortness of breath, No sleep apnea, No cough, No COPD, No asthma, No emphysema, No wheezing Gastro Gastrointestinal: No abdominal pain, No nausea or vomiting, No diarrhea, No constipation, No blood in stool, No acid reflux, No hemorrhoids, No ulcers, No gallbladder problem, No black,tarry stools Fredrick Hematologic: No blood thinners, No blood disorders, No bleeding, No anemia, No blood clots Neuro Neurologic: No system reviewed and no additional complaints, except as docu, No as per HPI, No abnormal walking, No abnormal hearing, No abnormal movements, No abnormal speech, No behavioral changes, No burning sensations, No confusion, No seizure-like activity, No unsteadiness, No dizziness, No localized weakness, No frequent falls, No headache(s), No lack of coordination, No loss of vision, No memory loss, No numbness, No other visual disturbances, No radiating pain, No restless legs, No sensory deficit, No fainting, No tingling, No tremor(s), No weakness, No other Exam Const General: cooperative, comfortable, no acute distress Nutritional Appearance: average body habitus Orientation: alert, awake [facility] Head: normal to inspection Eyes General: appearance normal, both eyes and all related structures Chest Breast Palpation: No nipple discharge Resp Effort & Inspection: normal respiratory effort Auscultation: clear to auscultation bilaterally Cardio Rate: regular rate Rhythm: regular rhythm Heart Sounds: no murmurs GI Palpation: soft, no hepatosplenomegaly Auscultation: normal bowel sounds Other: No abdominal bruit noted Musc Cervical Spine: normal cervical lordosis Skin General: no rashes or lesions noted Neuro General: alert Cognition: normal cognition Extrem General: no calf tenderness Psych Affect: normal affect Assessment & Plan Problems 1. Essential (primary) hypertension I10 2. Stage 3b chronic kidney disease N18.32 Plan 34-year-old gentleman by history appears to have had uncontrolled hypertension likely etiologic to stage IIIb chronic renal failure. Patient appears to have close to 60% stenosis of the left renal artery. The right renal artery velocities are less than 60% stenosis but close. He did have a cardiac catheterization. After discussion of treatment options and the fact that he currently is on 5 different antihypertensives it seems reasonable to offer him a abdominal aortogram taking great care to minimize contrast load and provide preoperative protectant. I have discussed with him potential selective renal artery catheterization with then potential anticipated angioplasty and stenting. He is aware of the technique, benefit, risk and alternatives. He is aware is that there is no guarantees of success. He is aware that this will not improve or prolong his chronic renal insufficiency. The procedure would be done in hopes of identifying potential source aggravating his malignant hypertension. He has had an opportunity to ask and have questions answered. I would like to obtain the CT CAT scan results from imaging that he would have maintained at [place] approximately 5 years ago after a traumatic injury. That might help delineate his renal pole length at that time. Currently his right kidney size is 9.3 cm and the left kidney size 9.53 cm both small for an adult male. This may further suggest that he has clinically significant renovascular disease. We will proceed as noted. Appreciate the opportunity of assisting with his surgical care. Copy: Dr. Marge Godinez and Dr. Tamir Jennings M.D., F.A.C.S. Coding Level of Care Code 52825 Diagnoses Essential (primary) hypertension I10 Stage 3b chronic kidney disease N18.32 ??Chronic kidney disease stage 3 subtype: stage 3b (GFR 30-44) Pt reviewed and no changes. Jonel Jennings MD Procedure Criteria Procedure Type: Elective COVID Risk Discussion: The surgeon/proceduralist and patient have discussed in detail the risk of exposure to and/or potential harm posed by the COVID-19 virus with having a surgery/procedure at this time versus the risk of delaying the surgery/procedure. It is not possible to know either the risk of delaying the surgery or procedure or chance of getting an infection with perfect accuracy, but a joint decision was made between the patient and the surgeon/proceduralist to proceed at this time with the scheduled surgery/procedure as indicated on the consent form.
--- NOTE | 2020-07-11 09:48 | PCM.OPRPT ---
Problem List (1) CKD (chronic kidney disease) stage 3, GFR 30-59 ml/min Status: Chronic Qualifiers: (2) Essential (primary) hypertension Status: Chronic Report of Operation Date of Procedure: 07/11/20 Pre-Operative Diagnosis: Malignant hypertension Post-Operative Diagnosis: No hemodynamically significant renal artery stenosis Surgery/Procedure Performed:: Abdominal aortogram with bilateral selective renal artery images Description of Surgical Findings:: Timeout and informed consent was obtained. 34-year-old gent was taken to the special procedure lab placed on the table. Bilateral groins were sterilely prepped and draped. He received 50 mcg of fentanyl and 2 mg of Versed is intravenous sedation. Under ultrasound guidance the right common femoral artery was identified. 2% lidocaine was instilled as a local anesthetic. A total of 8 cc was used. Under ultrasound guidance a micropuncture needle was inserted in the right common femoral artery micropuncture wire micropuncture sheath an 035 J-wire was used to place a 6 Nigerian 23 cm sheath. Then I used an 035 angled Glidewire and a universal flush catheter using 20 cc a second of 10 cc of diluted contrast. An aortogram was obtained. This demonstrated significant overlay of the superior mesenteric artery. Some mild right renal artery stenosis. Tortuosity of the left renal artery. So a initially a 30 degree SHIPMAN oblique view was obtained. I obtained another image of the aorta 20 cc a second for 8 cc of contrast. I then used a 0 SOS to selectively engage the left renal artery. 2 hand injections performed. I then again used ligating and Glidewire and the reverse curve catheter gain access to the right renal artery got selected images. Throughout the procedure total of 22 cc of actual contrast given. He tolerated the procedure well. The catheter was removed over a wire. The sheath was removed and a shorter 6 Nigerian sheath placed. Then a 6 Nigerian Mynx device was inserted. Hemostasis was achieved. The right foot was inspected. Good 3+ right DP and PT pulses. No apparent complication he tolerated procedure well Images demonstrate mild 20% stenosis of the proximal right renal artery. There is tortuosity slightly of the left renal artery and no hemodynamically significant stenosis of the left renal artery. The aorta is otherwise patent at the infrarenal level with patent bilateral common iliac arteries. Jonel Jennings M.D., F.A.C.S. Type of Anesthesia:: IV Sedation, Local
== END 2020-07-11 13:40 | disposition home or self-care (01) ==
LOC: CLSP 07:22
PROVIDERS: PCP Family Medicine; Referring Provider Surgery; Visit Provider Surgery
DX: I12.9 Hypertensive chronic kidney disease with stage 1 through stage 4 chronic kidney disease, or unspecified chronic kidney disease (principal); N18.32 Chronic kidney disease, stage 3b; E78.00 Pure hypercholesterolemia, unspecified; K21.9 Gastro-esophageal reflux disease without esophagitis; Z79.899 Other long term (current) drug therapy; I70.1 Atherosclerosis of renal artery
CPT/HCPCS: 36252; 36415; 76937; 80048; 85027; 99152; 99153; C1760; Q9967; C1769; C1887

== ENCOUNTER → 2020-09-21 15:20 | Outpatient (CLI) | payer OTHER, SELFPAY ==
[2020-06-29 13:25] VITALS: BMI 29.9
[2020-09-21 17:10] LABS: Albumin, Serum 3.9 g/dL (3.2-5.0); BUN 27 mg/dL (7-18); BUN/Creat Ratio 10.4 RATIO (10-20); Calcium,Total 9.1 mg/dL (8.5-10.1); Chloride 106 mmol/L (98-107); Creatinine, Serum 2.59 mg/dL (0.70-1.30); EST Glomerular Filtration Rate 30 mL/min (>60); Est Glom Filt Rate - Afr Amer 36 mL/min (>60); Glucose 81 mg/dL (74-106); Phosphorus 2.9 mg/dL (2.5-4.9); Potassium 3.9 mmol/L (3.5-5.1); Sodium Level 140 mmol/L (136-145)
== END ==
PROVIDERS: PCP Family Medicine; Referring Provider Internal Medicine Nephrology; Visit Provider Internal Medicine Nephrology
DX: N18.30 Chronic kidney disease, stage 3 unspecified (principal)
CPT/HCPCS: 36415; 80069

== ENCOUNTER → 2021-01-03 11:15 | Outpatient (CLI) | payer OTHER, SELFPAY ==
[2020-06-29 13:25] VITALS: BMI 29.9
[2021-01-03 11:46] LABS: Hematocrit 43.7 % (40-54); Hemoglobin 14.8 g/dL (13.0-16.5); Mean Corp Hgb Conc 33.9 g/dL (32-36); Mean Corpuscular Hgb 28.7 pg (27.0-32.0); Mean Corpuscular Volume 84.7 fL (80-94); Mean Platelet Vol. 10.7 fl (6.2-12.0); Platelet Count 236 K/mm3 (150-450); RBC Distribution Width CV 13.4 % (11.6-14.6); RBC Distribution Width SD 41.7 fl (35.1-43.9); Red Blood Count 5.16 M/mm3 (4.6-6.2); White Blood Count 7.9 K/mm3 (4.4-11.0)
[2021-01-03 11:55] LABS: Protein, Urine (Random) 27.4 mg/dL (<11.9); Protein:Creat Ratio 451 mg/g CRE (0-200)
[2021-01-03 12:12] LABS: PTHIN 66.7 pg/mL (18.4-80.1)
[2021-01-03 12:16] LABS: Albumin, Serum 3.8 g/dL (3.2-5.0); BUN 18 mg/dL (7-18); Chloride 108 mmol/L (98-107); Creatinine, Serum 2.26 mg/dL (0.70-1.30); EST Glomerular Filtration Rate 35 mL/min (>60); Est Glom Filt Rate - Afr Amer 42 mL/min (>60); Glucose 96 mg/dL (74-106); Phosphorus 3.4 mg/dL (2.5-4.9); Potassium 3.9 mmol/L (3.5-5.1); Sodium Level 141 mmol/L (136-145)
== END ==
PROVIDERS: PCP Family Medicine; Referring Provider Internal Medicine Nephrology; Visit Provider Internal Medicine Nephrology
DX: I12.9 Hypertensive chronic kidney disease with stage 1 through stage 4 chronic kidney disease, or unspecified chronic kidney disease (principal); N18.31 Chronic kidney disease, stage 3a
CPT/HCPCS: 36415; 80069; 82570; 83970; 84156; 85027

== ENCOUNTER 2021-06-06 10:40 | Outpatient (CLI) | payer OTHER, SELFPAY ==
[2021-06-06 11:26] LABS: Protein, Urine (Random) 95.5 mg/dL (<11.9); Protein:Creat Ratio 946 mg/g CRE (0-200)
[2021-06-06 11:45] LABS: Albumin, Serum 3.6 g/dL (3.2-5.0); BUN 18 mg/dL (7-18); BUN/Creat Ratio 8.8 RATIO (10-20); Calcium,Total 8.8 mg/dL (8.5-10.1); Chloride 105 mmol/L (98-107); Creatinine, Serum 2.04 mg/dL (0.70-1.30); EST Glomerular Filtration Rate 39 mL/min (>60); Est Glom Filt Rate - Afr Amer 47 mL/min (>60); Glucose 96 mg/dL (74-106); Potassium 3.9 mmol/L (3.5-5.1); Sodium Level 141 mmol/L (136-145)
== END 2021-06-06 23:59 | disposition home or self-care (01) ==
LOC: LAB 10:42
PROVIDERS: PCP Family Medicine; Referring Provider Internal Medicine Nephrology; Visit Provider Internal Medicine Nephrology
DX: N18.31 Chronic kidney disease, stage 3a (principal)
CPT/HCPCS: 36415; 80069; 82570; 84156

== ENCOUNTER 2021-07-18 11:30 | Outpatient (CLI) | payer OTHER, SELFPAY ==
[2021-07-18 13:05] LABS: Anion Gap 4 (5-15); BUN 19 mg/dL (7-18); BUN/Creat Ratio 8.3 RATIO (10-20); Calcium,Total 9.2 mg/dL (8.5-10.1); Chloride 110 mmol/L (98-107); Creatinine, Serum 2.28 mg/dL (0.70-1.30); EST Glomerular Filtration Rate 34 mL/min (>60); Est Glom Filt Rate - Afr Amer 42 mL/min (>60); Glucose 116 mg/dL (74-106); Sodium Level 139 mmol/L (136-145)
== END 2021-07-18 23:59 | disposition home or self-care (01) ==
LOC: LAB 11:32
PROVIDERS: PCP Family Medicine; Visit Provider Internal Medicine Nephrology
DX: N18.31 Chronic kidney disease, stage 3a (principal); R80.9 Proteinuria, unspecified
CPT/HCPCS: 36415; 80048

== ENCOUNTER → 2021-09-19 | Outpatient (CLI) | payer OTHER, SELFPAY ==
[2021-09-19 09:34] LABS: Protein, Urine (Random) 18.6 mg/dL (<11.9); Protein:Creat Ratio 560 mg/g CRE (0-200)
[2021-09-19 10:10] LABS: Albumin, Serum 4.1 g/dL (3.2-5.0); BUN 22 mg/dL (7-18); BUN/Creat Ratio 9.4 RATIO (10-20); Calcium,Total 9.5 mg/dL (8.5-10.1); Chloride 107 mmol/L (98-107); Cholesterol 139 mg/dL (200); Creatinine, Serum 2.34 mg/dL (0.70-1.30); EST Glomerular Filtration Rate 33 mL/min (>60); Est Glom Filt Rate - Afr Amer 40 mL/min (>60); Glucose 95 mg/dL (74-106); High Density Lipoprotein 46 mg/dL; Phosphorus 2.4 mg/dL (2.5-4.9); Sodium Level 140 mmol/L (136-145); Triglycerides 121 mg/dL; Very Low Density Lipoprotein 24 mg/dL (5-40)
== END | disposition home or self-care (01) ==
LOC: LAB 08:29
PROVIDERS: PCP Family Medicine; Referring Provider Internal Medicine Nephrology; Visit Provider Internal Medicine Nephrology
DX: I10 Essential (primary) hypertension (principal)
CPT/HCPCS: 36415; 80061; 80069; 82570; 84156

== ENCOUNTER → 2022-02-07 | Outpatient (CLI) | payer OTHER, SELFPAY ==
[2022-02-07 11:04] LABS: Protein, Urine (Random) < 6.0 mg/dL (<11.9); Protein:Creat Ratio 383 mg/g CRE (0-200)
[2022-02-07 11:20] LABS: Albumin, Serum 3.7 g/dL (3.2-5.0); BUN 21 mg/dL (7-18); BUN/Creat Ratio 9.8 RATIO (10-20); Calcium,Total 9.1 mg/dL (8.5-10.1); Chloride 105 mmol/L (98-107); Creatinine, Serum 2.15 mg/dL (0.70-1.30); EST Glomerular Filtration Rate 37 mL/min (>60); Est Glom Filt Rate - Afr Amer 44 mL/min (>60); Glucose 94 mg/dL (74-106); Phosphorus 2.9 mg/dL (2.5-4.9); Potassium 4.1 mmol/L (3.5-5.1); Sodium Level 138 mmol/L (136-145)
== END | disposition home or self-care (01) ==
LOC: LAB 10:23
PROVIDERS: PCP Family Medicine; Referring Provider Internal Medicine Nephrology; Visit Provider Internal Medicine Nephrology
DX: N18.31 Chronic kidney disease, stage 3a (principal)
CPT/HCPCS: 36415; 80069; 82570; 84156

== ENCOUNTER → 2022-06-16 | Outpatient (CLI) | payer OTHER, SELFPAY ==
--- NOTE | 2022-06-16 10:03 | US_ITS ---
INDICATION: BACKACHE EXAMINATION: Ultrasound US Kidney(s) complete (eg, kidneys and bladder) TECHNIQUE: Bazzi scale and color doppler images were obtained of the kidneys. COMPARISON: None. FINDINGS: RIGHT KIDNEY: 11.0 x 5.3 x 1.8 cm. The cortex is 13 mm. There is no hydronephrosis. No shadowing calculus, focal lesion or perinephric collection is demonstrated. LEFT KIDNEY: 11.1 x 5.3 x 5.8 cm. The cortex is 21 mm. There is no hydronephrosis. No shadowing calculus, focal lesion or perinephric collection is demonstrated. URINARY BLADDER: The urinary bladder has a volume of 462 cc. Mild wall thickening measuring 4 mm. Left ureteral jet is noted. US/Kidney and Bladder IMPRESSION: Mild wall thickening of the urinary bladder. Electronically Signed: Travon Parker DO at 22:50 EST Reading Location ID and State: [facility] / [place] Tel [phone], Service support ,
== END | disposition home or self-care (01) ==
LOC: US 10:02
PROVIDERS: PCP Family Medicine; Visit Provider Internal Medicine Nephrology
DX: M54.9 Dorsalgia, unspecified (principal)
CPT/HCPCS: 76770

== ENCOUNTER → 2022-10-24 | Outpatient (CLI) | payer OTHER, SELFPAY ==
[2022-10-24 10:38] LABS: Albumin, Serum 3.6 g/dL (3.2-5.0); BUN 21 mg/dL (7-18); BUN/Creat Ratio 10.2 RATIO (10-20); Calcium,Total 9.5 mg/dL (8.5-10.1); Chloride 103 mmol/L (98-107); Creatinine, Serum 2.05 mg/dL (0.70-1.30); EST Glomerular Filtration Rate 39 mL/min (>60); Est Glom Filt Rate - Afr Amer 47 mL/min (>60); Glucose 92 mg/dL (74-106); Phosphorus 2.6 mg/dL (2.5-4.9); Potassium 3.8 mmol/L (3.5-5.1); Sodium Level 138 mmol/L (136-145)
[2022-10-24 10:41] LABS: Protein, Urine (Random) 135.9 mg/dL (<11.9); Protein:Creat Ratio 2107 mg/g CRE (0-200)
== END | disposition home or self-care (01) ==
LOC: LAB 09:40
PROVIDERS: PCP Family Medicine; Referring Provider Internal Medicine Nephrology; Visit Provider Internal Medicine Nephrology
DX: I15.0 Renovascular hypertension (principal); N18.31 Chronic kidney disease, stage 3a
CPT/HCPCS: 36415; 80069; 82570; 84156

== ENCOUNTER → 2023-01-04 | Outpatient (CLI) | payer OTHER, SELFPAY ==
[2023-01-04 10:20] LABS: 24HR. UA Prot. Total Volume 3200 mL; Creat.Clear Total Volume 3200 mL; Creatinine Clearance 73 ml/min (100-200); Creatinine Serum Creat 2.2 mg/dL (0.8-1.3); Creatinine Urine 70.5 mg/dL (NO RANGE EST.); EST Glomerular Filtration Rate 36 mL/min (>60); Est Glom Filt Rate - Afr Amer 44 mL/min (>60)
[2023-01-04 10:22] LABS: Albumin, Serum 3.7 g/dL (3.2-5.0); BUN 20 mg/dL (7-18); BUN/Creat Ratio 9.3 RATIO (10-20); Calcium,Total 9.3 mg/dL (8.5-10.1); Chloride 110 mmol/L (98-107); Cholesterol 155 mg/dL (200); Creatinine, Serum 2.16 mg/dL (0.70-1.30); EST Glomerular Filtration Rate 36 mL/min (>60); Est Glom Filt Rate - Afr Amer 44 mL/min (>60); Glucose 104 mg/dL (74-106); High Density Lipoprotein 59 mg/dL; Phosphorus 3.1 mg/dL (2.5-4.9); Potassium 4.3 mmol/L (3.5-5.1); Sodium Level 141 mmol/L (136-145); Triglycerides 88 mg/dL; Very Low Density Lipoprotein 18 mg/dL (5-40)
== END | disposition home or self-care (01) ==
LOC: LAB 09:25
PROVIDERS: PCP Family Medicine; Referring Provider Internal Medicine Nephrology; Visit Provider Internal Medicine Nephrology
DX: I12.9 Hypertensive chronic kidney disease with stage 1 through stage 4 chronic kidney disease, or unspecified chronic kidney disease (principal); N18.31 Chronic kidney disease, stage 3a; R80.9 Proteinuria, unspecified
CPT/HCPCS: 36415; 80061; 80069; 81050; 82575; 84156

== ENCOUNTER → 2023-04-04 | Outpatient (CLI) | payer OTHER, SELFPAY ==
[2023-04-04 16:05] LABS: Anion Gap 8 (5-15); BUN 24 mg/dL (7-18); BUN/Creat Ratio 10.8 RATIO (10-20); Calcium,Total 9.3 mg/dL (8.5-10.1); Chloride 109 mmol/L (98-107); Creatinine, Serum 2.22 mg/dL (0.70-1.30); EST Glomerular Filtration Rate 35 mL/min (>60); Est Glom Filt Rate - Afr Amer 43 mL/min (>60); Glucose 91 mg/dL (74-106); Potassium 4.3 mmol/L (3.5-5.1); Sodium Level 142 mmol/L (136-145); Thyroid Stim Hormone (TSH) 1.69 uIU/mL (0.358-3.74)
== END | disposition home or self-care (01) ==
LOC: MFPLAB 11:44
PROVIDERS: PCP Family Medicine; Visit Provider Family Medicine
DX: R41.3 Other amnesia (principal)
CPT/HCPCS: 36415; 80048; 84443

== ENCOUNTER → 2023-04-20 | Outpatient (CLI) | payer OTHER, SELFPAY ==
--- NOTE | 2023-04-20 09:00 | CT_ITS ---
STUDY: CT BRAIN WITHOUT CONTRAST REASON FOR EXAM: Male, 37 years old. change in mental status RADIATION DOSAGE (If Supplied By Facility): CTDIvol = ( 44.99 ) mGy, DLP = ( 846.73 ) mGycm TECHNIQUE: Transaxial CT imaging of the brain was performed without administration of intravenous contrast material. Individualized dose optimization techniques were used for this CT. COMPARISON: No relevant priors. FINDINGS: Normal soft tissue structures. Normal calvarium. Normal size ventricles and extra-axial spaces for the patient''s age. Normal white matter tracts of the cerebral hemispheres. Normal basal ganglia and thalami. Normal brainstem. Normal cerebellum. There is no intracranial hemorrhage. There are no findings of an acute ischemic infarction. Normal visualized paranasal sinuses. CT/Brain/Head without Contrast IMPRESSION: Normal unenhanced CT scan of the brain. Electronically Signed: Tavo Kwok MD at 22:10 EST ,
--- OUTSIDE RECORDS SUMMARY | 2023-04-20 09:18 | XMS RPT_ITS | CCD ---
Author Name Unknown Address [address] [place] [address] Organization [facility] Care Team Providers Care Mortgage Manager Name Role Phone Dereje Mai Unavailable Unavailable Dereje Mai Unavailable Unavailable No Doctor Assigned, Nodr Unavailable Unavail able No, Physician Primary Care Provider Unavailabl e NO, PHYSICIAN Primary Care Unavailable ROE MANN Attending Unavailable Medications Completed/Discontinued Medications Medication Drug Class(es) Dates Sig (Normalized) Sig (Original) 2 ml famotidine 10 mg/ml injection (1 source) Histamine-2 Receptor Antagonist Start: 06-03-2020 End: 06-03-2020 famotidine (PEPCID) injection 20 mg 1 ml hydrALAZINE hydrochloride 20 mg/ml injection (1 source) Arteriolar Vasodilator Start: 06-03-2020 End: 06-03-2020 hydrALAZINE (APRESOLINE) injection 10 mg 1 ml HYDROmorphone hydrochloride 1 mg/ml injection (2 sources) Opioid Agonist Start: 06-03-2020 End: 06-03-2020 HYDROmorphone (DILAUDID) injection 0.5 mg 1 ml morphine sulfate 2 mg/ml cartridge (2 sources) Opioid Agonist Start: 06-03-2020 End: 06-03-2020 morphine injection 2 mg nitroglycerin 0.02 mg/mg topical ointment (1 source) Nitrate Vasodilator Start: 06-03-2020 End: 06-03-2020 nitroGLYCERIN (NITRO-BID) 2 % ointment 0.5 inch 2 ml ondansetron 2 mg/ml injection (2 sources) Serotonin-3 Receptor Antagonist Start: 06-03-2020 End: 06-03-2020 ondansetron (ZOFRAN) injection 4 mg 1000 ml sodium chloride 9 mg/ml injection (4 sources) Start: 06-03-2020 End: 06-03-2020 sodium chloride 0.9% (NS) Problems Problem Classification Problem Date Documented Da te Episodic/Chronic Abdominal pain (1 source) Epigastric pain; Translations: [Epigastric pain] Episodic Acute and unspecified renal failure (1 source) Acute injury of kidney; Translations: [Acute kidney injury (HCC)] Biliary tract disease (1 source) Gallstone; Translations: [Gallstones] Episodic Hypertension with complications and secondary hypertension (1 source) Hypertensive urgency ; Translations: [Hypertensive urgency] Chronic Intestinal obstruction without hernia (1 source) Partial obstruction of small bowel; Translations: [Partial small bowel obstruction (HCC)] Episodic Other screening for suspected conditions (not mental disorders or infectious disease) (1 source) Electrocardiogram abnormal; Translations: [Abnormal EKG] Episodic Results Test Name Value Interpretation Reference Range Facil ity Vital Signs Date Time Vital Sign Value Performing Clinician Tonya salomon 06-03-2020 18:00-0500 Body Temperature 98.71 [degF] Roe Mann [facility] 06-03-2020 18:00-0500 BP Diastolic 115 mm[Hg] Roe Andi [facility] 06-03-2020 18:00-0500 BP Systolic 185 mm[Hg] Roe Mann [facility] 06-03-2020 18:00-0500 Pulse (Heart Rate) 88 /min Roe nAdi [facility] 06-03-2020 18:00-0500 Pulse Oximetry 94 % [facility] 06-03-2020 18:00-0500 Respiratory Rate 16 /min Roe Mann [facility] 06-03-2020 11:34-0500 BMI (Body Mass Index) 30 kg/m2 Roe Mann [facility] 06-03-2020 11:34-0500 Body weight 108.86 kg Roe Mann [facility] 06-03-2020 11:34-0500 Height 190.5 cm Roe Mann [facility] Encounters Encounter Date Encounter Type Care Provider Facility Start: 06-03-2020 End: 06-03-2020 Emergency department patient visit PHYSICIAN [facility] Start: 06-03-2020 End: 06-03-2020 Emergency department patient visit Roe Mann Work Phone: [facility] Procedures Date Procedure Procedure Detail Performing Clinician Start: 06-03-2020 Radiography of psditb-qjezrb-cijfgyz Roe Mann Work Phone: Start: 06-03-2020 COVID-19, MOLECULAR Zeferino n Jose Mann Work Phone: Start: 06-03-2020 Lipase [Enzymatic activity/volume] in Serum or Plasma Roe Mann Work Phone: Start: 06-03-2020 Urnls dip stick/tabl et rgnt auto w/o microscopy Roe Mann Work Phone: Start: 06-03-2020 Ct abdomen & pelvis w/o contrast material Roe Mann Work Phone: Start: 06-03-2020 Assay of troponin quantitative Roe Mann Work Phone: Start: 06-03-2020 End: 06-03-2020 12 lead ECG Roe Mann Work Phone: Start: 06-03-2020 Radiologic exam ches t single view Roe Garcia Mann Work Phone: Start: 06-03-2020 Basic metabolic pane l calcium ionized Roe Mann Work Phone: Start: 06-03-2020 End: 06-03-2020 Albumin serum plasma/whole blood Roe Mann Work Phone: Start: 06-03-2020 Blood count complete auto&auto difrntl wbc Roe Mann Work Phone: Plan of Treatment Date Care Activity Detail Author Start: 12-15-2019 Influenza vaccination given Se quential Influenza Vaccine (#1) [facility] Start: 10-15-2001 Hepatitis C antibody , confirmatory test Hepatitis C Screening [facility] Start: 1999 COVID-19 Vaccine (1 of 2) COVID-19 V accine (1 of 2) [facility] Start: 10-15-1998 HIV screening HIV Screening [facility] Start: 1995 Adolescent depressio n screening assessment Depression Screening (PHQ9) [facility] Start: 10-15-1986 History and physical examination, annual for health maintenance Wellness Visit [facility] Start: 1983 Tetanus vaccination Tetanus: Every 1 0yrs [facility] Radiography of gicsnk-fdjirw-jlygowd XR Abdomen AP Imaging STAT 06/03/2020 4:24 PM EST [facility] Payers Date Payer Category Payer Unknown [employer] PPO [id number] 2019-Present [id number] 2019 Unknown [id number] 2017 Private Health Insurance 1983 Unknown [id number] Social History Date Type Detail Facility Start: 06-03-2020 Tobacco smoking status NHIS Never sm oker [facility] Start: 06-03-2020 Tobacco use and exposure Never used [facility] Start: 06-03-2020 Alcohol intake Lifetime non-d esther (finding) [facility] Start: 06-03-2020 History SDOH Alcohol Frequency 1 [facility] Sex Assigned At Not on file [facility] Exposure to SARS-CoV -2 (event) Not sure [facility] Summary Purpose Family History No Family History Records FoundNo Family History Records Found Advance Directives No Advanced Directives Records FoundDocuments on File Type Date Recorded Patient Leave Coordinator Expl anation Advance Directives and Livin g Will 06/03/2020 12:16 PM Discharge Instructions * Instructions* Arianna Moya RN - 06/03/2020 Connecting with a Primary Care Provider or Family Doctor is important for your continued health. Please visit [email or web address] and search for a Primary Care provider near your address. Many offer online scheduling to help connect you to a provider. You may also call [phone], or , choose option 1 and speak to our environmental marketing representative to schedule with a provider. [facility] ([facility]) - the providers at this clinic will also be able to help you connect to a new Primary Care Provider. [address] [place] [address], [phone] Saturday through Saturday 9am to 7pm We notice that you may not have a Primary Care Provider. Here is a list of PCP that are in the yourarea. Please call and make an appointment. Rajan Lee MD [facility] [address] [place] [place] [address] P: Chance Benton MD [facility] [address] [place] [address] Get Directions P: [phone] Rashad Mcmahon MD [facility] [address] [place] [address] P: [phone] documented in this encounter Assessments Diagnosis Acute kidney injury (HCC)- Primary Gallstones Calculus of gallbladder without mention of cholecystitis or obstruction Partial small bowel obstruction (HCC) Unspecified intestinal obstruction Epigastric pain Abdominal pain, epigastric Abnormal EKG Nonspecific abnormal electrocardiogram (ECG) (EKG) Hypertensive urgency Additional Source Comments (unrecognized sect ion and content) No Status Records FoundNo Status Records Found INFORMATION SOURCE (unrecogn ized section and content) DATE CREATED AUTHOR AUTHOR'S ORGANIZ ATION 06/08/2020 [facility] Reason for Visit (unrecogniz ed section and content) Roe Mann MD - 06/03/2020 11:47 AM Anabella Valdez CNP - 06/03/2020 11:32 AM EST ED Notes (unrecognized secti on and content) Associated Order(s): ECG 12 Lead; EKG 12-lead [facility] Physician Note: NAME: Wilton Soto 34 y.o. CSN: [id number] PCP: Physician No ED Course / Medical Decision Making: Patient's EKG shows a strain pattern anterior leads V1 through V3 T wave inversion V5 V6 and inferior leads III and aVF. Do not have an old EKG to compare this with. Patient second EKG shows the same there is no progression of these changes. He has mid abdominal pain but no chest pain or chest pressure. His troponin is negative. There is no clinical signs of pulmonary embolism.. He does have hypertensive urgency. He was given pain medication and Nitropaste which did not improve his blood pressure. He was given hydralazine which improved his blood pressure. He does have elevated creatinine. I do not have an old creatinine to compare with so I do not know if this is old or new. Patient does have a history of hypertension and he stopped his blood pressure medication on his own. CT of the abdomen shows gallstones but no signs of choledocholithiasis or cholecystitis. Liver function test and pancreatic enzymes are normal. CT abdomen pelvis without contrast shows thickening of the small bowel loops within the left upper quadrant and associated dilation to 3.8 cm and edema in the adjacent mesentery. Consider infectious enteritis and inflammatory bowel. Partial early small bowel obstruction is considered. Patient has a mild elevation of white count. Abdominal exam is tender mid abdomen no rebound guarding or peritoneal signs. No signs of acute abdomen. No signs of sepsis or bacteremia. chest x-ray is clear there is no infiltrate or congestion. I feel patient does need to be admitted to the hospital for further evaluation and hydration. Patient wanted to go to [facility]. I called them and they had their physician call me back. I talked with a doctor sowmya at 2 PM[address] She wanted the CT scan faxed to her. She will call me back when she reviews the CT scan herself. Dr. Jin called back at 3:12 PM and she discussed case with surgeon. They were fine with transfer. They wanted a NG to place to intermittent low wall suction prior to transfer. Patient was in agreement with NG tube placement. Transport arrived at 5:44 PM. Patient remained stable throughout ER course. Patient's blood pressure did come down. Patient at no time had any chest pain or pressure MDM Number of Diagnoses or Management Options Abnormal EKG: new, needed workup Acute kidney injury (HCC): new, needed workup Epigastric pain: new, needed workup Gallstones: new, needed workup Hypertensive urgency: new, needed workup Partial small bowel obstruction (HCC): new, needed workup Amount and/or Complexity of Data Reviewed Clinical lab tests: ordered Tests in the radiology section of CPT : ordered Discussion of test results with the performing providers: yes Review and summarize past medical records: yes Discuss the patient with other providers: yes Independent visualization of images, tracings, or specimens: yes Risk of Complications, Morbidity, and/or Mortality Presenting problems: high Diagnostic procedures: high Management options: high Patient Progress Patient progress: improved Clinical Impression: 1. Acute kidney injury (HCC) 2. Gallstones 3. Partial small bowel obstruction (HCC) 4. Epigastric pain 5. Abnormal EKG 6. Hypertensive urgency Disposition: Patient is being transfered to [facility]. History: Chief Complaint: Abdominal Pain HPI: The history was obtained from the patient and spouse. He is a 34 y.o. male who presents with a chief complaint of Abdominal Pain. HPI Patient comes in with acute abdominal pain. Mid to epigastric region that some times does to back. It is dull pain. He admits to nausea and constipation. Last BM today but had to strain. He denies blood in stool or dark stool. He has occasional SOB when pain gets bad. He denies CP or cough. He denies fall or injury. He has no had these symptoms in past. He denies fever chills or urinary symptoms. Patient states he has a history of hypertension in the past and was on medication 2 years ago. He said he lost a lot of weight and decided to stop his blood pressure medication on his own. He never had his blood pressure rechecked PMHx: History reviewed. No pertinent past medical history. PMSx: History reviewed. No pertinent surgical history. FAM. Hx: History reviewed. No pertinent family history. SOC. Hx: Social History Socioeconomic History Marital status: Spouse name: Not on file Number of children: Not on file Years of education: Not on file Highest education level: Not on file Occupational History Not on file Social Needs Financial resource strain: Not on file Food insecurity Worry: Not on file Inability: Not on file Transportation needs Medical: Not on file Non-medical: Not on file Tobacco Use Smoking status: Never Smoker Smokeless tobacco: Never Used Substance and Sexual Activity Alcohol use: Never Frequency: Never Drug use: Never Sexual activity: Not on file Lifestyle Physical activity Days per week: Not on file Minutes per session: Not on file Stress: Not on file Relationships Social connections Talks on phone: Not on file Gets together: Not on file Attends episcopalian service: Not on file Active member of club or organization: Not on file Attends meetings of clubs or organizations: Not on file Relationship status: Not on file Other Topics Concern Not on file Social History Narrative Not on file MEDs: No current outpatient medications on file prior to encounter. ALL: No Known Allergies ROS: Review of Systems Constitutional: Negative. HENT: Negative. Eyes: Negative. Respiratory: Positive for shortness of breath. Negative for apnea, cough, choking, chest tightness, wheezing and stridor. Cardiovascular: Negative. Gastrointestinal: Positive for abdominal pain, constipation and nausea. Negative for abdominal distention, anal bleeding, blood in stool, diarrhea and rectal pain. Endocrine: Negative. Genitourinary: Negative. Musculoskeletal: Negative. Skin: Negative. Allergic/Immunologic: Negative. Neurological: Negative. Hematological: Negative. All other systems reviewed and are negative. Positives and pertinent negatives as per HPI. All other systems were reviewed and are negative. Physical Exam: Patient Vitals for the past 24 hrs: BP Temp Temp src Pulse Resp SpO2 Height Weight 06/03/20 1700 (!) 169/99 88 16 95 % 06/03/20 1645 (!) 149/98 69 16 95 % 06/03/20 1628 (!) 156/106 98.7 F (37.1 C) Oral 82 16 100 % 06/03/20 1500 (!) 202/125 97 (!) 19 97 % 06/03/20 1431 (!) 191/119 93 17 100 % 06/03/20 1344 (!) 206/132 86 18 97 % 06/03/20 1315 (!) 201/134 91 (!) 19 98 % 06/03/20 1304 (!) 217/135 86 18 96 % 06/03/20 1203 (!) 227/149 91 18 97 % 06/03/20 1134 (!) 202/154 98.1 F (36.7 C) Oral 86 18 98 % 6' 3 108.9 kg (240 lb) Physical Exam Vitals signs and nursing note reviewed. Constitutional: Appearance: He is well-developed. HENT: Head: Normocephalic. Right Ear: External ear normal. Left Ear: External ear normal. Nose: Nose normal. Mouth/Throat: Mouth: Mucous membranes are dry. Pharynx: No pharyngeal swelling, oropharyngeal exudate or posterior oropharyngeal erythema. Neck: Musculoskeletal: Neck supple. No neck rigidity. Cardiovascular: Rate and Rhythm: Normal rate and regular rhythm. Pulses: Normal pulses. Heart sounds: Normal heart sounds. No murmur. No friction rub. No gallop. Pulmonary: Effort: Pulmonary effort is normal. No respiratory distress. Breath sounds: Normal breath sounds. No stridor. No wheezing, rhonchi or rales. Chest: Chest wall: No tenderness. Abdominal: General: Abdomen is flat. There is no distension. Palpations: Abdomen is soft. There is no mass. Tenderness: There is abdominal tenderness. There is no right CVA tenderness, left CVA tenderness, guarding or rebound. Hernia: No hernia is present. Musculoskeletal: General: No swelling. Skin: Findings: No rash. Neurological: General: No focal deficit present. Mental Status: He is alert and oriented to person, place, and time. Cranial Nerves: No cranial nerve deficit. Sensory: No sensory deficit. Motor: No weakness. Laboratory & Radiological Imaging (if done): Labs Reviewed POC CBC AND DIFFERENTIAL - Abnormal; Notable for the following components: Result Value WBC 12.03 (*) Neutrophils Abs 7.92 (*) Monocytes Abs 1.37 (*) Eosinophils Abs 0.60 (*) All other components within normal limits POC BASIC METABOLIC PANEL - RALS - Abnormal; Notable for the following components: Glucose 109 (*) Creatinine 2.34 (*) GFR 34 (*) All other components within normal limits POC URINALYSIS DIPSTICK,AUTO - RALS - Abnormal; Notable for the following components: Spec Grav, UA >=1.030 (*) Protein, UA >=300 (*) Blood, UA Trace-lysed (*) All other components within normal limits LIPASE - Normal COVID-19, MOLECULAR - Normal POC LIVER PANEL PLUS RALS - Normal POC TROPONIN I RALS - Normal POC LIVER PANEL PLUS RALS - Normal POC LIVER PANEL PLUS POC URINALYSIS DIPSTICK,AUTO POC BASIC METABOLIC PANEL POC TROPONIN I XR Abdomen AP Preliminary Result NG tube with its tip in the mid stomach. PD/sjk Workstation ID: [id number] CT Abdomen Pelvis Without Contrast Final Result 1. Thickening of the small bowel loops within the left upper quadrant with associated dilation to 3.8 cm and edema in the adjacent mesentery. Consider infectious enteritis and inflammatory bowel disease. A partial/early small bowel obstruction is considered less likely given that no transition point is present. 2. Cholelithiasis. Workstation ID: [id number] XR Chest 1 View Final Result No acute cardiopulmonary findings within the limitation of the study. SA/ges Workstation ID: [id number] Procedures: EKG 12-lead Date/Time: 06/03/2020 11:58 AM Performed by: Roe Mann MD Authorized by: Roe Mann MD Interpreted by ED attending physician Rhythm: sinus rhythm BPM: 85 Conduction: conduction normal T Inversion: V5 and V6 T Flattening: III and aVF Other: no other findings Clinical impression: abnormal ECG Comments: T wave inversion in leads V5 V6 also lead III and aVF. Slight strain pattern ST elevation V1 through V3 ECG 12 Lead Date/Time: 06/03/2020 2:56 PM Performed by: Roe Mann MD Authorized by: Roe Mann MD Interpreted by ED attending physician Rhythm: sinus rhythm BPM: 86 Conduction: conduction normal T Inversion: V5, V6, II, III and aVF normal OK interval Clinical impression: abnormal ECG The patient has been informed that they may have pre-hypertension or hypertension based on a blood pressure reading in the Emergency Department. I recommend that the patient call the primary care provider listed on their discharge instructions or a physician of their choice as soon as possible to arrange follow-up in the next 4 weeks for further evaluation of possible pre-hypertension or hypertension. . Roe Mann MD ED Physician [facility] (Please note that portions of this note have been completed with a voice recognition software. Efforts were made to correct any errors, but occasionally words are mis-transcribed.) Roe Mann MD 06/03/20 1746 Pt c/o severe mid-epigastric pain that is constant and radiates around to his back. Pt relates the abd pain started yesterday but became worse this morning. He denies changes in bowel or bladder. Denies vomiting or fever but relates nausea with pain. Pt denies sob. documented in this encounter FOR RECORDS PERTAINING TO PATIENTS WHO ARE OR HAVE BEEN ENROLLED IN A CHEMICAL DEPENDENCY/SUBSTANCEABUSE PROGRAM, SOME INFORMATION MAY BE OMITTED. This clinical summary was aggregated from multiple sources. Caution should be exercised in using it in the provision of clinical care. This summary normalizes information from multiple sources, and as a consequence, information in this document may materially change the coding, format and clinical context of patient data. In addition, data may be omitted in some cases. CLINICAL DECISIONS SHOULD BE BASED ON THE PRIMARY CLINICAL RECORDS. [employer] provides no warranty or guarantee of the accuracy or completeness of information in this document.
== END | disposition home or self-care (01) ==
LOC: CT 08:59
PROVIDERS: PCP Family Medicine; Referring Provider Family Medicine; Visit Provider Family Medicine
DX: R41.82 Altered mental status, unspecified (principal)
CPT/HCPCS: 70450

== ENCOUNTER 2023-11-08 21:05 | Emergency (ER) | payer OTHER, SELFPAY ==
[2023-11-08 21:05] VITALS: BP 201/131; BP 210/121; PULSE 76; PULSE 79; RESP 14; TEMP 36.6; O2SAT 96; BMI 34.6
--- NOTE | 2023-11-08 21:20 | CT_ITS ---
STUDY: CT BRAIN WITHOUT CONTRAST REASON FOR EXAM: Male, 38 years old. papilledema, R eye visual disturbance RADIATION DOSAGE (If Supplied By Facility): CTDIvol = ( 44.99 ) mGy, DLP = ( 863.60 ) mGycm TECHNIQUE: Transaxial CT imaging of the brain was performed without administration of intravenous contrast material. Individualized dose optimization techniques were used for this CT. COMPARISON: 04/20/2023 FINDINGS: Normal soft tissue structures. Normal calvarium. Normal size ventricles and extra-axial spaces for the patient''s age. Normal white matter tracts of the cerebral hemispheres. Normal basal ganglia and thalami. Normal brainstem. Normal cerebellum. There is no intracranial hemorrhage. There are no findings of an acute ischemic infarction. Normal visualized paranasal sinuses. CT/Brain/Head without Contrast IMPRESSION: Normal unenhanced CT scan of the brain. Electronically Signed: Misha Nicole MD at 22:20 EDT ,
--- NOTE | 2023-11-08 21:21 | EDS_ITS ---
HPI History of Present Illness Chief Complaint: Eye Problem Informant: patient Narrative Narrative: 38-year-old male presenting after [address] that his environmental planner told him to come to the ER to get today. He was diagnosed with papilledema today. He states he saw an gas pump attendant a week ago because of visual disturbances in his right eye that he has been having for several weeks who looked at his eye and referred him to an environmental planner, and he saw them today. It was not here in this area but this is where he lives. He has chronic renal problems and hypertension. He is on multiple medications for these things. He follows with Dr. Marge Godinez for renal. He states he started a new job recently, he is on multiple medications for blood pressure and he stopped the isosorbide for several months because he did not like the way it made him feel and it was making him have trouble focusing at work. Now he is taking it again and his other medications as he is supposed to, at least for several weeks. He denies any headaches, vision loss, left eye symptoms, peripheral neurologic symptoms, recent illness, or trouble walking or being off balance/dizzy. When asking all his questions patient states he is just here to get the CT that was recommended for him. [facility] Medical History High cholesterol GERD (gastroesophageal reflux disease) Essential (primary) hypertension Acute enteritis CKD (chronic kidney disease) stage 3, GFR 30-59 ml/min Home Medications ?Medication ?Instructions ?Recorded ?Last Taken ?Type atorvastatin 40 mg tablet 40 mg PO QHS #30 tabs 06/07/20 Unknown Rx pantoprazole 40 mg tablet,delayed 40 mg PO DAILY #30 tabs 06/07/20 Unknown Rx release clonidine HCl 0.1 mg tablet 0.1 mg PO Q12H 06/29/20 07/11/20 History isosorbide dinitrate 20 mg tablet 20 tablet PO DAILY 06/29/20 07/11/20 History hydralazine 100 mg tablet 50 mg PO TID 07/11/20 07/11/20 History losartan 50 mg tablet 50 mg PO BID 11/08/23 Unknown History metoprolol tartrate 25 mg tablet 25 mg PO BID 11/08/23 Unknown History Allergy/AdvReac Type Severity Reaction Status Date / Time No Known Allergies Allergy Verified 11/08/23 21:06 Surgical History History of left heart catheterization (06/06/20) Social History Smoking Status: Never smoker alcohol intake: current alcohol intake frequency: holidays/special occasions only ROS ROS ED Constitutional Constitutional ED: Denies chills or fever(s) Eyes Eyes: Reports as per HPI and change in vision; Denies diplopia ENT ENT ED: Denies dizziness, rhinorrhea or sore throat Cardiovascular Cardiovascular: Denies chest pain or palpitations Respiratory/Chest Respiratory/Chest: Denies cough or dyspnea Gastrointestinal Gastrointestinal: Denies abdominal pain, diarrhea, nausea or vomiting Genitourinary Genitourinary ED: Denies dysuria or hematuria Musculoskeletal Musculoskeletal: Denies back pain or neck pain Integumentary Denies abscess or rash Neurologic Neurologic: Denies headache(s), paresthesias or weakness Psychiatric Psychiatric: Denies suicidal thoughts EXAM Physical Exam Const Vital Signs: 11/08/23 21:05 11/08/23 21:05 Temperature 97.9 F Temperature Source Temporal Pulse Rate 79 76 Respiratory Rate 14 14 Blood Pressure 201/131 H 210/121 H Blood Pressure Mean 154 150 Pulse Ox 96 96 Oxygen Delivery Method Room Air Room Air Positive well nourished and well developed General Appearance ED: well developed and NAD HEENT Reports moist mucous membranes normocephalic and atraumatic Eyes PERRL and EOMs intact bilaterally Eyes Narrative: Visual griffin all intact Neck full ROM and supple Resp normal respiratory effort and clear to auscultation bilaterally Cardio regular rate, regular rhythm and no murmurs GI non-tender and non-distended Auscultation: normoactive bowel sounds Palpation: soft Back/Spine no CVA tenderness General Back: other FROM Extremity normal to inspection General Extremety ED: Negative for edema, pulses abnormal or tenderness General Extremity: Negative for edema or pulses abnormal Neuro oriented x3, CN's II-XII intact bilaterally and no sensory deficits noted Neuro Narrative: Normal [id number]-[id number] and fqqt-[id number] bilaterally. Normal gait. Normal speech. Sensorium / Orientation: awake and alert Motor Exam: strength 5/5 throughout Skin no rashes or lesions noted and no wounds MDM MDM MDM Narrative Medical decision making narrative: Patient's blood pressure is very high, 201/131, 210/121. Looking back at old labs he has not had any in our system for 7 or 8 months. Therefore in addition to a CT head I recommend getting some labs and giving him something for his b lood pressure. On reevaluation his blood pressures come down to 172 systolic. I reviewed his head CT and his results which I agree with, it is normal. Labs are noted, shows his chronic kidney disease. I discussed with [facility] neurology, concerning his elevated blood pressures, his papilledema as reported by his environmental planner, and the head CT results which were unremarkable. Her recommendation is to transfer him to [facility] or [facility], for further neurologic evaluation including MRI, LP, and possibly other testing and evaluation in person. I discussed with the patient he adamantly refuses because it is Saturday night he knows he will sit in a hospital all weekend and he states he would rather follow-up with [facility] and does not want to be transferred there tonight either. He has the capacity to make this decision, he understands that in the ER we are not able to rule out neurologic etiologies of this although it may be retinal, and the risks/complications of following up include delays and worsening of what ever the condition is that is causing this. Lab Data Attestation: I reviewed the patient's lab results. Lab results narrative: Laboratory Tests 11/08/23 Range/Units 21:29 WBC 10.0 (4.4-11.0) K/mm3 RBC 5.56 (4.6-6.2) M/mm3 Hgb 15.9 (13.0-16.5) g/dL Hct 46.9 (40-54) % MCV 84.4 (80-94) fL MCH 28.6 (27.0-32.0) pg MCHC 33.9 (32-36) g/dL RDW Std Deviation 42.5 (35.1-43.9) fl RDW Coeff of Marisol 13.7 (11.6-14.6) % Plt Count 274 (150-450) K/mm3 MPV 10.7 (6.2-12.0) fl Immature Gran % (Auto) 0.700 (0.0-0.9) % Neut % (Auto) 56.0 (47-70) % Lymph % (Auto) 25.8 (19-41) % Hickman % (Auto) 12.1 H (0-10) % Eos % (Auto) 4.6 (0-5) % Baso % (Auto) 0.8 (0-1) % Absolute Neuts (auto) 5.6 (2.0-7.7) X10^3/uL Absolute Lymphs (auto) 2.57 (0.83-4.51) X10^3/uL Nucleated RBC % 0 (0-5) % Sodium 140 (136-145) mmol/L Potassium 3.8 (3.5-5.1) mmol/L Chloride 109 H (98-107) mmol/L Carbon Dioxide 25.0 (21.0-32.0) mmol/L Anion Gap 6 (5-15) BUN 22 H (7-18) mg/dL Creatinine 2.71 H (0.70-1.30) mg/dL Estim Creat Clear Calc 50.35 ml/min Est GFR (MDRD) Af Amer 34 L (>60) mL/min Est GFR (MDRD) Non-Af 28 L (>60) mL/min BUN/Creatinine Ratio 8.1 L (10-20) RATIO Glucose 144 H (74-106) mg/dL Calcium 8.9 (8.5-10.1) mg/dL Radiography Diagnostic Testing: Clinical Impression(s) from Imaging Studies Brain CT 11/08/23 21:20 IMPRESSION: Normal unenhanced CT scan of the brain. Electronically Signed: Misha Nicole MD at 22:20 EDT , Management Discussion w/another healthcare provider: Pediatric Care Coordinator ([facility] neurology) Discharge Plan Triage Chief Complaint: Eye Problem ED Provider: Christian Burch Dx/Rx/DC Orders Clinical Impression: Papilledema, CKD (chronic kidney disease) stage 3, GFR 30-59 ml/min, Accelerated hypertension Instructions: Understanding Vision Problems Prescriptions: No Action isosorbide dinitrate 20 mg tablet 20 tablet PO DAILY clonidine HCl 0.1 mg tablet 0.1 mg PO Q12H atorvastatin 40 MG tablet 40 mg PO QHS Qty: 30 0RF pantoprazole 40 MG tablet 40 mg PO DAILY Qty: 30 0RF hydralazine 100 MG tablet 50 mg PO TID Rx Instructions: Hold for SBP less than 120 mmHg losartan 50 mg tablet 50 mg PO BID metoprolol tartrate 25 mg tablet 25 mg PO BID Primary Care Provider: Tamir Ross Referrals: Tamir Ross MD [Primary Care Provider] - As soon as possible Print Language: Tanzanian Disposition Disposition: Against Medical Advice Discharge Date/Time: 11/09/23 00:35
[2023-11-08] MEDS: cloNIDine HCl 0.2 MG Tablet PO (21:36)
[2023-11-08 21:39] LABS: Absolute Lymphocyte Count 2.57 X10^3/uL (0.83-4.51); Absolute Neutrophil Count 5.6 X10^3/uL (2.0-7.7); Basophil# 0.08 X10^3/uL; Basophil% 0.8 % (0-1); Eosinophil# 0.46 X10^3/uL; Eosinophils% 4.6 % (0-5); Hematocrit 46.9 % (40-54); Hemoglobin 15.9 g/dL (13.0-16.5); Lymphocyte # 2.57 X10^3/ul (0.83-4.51); Lymphocyte % 25.8 % (19-41); Mean Corp Hgb Conc 33.9 g/dL (32-36); Mean Corpuscular Hgb 28.6 pg (27.0-32.0); Mean Corpuscular Volume 84.4 fL (80-94); Mean Platelet Vol. 10.7 fl (6.2-12.0); Monocyte% 12.1 % (0-10); NRBC Flagged by Analyzer 0 % (0-5); Neutrophil # 5.57 X10^3/uL (2.7-7.7); Platelet Count 274 K/mm3 (150-450); RBC Distribution Width CV 13.7 % (11.6-14.6); RBC Distribution Width SD 42.5 fl (35.1-43.9); Red Blood Count 5.56 M/mm3 (4.6-6.2)
[2023-11-08 21:55] LABS: Anion Gap 6 (5-15); BUN 22 mg/dL (7-18); BUN/Creat Ratio 8.1 RATIO (10-20); Calcium,Total 8.9 mg/dL (8.5-10.1); Chloride 109 mmol/L (98-107); Creatinine, Serum 2.71 mg/dL (0.70-1.30); EST Glomerular Filtration Rate 28 mL/min (>60); Est Glom Filt Rate - Afr Amer 34 mL/min (>60); Estimated Creatinine Clearance 50.35 ml/min; Glucose 144 mg/dL (74-106); Potassium 3.8 mmol/L (3.5-5.1); Sodium Level 140 mmol/L (136-145)
[2023-11-08 22:17] VITALS: BP 190/128; PULSE 77; RESP 18; O2SAT 96
[2023-11-09 00:26] VITALS: BP 172/98; PULSE 76; RESP 18; TEMP 36.3; O2SAT 92
== END 2023-11-09 00:35 | disposition left against medical advice (07) ==
PROVIDERS: Emergency Provider Emergency Medicine; PCP Family Medicine; Visit Provider Emergency Medicine
DX: H47.10 Unspecified papilledema (principal); N18.30 Chronic kidney disease, stage 3 unspecified; I12.9 Hypertensive chronic kidney disease with stage 1 through stage 4 chronic kidney disease, or unspecified chronic kidney disease; E78.00 Pure hypercholesterolemia, unspecified; Z79.899 Other long term (current) drug therapy
CPT/HCPCS: 70450; 80048; 85025; 99283

== ENCOUNTER → 2023-11-29 | Outpatient (CLI) | payer OTHER, SELFPAY ==
[2023-11-29 09:17] LABS: Protein, Urine (Random) 93.7 mg/dL (<11.9); Protein:Creat Ratio 1667 mg/g CRE (0-200)
[2023-11-29 09:33] LABS: Albumin, Serum 3.4 g/dL (3.2-5.0); BUN 31 mg/dL (7-18); BUN/Creat Ratio 10.2 RATIO (10-20); Calcium,Total 9.3 mg/dL (8.5-10.1); Chloride 105 mmol/L (98-107); Creatinine, Serum 3.04 mg/dL (0.70-1.30); EST Glomerular Filtration Rate 24 mL/min (>60); Est Glom Filt Rate - Afr Amer 30 mL/min (>60); Glucose 107 mg/dL (74-106); Phosphorus 3.1 mg/dL (2.5-4.9); Potassium 4.3 mmol/L (3.5-5.1); Sodium Level 139 mmol/L (136-145)
== END | disposition home or self-care (01) ==
LOC: LAB 08:39
PROVIDERS: PCP Family Medicine; Referring Provider Internal Medicine Nephrology; Visit Provider Internal Medicine Nephrology
DX: R80.9 Proteinuria, unspecified (principal); N18.31 Chronic kidney disease, stage 3a
CPT/HCPCS: 36415; 80069; 82570; 84156

== ENCOUNTER → 2024-01-06 | Outpatient (CLI) | payer BC, SELFPAY ==
[2024-01-06 10:23] LABS: Albumin, Serum 3.4 g/dL (3.2-5.0); BUN 29 mg/dL (7-18); BUN/Creat Ratio 9.6 RATIO (10-20); Calcium,Total 9.5 mg/dL (8.5-10.1); Chloride 105 mmol/L (98-107); Creatinine, Serum 3.03 mg/dL (0.70-1.30); EST Glomerular Filtration Rate 24 mL/min (>60); Est Glom Filt Rate - Afr Amer 30 mL/min (>60); Glucose 117 mg/dL (74-106); Phosphorus 3.1 mg/dL (2.5-4.9); Potassium 4.7 mmol/L (3.5-5.1); Sodium Level 138 mmol/L (136-145)
== END | disposition home or self-care (01) ==
LOC: LAB 08:45
PROVIDERS: PCP Family Medicine; Referring Provider Internal Medicine Nephrology; Visit Provider Internal Medicine Nephrology
DX: N18.31 Chronic kidney disease, stage 3a (principal); R80.9 Proteinuria, unspecified
CPT/HCPCS: 36415; 80069

== ENCOUNTER → 2024-04-16 | Outpatient (CLI) | payer BC, SELFPAY ==
[2024-04-16 10:37] LABS: ALB/GLOB Ratio 0.9 RATIO (0.9-2.4); AST(SGOT) 19 U/L (15-37); Alanine Aminotransfer ALT/SGPT 19 U/L (16-61); Albumin, Serum 3.3 g/dL (3.2-5.0); Alkaline Phosphatase 125 U/L (45-117); Anion Gap 8 (5-15); BUN 26 mg/dL (7-18); BUN/Creat Ratio 9.2 RATIO (10-20); Calcium,Total 9.1 mg/dL (8.5-10.1); Chloride 108 mmol/L (98-107); Cholesterol 227 mg/dL (200); Creatinine, Serum 2.83 mg/dL (0.70-1.30); EST Glomerular Filtration Rate 26 mL/min (>60); Est Glom Filt Rate - Afr Amer 32 mL/min (>60); Globulin 3.6 g/dL (2.2-4.2); Glucose 111 mg/dL (74-106); High Density Lipoprotein 42 mg/dL; Potassium 3.9 mmol/L (3.5-5.1); Protein, Total 6.9 g/dL (6.4-8.2); Sodium Level 140 mmol/L (136-145); Triglycerides 416 mg/dL
== END | disposition home or self-care (01) ==
LOC: MFPLAB 08:41
PROVIDERS: PCP Family Medicine; Visit Provider Family Medicine
DX: E78.00 Pure hypercholesterolemia, unspecified (principal)
CPT/HCPCS: 36415; 80053; 80061

== ENCOUNTER → 2024-06-03 | Outpatient (CLI) | payer BC, SELFPAY ==
[2024-06-03 09:37] LABS: Albumin, Serum 3.5 g/dL (3.2-5.0); BUN 25 mg/dL (7-18); BUN/Creat Ratio 8.3 RATIO (10-20); Calcium,Total 9.5 mg/dL (8.5-10.1); Chloride 107 mmol/L (98-107); Creatinine, Serum 3.03 mg/dL (0.70-1.30); EST Glomerular Filtration Rate 24 mL/min (>60); Est Glom Filt Rate - Afr Amer 30 mL/min (>60); Glucose 111 mg/dL (74-106); Phosphorus 2.8 mg/dL (2.5-4.9); Potassium 4.6 mmol/L (3.5-5.1); Sodium Level 138 mmol/L (136-145)
[2024-06-03 09:59] LABS: Protein, Urine (Random) 31.2 mg/dL (<11.9); Protein:Creat Ratio 966 mg/g CRE (0-200)
== END | disposition home or self-care (01) ==
PROVIDERS: PCP Family Medicine; Referring Provider Internal Medicine Nephrology; Visit Provider Internal Medicine Nephrology
DX: N18.31 Chronic kidney disease, stage 3a (principal); R80.9 Proteinuria, unspecified
CPT/HCPCS: 36415; 80069; 82570; 84156

== ENCOUNTER → 2024-06-26 | Outpatient (CLI) | payer BC, SELFPAY ==
--- NOTE | 2024-06-26 12:12 | SP.MBSS_ITS ---
Modified Barium Swallow Patient Information Study Date: 06/26/24 Study Time: 12:50 Direct Billable Minutes: 51 Total Minutes procedure & reportin Diagnosis: Dysphagia R13.10 Referring Physician: Tamir Ross Reason for Referral: Assess swallow function, assess risk for aspiration, and determine recommendations for least restrictive diet textures and compensatory strategies to facilitate safe po intake. Medical History: PMH: High cholesterol, GERD, HTN, Acute enteritis, CKD stage 3. See EMR for full PMH. The patient was referred by his PCP for intermittent swallowing difficulty in the past year. From April-May 2024, the patient was having odynophagia, which he attributed to consuming highly acidic coffee. He had to eat and drink very slowly, chewing carefully during this time. Of note, he had been ill just prior to onset of swallowing difficulty, as well. He was experiencing some regurgitation of food, which has occurred infrequently before (~1-2X/year). He feels at this time his swallowing difficulty is mostly resolved, but his PCP wanted him to complete this study. Current Diet Ordered: Regular textures / Thin liquids Dentition: WNL and Natural Teeth Mental Status: WNL Respiratory Status: Oxygenating on Room Air Penetration-Aspiration Scale Penetration-Aspiration Scale: OBJECTIVE ASSESSMENT OF SWALLOW FUNCTION (QUANTITATIVE ? PER TRIAL): PENETRATION / ASPIRATION SCALE (ARMAS): 1 = does not enter airway 2 = enters airway/above vocal folds/ejected 3 = enters airway/above vocal folds/not ejected 4 = enters airway/contacts vocal folds/ejected 5 = enters airway/contacts vocal folds/not ejected 6 = enters airway/below vocal folds/ejected 7 = enters airway/below vocal folds/not ejected despite effort 8 = enters airway/below vocal folds/no effort VIDEOFLOROSCOPIC SCALE SCORE (ARMAS): Grade I = aspiration of material that has penetrated into the laryngeal vestibule, intact cough reflex Grade II = aspiration < 10 % of the bolus, intact cough reflex Grade III = aspiration of < 10 % of the bolus, reduced cough reflex or aspiration of > 10 % of the bolus, intact cough reflex Grade IV = aspiration of > 10 % of the bolus, reduced cough reflex Penetration-Aspiration Scale Score Thin Liquid via teaspoon: Result: 1= does not enter airway Thin Liquid via teaspoon Trial 2: Result: 1= does not enter airway Thin Liquid via large single sip: cup: Result: 1= does not enter airway Thin Liquid via sequential sips: cup: Result: 1= does not enter airway Comment: Esophageal screen - Complete clearance. Pudding via teaspoon: Result: 1= does not enter airway Comment: Esophageal screen - Retention of pudding in the lower esophagus w/ minimal retrograde flow. Thin Liquid via single sip: straw: Result: 1= does not enter airway Comment: Esophageal screen - Brief retention w/ retrograde flow in lower esophagus with complete clearance through the LES. 1/2 Cookie coated in barium pudding: Result: 1= does not enter airway Comment: Esophageal screen - Retention in the lower esophagus, mostly cleared through the LES, then retrograde flow to the lower esophagus. Liquid wash provided during the screen, which fully cleared cookie residue and thin liquids through the LES. Oral Phase Labial Seal: No Labial Escape Tongue Control During Bolus Hold: Posterior escape of greater than half of bolus Bolus Preparation/Mastication: Timely and efficient chewing and mashing Bolus Transport/Lingual Motion: Delayed initiation of tongue motion Oral Residue: Residue collection on oral structures (Piecemeal deglutition) Pharyngeal Phase Initiation of Pharyngeal Swallow: Bolus head in pyriforms Soft Palate Elevation: Trace column of contrast/air between soft palate and pharyngeal wall Laryngeal Elevation: Comp. Superior move thyroid cart w/comp. apprx arytenoid cart-epig pet Anterior Hyoid Excursion: Partial anterior movement Epiglottic Movement: Complete inversion Laryngeal Vestibule Closure at Height of Swallow: Complete; no air/contrast in laryngeal vestibule Pharyngeal Stripping Wave: Present - complete Pharyngoesophageal Segment Opening: Parital distension and partial duration; parital obstruction of flow (Trace retention in UES) Tongue Base Retraction: No contrast between tongue base and posterior pharyngeal wall Pharyngeal Residue: Trace residue within or on pharyngeal structures Esophageal Phase Esophageal Clearance: Esophageal retention w/ retrograde flow below pharyngoesophageal seg. Diagnosis/Impression Diagnosis: Oropharyngeal swallow function grossly WNL; Esophageal dysphagia R13.14 Impression: Oropharyngeal swallow function grossly WNL. Piecemeal deglutition w/ pudding and cookie, which fully cleared oral cavity w/ independent use of multiple swallows. Posterior loss of thin liquids to the pyriforms w/ sequential thin. Good airway closure during the swallow w/ no laryngeal penetration or aspiration. Good pharyngeal motility w/ only trace pharyngeal residues. The esophageal phase is marked by... -Retention of pudding in lower esophagus w/ min retrograde flow, which fully cleared w/ thin liquid wash. -Retention of cookie in the lower esophagus w/ retrograde flow through the LES to the lower esophagus, which fully cleared w/ thin liquid wash. Recommendations Diet: Regular Textures and Thin Liquids Compensatory Strategies: Small Bites, Small Sips, Slow Rate, Alternate bites/solids and sips/liquids, Sitting upright and Remain sitting upright for 30 minutes after PO intake Recommend Repeat Modified Barium Swallow: No Need for Skilled Speech Therapy Services: No Recommended Referrals: GI Consult Education Completed: 1. Described result of evaluation. Status Active ST Patient: Active Contact Information [facility] Speech Therapy:: Alyson Rodriguez M.A. CCC-ROLLER COASTER OPERATOR? Speech-Language Pathologist?? [facility] [address] [place] [address]? [email or web address]?? [phone]
== END | disposition home or self-care (01) ==
LOC: RAD 12:45
PROVIDERS: PCP Family Medicine; Referring Provider Family Medicine; Visit Provider Family Medicine
DX: R13.10 Dysphagia, unspecified (principal)
CPT/HCPCS: 74230; 92611

== ENCOUNTER → 2024-06-30 | Outpatient (CLI) | payer BC, SELFPAY ==
[2024-06-30 13:02] LABS: Hematocrit 46.4 % (40-54); Hemoglobin 15.9 g/dL (13.0-16.5); Mean Corp Hgb Conc 34.3 g/dL (32-36); Mean Corpuscular Hgb 28.5 pg (27.0-32.0); Mean Corpuscular Volume 83.2 fL (80-94); Mean Platelet Vol. 10.5 fl (6.2-12.0); Platelet Count 276 K/mm3 (150-450); RBC Distribution Width SD 42.3 fl (35.1-43.9); Red Blood Count 5.58 M/mm3 (4.6-6.2); White Blood Count 8.7 K/mm3 (4.4-11.0)
[2024-06-30 13:28] LABS: Albumin, Serum 4.5 g/dL (3.5-5.0); Anion Gap 10 (5-15); BUN 26 mg/dL (4-19); BUN/Creat Ratio 8.6 RATIO (10-20); Calcium,Total 10.1 mg/dL (7.6-11.0); Carbon Dioxide 24.1 mmol/L (21.0-32.0); Chloride 104 mmol/L (98-108); Creatinine, Serum 3.05 mg/dL (0.70-1.20); EST Glomerular Filtration Rate 26 (>60); Glucose 95 mg/dL (70-99); Phosphorus 3.8 mg/dL (2.7-4.5); Potassium 4.5 mmol/L (3.3-5.1); Sodium Level 139 mmol/L (133-145)
[2024-07-02 11:08] LABS: ANTINUCLEAR ANTIBODIES DIRECT Negative (Negative)
== END | disposition home or self-care (01) ==
LOC: LAB 12:37
PROVIDERS: PCP Family Medicine; Referring Provider Internal Medicine Nephrology; Visit Provider Internal Medicine Nephrology
DX: R80.9 Proteinuria, unspecified (principal)
CPT/HCPCS: 36415; 80069; 85027; 86038

== ENCOUNTER → 2024-08-04 | Outpatient (CLI) | payer BC, SELFPAY ==
[2024-08-04] VITALS (13 sets, daily range): BP systolic 108–137; BP diastolic 77–96; PULSE 45–64; RESP 14–17; TEMP 36.8; O2SAT 94–99; BMI 34.7
--- NOTE | 2024-08-04 08:37 | CT_ITS ---
PROCEDURE: BIOPSY/INJ OR NEEDLE PLACEMENT 08/04/2024 REASON FOR EXAM: PROTEINURIA CT-guided right renal biopsy. TECHNIQUE: The procedure as well as the benefits and possible complications including infection and bleeding were explained to the patient. Informed consent was obtained. The patient was given 1 mg of Versed intravenously. The patient was monitored independently by the nurse. Conscious sedation was started at 1054 a.m. and terminated at 11:12 a.m.. The overlying skin was prepped and draped in usual sterile fashion. Following local anesthetic application, an 18 gauge core biopsy needle was placed in the upper pole of the right kidney. 5 core biopsies were obtained. The patient tolerated the procedure well. One or more dose reduction techniques were used (e.g., Automated exposure control, adjustment of the mA and/or kV according to patient size, use of iterative reconstruction technique). RADIATION DOSE SUMMARY: CTDlvol: 21.5 mGy DLP: 628.21 mGycm COMPARISON: None FINDINGS: Successful CT-guided core biopsies of the upper pole of the right kidney. CT/Biopsy/Inj or Needle Placement IMPRESSION: Successful CT-guided core biopsies of the upper pole of the right kidney. The patient tolerated the procedure well. No immediate complication was noted. [facility]
[2024-08-04 08:47] LABS: Absolute Lymphocyte Count 1.85 X10^3/uL (0.83-4.51); Absolute Neutrophil Count 5.3 X10^3/uL (2.0-7.7); Basophil# 0.08 X10^3/uL; Basophil% 0.9 % (0-1); Eosinophil# 0.47 X10^3/uL; Eosinophils% 5.3 % (0-5); Hematocrit 43.8 % (40-54); Hemoglobin 15.1 g/dL (13.0-16.5); Lymphocyte # 1.85 X10^3/ul (0.83-4.51); Mean Corp Hgb Conc 34.5 g/dL (32-36); Mean Corpuscular Volume 84.2 fL (80-94); Mean Platelet Vol. 10.8 fl (6.2-12.0); Monocyte# 1.04 X10^3/uL; Monocyte% 11.8 % (0-10); NRBC Flagged by Analyzer 0 % (0-5); Neutrophil % 60.2 % (47-70); Platelet Count 246 K/mm3 (150-450); RBC Distribution Width CV 14.5 % (11.6-14.6); RBC Distribution Width SD 44.1 fl (35.1-43.9); White Blood Count 8.8 K/mm3 (4.4-11.0)
[2024-08-04 08:54] LABS: International Normalized Ratio 0.9; Partial Thromboplast Time 27.7 Seconds (24.1-36.2); Prothrombin Time (Protime)PT. 12.6 SECONDS (11.7-14.9)
[2024-08-04] MEDS: Midazolam 2 MG/2 ML Syringe IV (10:54)
[2024-08-04] MEDS: Lidocaine 2% (20 ml mdv) 20 ML Vial INFILT (11:00)
[2024-08-04 11:44] LABS: Pathology Sent to OSU SEE PATHOLOGY REPORT
== END | disposition home or self-care (01) ==
LOC: CT 08:25
PROVIDERS: Radiology Diagnostic Radiology; PCP Family Medicine; Referring Provider Internal Medicine Nephrology; Visit Provider Internal Medicine Nephrology
DX: N18.30 Chronic kidney disease, stage 3 unspecified (principal); R80.9 Proteinuria, unspecified; N17.9 Acute kidney failure, unspecified
CPT/HCPCS: 50200; 36415; 77012; 85025; 85610; 85730; 99156; A4216

== ENCOUNTER → 2024-09-11 | Outpatient (CLI) | payer BC, SELFPAY ==
[2024-09-11 08:30] LABS: Hematocrit 45.6 % (40-54); Hemoglobin 15.5 g/dL (13.0-16.5); Mean Corpuscular Hgb 28.8 pg (27.0-32.0); Mean Corpuscular Volume 84.8 fL (80-94); Mean Platelet Vol. 10.9 fl (6.2-12.0); Platelet Count 253 K/mm3 (150-450); RBC Distribution Width CV 13.6 % (11.6-14.6); RBC Distribution Width SD 41.9 fl (35.1-43.9); Red Blood Count 5.38 M/mm3 (4.6-6.2)
[2024-09-11 09:09] LABS: Albumin, Serum 4.2 g/dL (3.5-5.0); Anion Gap 11 (5-15); BUN 32 mg/dL (4-19); BUN/Creat Ratio 10.2 RATIO (10-20); Calcium,Total 9.7 mg/dL (7.6-11.0); Carbon Dioxide 22.1 mmol/L (21.0-32.0); Chloride 103 mmol/L (98-108); Creatinine, Serum 3.09 mg/dL (0.70-1.20); EST Glomerular Filtration Rate 25 (>60); Glucose 110 mg/dL (70-99); Phosphorus 3.1 mg/dL (2.7-4.5); Potassium 4.3 mmol/L (3.3-5.1); Sodium Level 137 mmol/L (133-145)
== END | disposition home or self-care (01) ==
LOC: LAB 08:02
PROVIDERS: PCP Family Medicine; Referring Provider Internal Medicine Nephrology; Visit Provider Internal Medicine Nephrology
DX: N18.31 Chronic kidney disease, stage 3a (principal)
CPT/HCPCS: 36415; 80069; 85027

== ENCOUNTER → 2025-03-24 | Outpatient (CLI) | payer BC, SELFPAY ==
--- OUTSIDE RECORDS SUMMARY | 2025-03-24 08:45 | XMS RPT_ITS | CCD ---
Author Organization [facility] Care Team Providers Care [employer] Name Role Phone Pau Dereje Unavailable Unavailable Dereje Mai Unavailable Unavailable No Doctor Assigned, Nodr Unavailable Unavail able No, Physician Primary Care Provider Unavailabl e NO, PHYSICIAN Primary Care Unavailable ROE ESCAMILLA Attending Unavailable Unavailable Primary Care Provider Unavailabl e JONO CORTEZ Attending Unavailable JONO CORTEZ Attending Unavailable Cody LEIGH, Dr. Garnett Primary Care Provider Dr. Tamir Ross MD Attending Provider [phone] Dr. Marge Feldman DO Attending Provider Dr. Marge Feldman DO Referring Provider Dr. Tamir Ross MD Referring Provider Christian Burch Attending Unavailable Tamir Ross Primary Care Unavailable Marge Feldman Referring Unavailable Marge Feldman Attending Unavailable Tamir Ross Primary Care Unavailable Marge Feldman Attending Unavailable Tamir Ross Primary Care Unavailable Herbert, Marge Referring Unavailable Tamir Ross Primary Care Unavailable Marge Feldman Attending Unavailable Marge Feldman Referring Unavailable Tamir Ross Primary Care Unavailable Tamir Ross Attending Unavailable Marge Feldman Referring Unavailable Tamir Ross Primary Care Unavailable Marge Feldman Attending Unavailable Tamir Ross Primary Care Unavailable Tamir Ross Attending Unavailable Tamir Ross Referring Unavailable Marge Feldman Referring Unavailable Tamir Ross Primary Care Unavailable Marge Feldman Attending Unavailable Anthony Feldmanine Referring Unavailable Tamir Ross Primary Care Unavailable Marge Feldman Attending Unavailable Dr. Tamir Ross MD Primary Care Provider Dr. Tamir Ross MD Attending Provider Medications Current Medications Medication Drug Class(es) Dates Sig (Normalized) Sig (Original) amLODIPine 5 mg oral tablet (13 sources) Dihydropyridine Calcium Channel Radha Start: 08-06-2023 take 1 tablet by mouth once amLODIPine (NORVASC) 5 mg tablet Take 1 tablet by mouth every afternoon. 08/06/2023 Active Start: 06-07-2020 End: 11-08-2023 take 1 tablet by mouth once daily Amlodipine 10 MG tablet Discontinued 10 mg PO DAILY June 07, 2020 1:00am November 08, 2023 9:34pm atorvastatin 40 mg oral tablet (13 sources) HMG-CoA Reductase Inhibitor Start: 06-07-2020 take 1 tablet by mouth at bedtime Atorvastatin 40 MG tablet Active 40 mg PO AT BEDTIME June 07, 2020 1:00am benoxinate hydrochloride 4 mg/ml / fluorescein sodium 3 mg/ml ophthalmic solution (5 sources) Diagnostic Dye Start: 12-09-2023 End: 12-10-2023 fluorescein-benoxi maik 0.3-0.4 % 1 Drop (FLURESS) Start: 12-09-2023 End: 12-10-2023 1 Drop, BOTH EYES, DIRECT ED, Starting on Sat12/09/23 at 1530, Until Sat12/10/23 at 0329, Administer for applanation tonometry. In the event of a Fluress shortage, administer 1 drop of [place]-Fluor into both eyes as directed for applanation tonometry., [facility]HT [facility]INIC MED ORDERS Start: 11-08-2023 End: 11-09-2023 fluorescein-benoxinate 0.3-0 .4 % 1 Drop (FLURESS) cloNIDine hydrochloride 0.1 mg oral tablet (13 sources) Central alpha-2 Adrenergic Agonist Start: 06-29-2020 take 1 tablet by mouth every twelve hours Clonidine Hcl 0.1 mg tablet Active 0.1 mg PO Q12H June 29, 2020 12:00am Start: 06-29-2020 take 0.1 mg by mouth three times daily Clonidine Hcl Active 0.1 MG PO THREE TIMES A DAY June 28, 2020 11:00pm dapagliflozin 10 mg oral tablet (2 sources) Sodium-Glucose Cotransporter 2 Inhibitor Start: 11-27-2023 take 1 tablet by mouth once FARXIGA 10 mg tablet Take 1 tablet by mouth every afternoon. 11/27/2023 Active hydrALAZINE hydrochloride 50 mg oral tablet (20 sources) Arteriolar Vasodilator Start: 11-02-2023 hydrALAZINE (APRESOLINE) 50 mg tablet 11/02/2023 Active Start: 07-11-2020 Hydralazine 10 0 MG tablet Active 50 mg PO DAILY July 11, 2020 7:36am Hold for SBP less than 120 mmHg Start: 07-11-2020 Hydralazine Ac tive 50 MG PO THREE TIMES A DAY July 11, 2020 6:36am Hold for SBP less than 120 mmHg Start: 06-07-2020 End: 07-11-2020 Hydralazine 100 MG tablet Di scontinued 100 mg PO THREE TIMES A DAY 90 June 07, 2020 1:00am July 11, 2020 7:36am Hold for SBP less than 120 mmHg Start: 06-03-2020 End: 06-03-2020 hydrALAZINE (APRESOLINE) inj ection 10 mg isosorbide dinitrate 20 mg oral tablet (13 sources) Nitrate Vasodilator Start: 06-29-2020 take 1 tablet by mouth once daily Isosorbide Dinitrate 20 mg tablet Active 20 {tbl} PO DAILY June 29, 2020 12:00am losartan potassium 50 mg oral tablet (6 sources) Angiotensin 2 Receptor Radha Start: 11-08-2023 take 1 tablet by mouth twice daily Losartan 50 mg tablet Active 50 mg PO TWICE A DAY November 08, 2023 12:00am Start: 08-06-2023 take 1 tablet by mallorie th every twelve hours losartan (COZAAR) 50 mg tablet Take 1 tablet by mouth every 12 hours. 08/06/2023 Active metoprolol tartrate 25 mg oral tablet (20 sources) beta-Adrenergic Radha Start: 11-08-2023 take 1 tablet by mouth twice daily Metoprolol Tartrate 25 mg tablet Active 25 mg PO TWICE A DAY November 08, 2023 12:00am Start: 08-31-2023 take 1 tablet by mallorie th every twelve hours metoprolol tartrate, short acting, (LOPRESSOR) 25 mg tablet Take 1 tablet by mouth every 12 hours. 08/31/2023 Active Start: 07-11-2020 End: 11-08-2023 Metoprolol Tartrate 100 MG t ablet Discontinued 50 mg PO TWICE A DAY July 11, 2020 7:36am November 08, 2023 9:34pm Start: 07-11-2020 take 50 mg by mouth twice lawanda y Metoprolol Tartrate Active 50 MG PO TWICE A DAY July 11, 2020 6:36am Start: 06-07-2020 End: 07-11-2020 take 1 tablet by mouth twice daily Metoprolol Tartrate 100 MG tablet Discontinued 100 mg PO TWICE A DAY 60 June 07, 2020 1:00am July 11, 2020 7:36am phenylephrine hydrochloride 25 mg/ml ophthalmic solution (5 sources) alpha-1 Adrenergic Agonist Start: 12-09-2023 End: 12-10-2023 PHENYLephrine 2.5 % 1 Drop (AK-DILATE, LEONARDO-SYNEPHRINE) Start: 12-09-2023 End: 12-10-2023 1 Drop, BOTH EYES, DIRECT ED, Starting on Sat12/09/23 at 1530, Until Sat12/10/23 at 0329, Administer for dilation PROTECT FROM LIGHT, [facility]HT CLINIC MED ORDERS Start: 11-08-2023 End: 11-09-2023 PHENYLephrine 2.5 % 1 Drop ( AK-DILATE, LEONARDO-SYNEPHRINE) proparacaine hydrochloride 5 mg/ml ophthalmic solution (2 sources) Local Anesthetic Start: 11-08-2023 End: 11-09-2023 proparacaine 0.5 % 1 Drop (ALCAINE) tropicamide 10 mg/ml ophthalmic solution (5 sources) Anticholinergic Start: 12-09-2023 End: 12-10-2023 tropicamide 1 % 1 Drop (MYDRIACYL) Start: 12-09-2023 End: 12-10-2023 1 Drop, BOTH EYES, DIRECT ED, Starting on Sat12/09/23 at 1530, Until Sat12/10/23 at 0329, Administer for dilation, [facility]HT CLINIC MED ORDERS Start: 11-08-2023 End: 11-09-2023 tropicamide 1 % 1 Drop (MYDR IACYL) Completed/Discontinued Medications Medication Drug Class(es) Dates Sig (Normalized) Sig (Original) ALPRAZolam 0.5 mg oral tablet (10 sources) Benzodiazepine Start: 06-29-2020 End: 11-08-2023 take 1 tablet by mouth at bedtime as needed for sleep Alprazolam 0.5 mg tablet Discontinued 0.5 mg PO AT BEDTIME as needed for Sleep June 29, 2020 12:00am November 08, 2023 9:34pm 2 ml famotidine 10 mg/ml injection (1 source) Histamine-2 Receptor Antagonist Start: 06-03-2020 End: 06-03-2020 famotidine (PEPCID) injection 20 mg 1 ml HYDROmorphone hydrochloride 1 mg/ml [...] End: 06-03-2020 ondansetron (ZOFRAN) injection 4 mg pantoprazole 40 mg delayed release oral tablet (13 sources) Proton Pump Inhibitor Start: 06-07-2020 End: 08-04-2024 take 1 tablet by mouth once daily Pantoprazole 40 MG tablet Discontinued 40 mg PO DAILY June 07, 2020 1:00am August 04, 2024 9:15am 1000 ml sodium chloride 9 mg/ml injection (4 sources) Start: 06-03-2020 End: 06-03-2020 sodium chloride 0.9% (NS) Start: 06-03-2020 End: 06-03-2020 sodium chloride 0.9% (NS) ratna martina 1,000 mL Start: 06-03-2020 End: 06-03-2020 sodium chloride (PF) (NS) fl ush 5 mL Problems Active Problems Problem Classification Problem Date Documented Da te Episodic/Chronic Abdominal pain (1 source) Epigastric pain; Translations: [Epigastric pain] Episodic Acute and unspecified renal failure (10 sources) Acute renal failure syndrome; Translations: [Acute kidney failure, unspecified] 06-04-2020 Episodic Acute and unspecified renal failure (1 source) Acute injury of kidney; Translations: [Acute kidney injury (HCC)] Biliary tract disease (1 source) Gallstone; Translations: [Gallstones] Episodic Blindness and vision defects (3 sources) Subjective visual disturbance; Translations: [Unspecified subjective visual disturbances] 11-08-2023 Episodic Chronic kidney disease (10 sources) Chronic kidney disease stage 3; Translations: [Stage 3 chronic kidney disease] 07-11-2020 Chronic Chronic kidney disease (2 sources) Chronic kidney disease; Translations: [Chronic kidney disease, stage 3a] Onset: 5 Disorders of lipid metabolism (1 source) Pure hypercholesterolemia, unspecified; Translations: [Pure hypercholesterolemia, unspecified] Onset: 5 Chronic Essential hypertension (15 sources) Essential hypertension; Translations: [Essential (primary) hypertension] 06-06-2020 Chronic Genitourinary symptoms and ill-defined conditions (1 source) Proteinuria, unspecified; Translations: [Proteinuria, unspecified] Onset: 5 Episodic Hypertension with complications and secondary hypertension (11 sources) Hypertensive urgency ; Translations: [Hypertensive urgency] 06-04-2020 Chronic Intestinal obstruction without hernia (1 source) Partial obstruction of small bowel; Translations: [Partial small bowel obstruction (HCC)] Episodic Other eye disorders (5 sources) Optic disc edema; 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] 11-08-2023 Chronic Other eye disorders (1 source) Unspecified papilledema; 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] Onset: 4 Chronic Other gastrointestinal disorders (1 source) Dysphagia, unspecified; Translations: [Dysphagia, unspecified] Onset: 5 Episodic Other screening for suspected conditions (not mental disorders or infectious disease) (11 sources) Electrocardiogram abnormal; Translations: [Abnormal electrocardiogram [ECG] [EKG]] 06-04-2020 Episodic Retinal detachments; defects; vascular occlusion; and retinopathy (2 sources) Hypertensive retinopathy; Translations: [Hypertensive retinopathy, bilateral] 11-08-2023 Chronic Past or Other Problems Problem Classification Problem Date Documented Da te Episodic/Chronic Unclassified (10 sources) Acute enteritis 01-19-2022 Results Test Name Value Interpretation Reference Range Facility Anion gap in Serum or Plasma Ordered By: Marge Feldman on 09-11-2024 Anion gap [Moles/Vol] 11 mmol/L 5- [facility] BUN/creatinine ratioOrdered By: Marge Feldman on 09-11-2024 Urea nitrogen/Creatinine [Mass ratio] 10.2 mg/mg - [facility] CBC-Complete Blood Cnt No Di ffon 09-11-2024 Erythrocyte distribution width (RBC) [Ratio] 13.6 % Normal 11.6-14.6 [facility] Comment on above: Performed By: #### L 100.0500, L500.3600 ####[facility] [address] [place], [address] Hematocrit (Bld) [Volume fraction] 45.6 % Normal 40-54 [facility] Comment on above: Performed By: #### L 100.0500, L500.3600 ####[facility] [address] [place], [address] Hemoglobin (Bld) [Mass/Vol] 15.5 g/dL Normal 13.0-16.5 [facility] Comment on above: Performed By: #### L 100.0500, L500.3600 ####[facility] [address] [place], [address] MCH (RBC) [Entitic mass] 28.8 pg Normal 27.0-32.0 [facility] Comment on above: Performed By: #### L 100.0500, L500.3600 ####[facility] [address] [place], [address] MCHC (RBC) [Mass/Vol] 34.0 g/dL Normal 32-36 [facility] Comment on above: Performed By: #### L 100.0500, L500.3600 ####[facility] [address] [place], [address] MCV (RBC) [Entitic vol] 84.8 fL Normal 80-94 [facility] Comment on above: Performed By: #### L 100.0500, L500.3600 ####[facility] [address] [place], [address] Platelet mean volume (Bld) [Entitic vol] 10.9 fL Normal 6.2-12.0 [facility] Comment on above: Performed By: #### L 100.0500, L500.3600 ####[facility] [address] [place], [address] Platelets (Bld) [#/Vol] 253 10*3/uL Normal 150-450 [facility] Comment on above: Performed By: #### L 100.0500, L500.3600 ####[facility] [address] [place], [address] RBC (Bld) [#/Vol] 5.38 10*6/uL Normal 4.6-6.2 [facility] Comment on above: Performed By: #### L 100.0500, L500.3600 ####[facility] [address] [place], [address] RDW SD 41.9 fl Normal 35.1-43.9 [facility] Comment on above: Performed By: #### L 100.0500, L500.3600 ####[facility] [address] [place], [address] WBC (Bld) [#/Vol] 9.0 10*3/uL Normal 4.4-11.0 [facility] Comment on above: Performed By: #### L 100.0500, L500.3600 ####[facility] [address] [place], [address] Carbon dioxide, total [Moles /volume] in Central venous bloodOrdered By: Marge Feldman on 09-11-2024 CO2 [Moles/Vol] 22.1 mmol/L 21.0-32.0 [facility] Chloride assayOrdered By: Kely Feldman on 09-11-2024 Chloride [Moles/Vol] 103 mmol/L 98-108 [facility] Erythrocyte distribution wid th ratioOrdered By: Marge Feldman on 09-11-2024 Erythrocyte distribution width (RBC) [Ratio] 13.6 % 11.6-14.6 [facility] Erythrocyte distribution wid th standard deviationOrdered By: Marge Feldman on 09-11-2024 Erythrocyte distribution width (RBC) [Ratio] 41.9 fl 35.1-43.9 [facility] Glomerular filtration rate ( GFR) estimation/1.73 sq m using serum, plasma, or whole bOrdered By: Marge Feldman on 09-11-2024 GFR/1.73 sq M.predicted among non-blacks MDRD (S/P/Bld) [Vol rate/Area] 25 mL/min/{1.73_m2} Low >60 [facility] Comment on above: mL/min/1.73m2 CKD-EP I Creatinine Equation (2020) Hematocrit Auto (Bld) [Volum e fraction]Ordered By: Marge Feldman on 09-11-2024 Hematocrit (Bld) [Volume fraction] 45.6 % 40-54 [facility] Hemoglobin measurementOrdere d By: Marge Feldman on 09-11-2024 Hemoglobin (Bld) [Mass/Vol] 15.5 g/dL 13.0-16.5 [facility] MCV (mean corpuscular volume ) determinationOrdered By: Marge Feldman on 09-11-2024 MCV (RBC) [Entitic vol] 84.8 fL 80-94 [facility] Mean corpuscular hemoglobin (MCH) determinationOrdered By: Marge Feldman on 09-11-2024 MCH (RBC) [Entitic mass] 28.8 pg 27.0-32.0 [facility] Mean corpuscular hemoglobin concentration (MCHC) determinationOrdered By: Marge Feldman 09-11-2024 MCHC (RBC) [Mass/Vol] 34.0 g/dL 32-36 [facility] Mean platelet volume determi nationOrdered By: Marge Feldman on 09-11-2024 Platelet mean volume (Bld) [Entitic vol] 10.9 fL 6.2-12.0 [facility] Platelet countOrdered By: Kely Feldman on 09-11-2024 Platelets (Bld) [#/Vol] 253 10*3/uL 150-450 [facility] Potassium measurement (mass/ volume)Ordered By: Marge Feldman on 09-11-2024 Potassium (Unsp spec) [Mass/Vol] 4.3 mmol/L 3.3-5.1 [facility] RBC Auto (Bld) [#/Vol]Ordere d By: Marge Feldman on 09-11-2024 RBC (Bld) [#/Vol] 5.38 10*6/uL 4.6-6.2 [facility] Renal Profileon 09-11-2024 Albumin [Mass/Vol] 4.2 g/dL Normal 3.5-5.0 [facility] Comment on above: Performed By: #### L 100.0500, L500.3600 ####[facility] [address] [place], [address] BUN/CRE 10.2 RATIO Normal 10-20 [facility] Comment on above: Performed By: #### L 100.0500, L500.3600 ####[facility] [address] [place], [address] Calcium [Mass/Vol] 9.7 mg/dL Normal 7.6-11.0 [facility] Comment on above: Performed By: #### L 100.0500, L500.3600 ####[facility] [address] [place], [address] Chloride [Moles/Vol] 103 mmol/L Normal 98-108 [facility] Comment on above: Performed By: #### L 100.0500, L500.3600 ####[facility] [address] [place], [address] CO2 [Moles/Vol] 22.1 mmol/L Normal 21.0-32.0 [facility] Comment on above: Performed By: #### L 100.0500, L500.3600 ####[facility] [address] [place], [address] Creatinine [Mass/Vol] 3.09 mg/dL High 0.70-1.20 [facility] Comment on above: Performed By: #### L 100.0500, L500.3600 ####[facility] [address] [place], [address] GAP 11 Normal 5-15 [facility] Comment on above: Performed By: #### L 100.0500, L500.3600 ####[facility] [address] [place], [address] GFR/1.73 sq M.predicted among non-blacks MDRD (S/P/Bld) [Vol rate/Area] 25 mL/min/{1.73_m2} Low >60 [facility] Comment on above: Result Comment: mL/m in/1.73m2 CKD-EPI Creatinine Equation (2020) Performed By: #### L 100.0500, L500.3600 ####[facility] [address] [place], [address] Glucose [Mass/Vol] 110 mg/dL High 70-99 [facility] Comment on above: Performed By: #### L 100.0500, L500.3600 ####[facility] [address] [place], [address] Phosphate [Mass/Vol] 3.1 mg/dL Normal 2.7-4.5 [facility] Comment on above: Performed By: #### L 100.0500, L500.3600 ####[facility] [address] [place], [address] Potassium [Moles/Vol] 4.3 mmol/L Normal 3.3-5.1 [facility] Comment on above: Performed By: #### L 100.0500, L500.3600 ####[facility] [address] [place], [address] Sodium [Moles/Vol] 137 mmol/L Normal 133-145 [facility] Comment on above: Performed By: #### L 100.0500, L500.3600 ####[facility] [address] [place], [address] Urea nitrogen [Mass/Vol] 32 mg/dL High 4-19 [facility] Comment on above: Performed By: #### L 100.0500, L500.3600 ####[facility] [address] [place], [address] Serum creatinine measurement (mass/volume)Ordered By: Marge Feldman on 09-11-2024 Creatinine [Mass/Vol] 3.09 mg/dL High 0.70-1.20 [facility] Serum glucose measurement (m ass/volume)Ordered By: Marge Feldman on 09-11-2024 Glucose [Mass/Vol] 110 mg/dL High 70-99 [facility] Serum or plasma albumin keshia urement (mass/volume)Ordered By: Marge Feldman on 09-11-2024 Albumin [Mass/Vol] 4.2 g/dL 3.5-5.0 [facility] Serum or plasma calcium keshia urement (mass/volume)Ordered By: Marge Feldman on 09-11-2024 Calcium [Mass/Vol] 9.7 mg/dL 7.6-11.0 [facility] Serum or plasma urea nitroge n measurement (mass/volume)Ordered By: Marge Feldman on 09-11-2024 Urea nitrogen [Mass/Vol] 32 mg/dL High -19 [facility] Sodium levelOrdered By: Wei Feldman on 09-11-2024 Sodium [Moles/Vol] 137 mmol/L 133-145 [facility] White blood cell (WBC) count Ordered By: Marge Feldman on 09-11-2024 WBC (Bld) [#/Vol] 9.0 10*3/uL 4.4-11.0 [facility] Absolute lymphocyte countOrd ered By: Min Ceron on 08-04-2024 Lymphocytes Auto (Unsp spec) [#/Vol] 1.85 10*3/uL 0.83-4.51 [facility] Absolute neutrophil countOrd ered By: Min Zepedabooker on 08-04-2024 Neutrophils (Bld) [#/Vol] 5.3 10*3/uL 2.0-7.7 [facility] Activated partial thrombopla stin time (aPTT) in platelet poor plasma by coagulation aOrdered By: Min Ceron on 08-04-2024 aPTT Coag (PPP) [Time] 27.7 s 24.1-36.2 [facility] Automated lymphocyte count a s percentage of total leukocytesOrdered By: Min Ceron on 08-04-2024 Lymphocytes/100 WBC Auto (Unsp spec) 21.0 % 19-41 [facility] Basophil percentageOrdered B y: Min Ceron on 08-04-2024 Basophils/100 WBC (Bld) 0.9 % 0-1 [facility] Biopsy/Inj or Needle Placeme nton 08-04-2024 Biopsy/Inj or Needle Placement [facility] [address] [place], [place] [address] Biopsy/Inj or Needle Placement MR#: [id number] Acct: [id number] Name: WILTON QUIROZ Rep #: [id number] : 1985 M 38 From: Min islas MD PCP: Dr. Tamir Ross MD Status: [facility] Study: Biopsy/Inj or Needle Placement Date of Exam: 0 08/04/24 Exam# [id number] Ordering Dr: Marge Feldman DO PROCEDURE: BIOPSY/INJ OR NEEDLE PLACEMENT 08/04/2024 REASON FOR EXAM: PROTEINURIA CT-guided right renal biopsy. TECHNIQUE: The procedure as well as the benefits and possible complications including infection and bleeding were explained to the patient. Informed consent was obtained. The patient was given 1 mg of Versed intravenously. The patient was monitored independently by the nurse. Conscious sedation was started at 1054 a.m. and terminated at 11:12 a.m.. The overlying skin was prepped and draped in usual sterile fashion. Following local anesthetic application, an 18 gauge core biopsy needle was placed in the upper pole of the right kidney. 5 core biopsies were obtained. The patient tolerated the procedure well. One or more dose reduction techniques were used (e.g., Automated exposure control, adjustment of the mA and/or kV according to patient size, use of iterative reconstruction technique). RADIATION DOSE SUMMARY: CTDlvol: 21.5 mGy DLP: 628.21 mGycm COMPARISON: None FINDINGS: Successful CT-guided core biopsies of the upper pole of the right kidney. CT/Biopsy/Inj or Needle Placement IMPRESSION: Successful CT-guided core biopsies of the upper pole of the right kidney. The patient tolerated the procedure well. No immediate complication was noted. Reading Location: [place] [address] CC: Dr. Marge Feldman DO; Dr. Tamir Ross MD Surgical Instrument Maker: Signed Normal [facility] CBC W/Diff, Automatedon 07-15 Absolute Lymph 1.85 X10 3/uL Normal 0.83-4.51 [facility] Comment on above: Performed By: #### L 300.3900, L100.0100, L300.4310 ####[facility] [address] [place], [address] Absolute Neut 5.3 X10 3/uL Normal 2.0-7.7 [facility] Comment on above: Performed By: #### L 300.3900, L100.0100, L300.4310 ####[facility] [address] [place], [address] Basophils/100 WBC (Bld) 0.9 % Normal 0-1 [facility] Comment on above: Performed By: #### L 300.3900, L100.0100, L300.4310 ####[facility] [address] [place], [address] Eosinophils/100 WBC (Bld) 5.3 % High 0-5 [facility] Comment on above: Performed By: #### L 300.3900, L100.0100, L300.4310 ####[facility] [address] [place], [address] Erythrocyte distribution width (RBC) [Ratio] 14.5 % Normal 11.6-14.6 [facility] Comment on above: Performed By: #### L 300.3900, L100.0100, L300.4310 ####[facility] [address] [place], [address] Hematocrit (Bld) [Volume fraction] 43.8 % Normal 40-54 [facility] Comment on above: Performed By: #### L 300.3900, L100.0100, L300.4310 ####[facility] [address] [place], [address] Hemoglobin (Bld) [Mass/Vol] 15.1 g/dL Normal 13.0-16.5 [facility] Comment on above: Performed By: #### L 300.3900, L100.0100, L300.4310 ####[facility] [address] [place], [address] IG% 0.800 Normal 0.0-0.9 [facility] Comment on above: Result Comment: IG% - Immature Granulocytes (promyelocytes, myelocytes and metamyelocytes) > 1% indicates that a LEFT SHIFT is Present. Performed By: #### L 300.3900, L100.0100, L300.4310 ####[facility] [address] [place], [address] Lymphocytes/100 WBC (Bld) 21.0 % Normal 19-41 [facility] Comment on above: Performed By: #### L 300.3900, L100.0100, L300.4310 ####[facility] [facility] [address] [place], [address] MCH (RBC) [Entitic mass] 29.0 pg Normal 27.0-32.0 [facility] Comment on above: Performed By: #### L 300.3900, L100.0100, L300.4310 ####[facility] [address] [place], [address] MCHC (RBC) [Mass/Vol] 34.5 g/dL Normal 32-36 [facility] Comment on above: Performed By: #### L 300.3900, L100.0100, L300.4310 ####[facility] [address] [place], [address] MCV (RBC) [Entitic vol] 84.2 fL Normal 80-94 [facility] Comment on above: Performed By: #### L 300.3900, L100.0100, L300.4310 ####[facility] [address] [place], [address] Monocytes/100 WBC (Bld) 11.8 % High 0-10 [facility] Comment on above: Performed By: #### L 300.3900, L100.0100, L300.4310 ####[facility] [address] [place], [address] Neutrophils/100 WBC (Bld) 60.2 % Normal 47-70 [facility] Comment on above: Performed By: #### L 300.3900, L100.0100, L300.4310 ####[facility] [address] [place], [address] Nucleated RBC (Bld) [#/Vol] 0 10*3/uL Normal 0-5 [facility] Comment on above: Performed By: #### L 300.3900, L100.0100, L300.4310 ####[facility] [address] [place], [address] Platelet mean volume (Bld) [Entitic vol] 10.8 fL Normal 6.2-12.0 [facility] Comment on above: Performed By: #### L 300.3900, L100.0100, L300.4310 ####[facility] [address] [place], [address] Platelets (Bld) [#/Vol] 246 10*3/uL Normal 150-450 [facility] Comment on above: Performed By: #### L 300.3900, L100.0100, L300.4310 ####[facility] [address] [place], [address] RBC (Bld) [#/Vol] 5.20 10*6/uL Normal 4.6-6.2 [facility] Comment on above: Performed By: #### L 300.3900, L100.0100, L300.4310 ####[facility] [address] [place], [address] RDW SD 44.1 fl High 35.1-43.9 [facility] Comment on above: Performed By: #### L 300.3900, L100.0100, L300.4310 ####[facility] [address] [place], [address] WBC (Bld) [#/Vol] 8.8 10*3/uL Normal 4.4-11.0 [facility] Comment on above: Performed By: #### L 300.3900, L100.0100, L300.4310 ####[facility] [address] [place], [address] Eosinophil percentageOrdered By: Min Ceron on 08-04-2024 Eosinophils/100 WBC (Bld) 5.3 % High 0-5 [facility] Erythrocyte distribution wid th ratioOrdered By: Min Ceron on 08-04-2024 Erythrocyte distribution width (RBC) [Ratio] 14.5 % 11.6-14.6 [facility] Erythrocyte distribution wid th standard deviationOrdered By: Min Ceron on 08-04-2024 Erythrocyte distribution width (RBC) [Ratio] 44.1 fl High 35.1-43.9 [facility] Hematocrit Auto (Bld) [Volum e fraction]Ordered By: Min Ceron on 08-04-2024 Hematocrit (Bld) [Volume fraction] 43.8 % 40-54 [facility] Hemoglobin measurementOrdere d By: Min Ceron on 08-04-2024 Hemoglobin (Bld) [Mass/Vol] 15.1 g/dL 13.0-16.5 [facility] Immature granulocytes/100 WB C Auto (Bld)Ordered By: Min Ceron on 08-04-2024 Immature granulocytes/100 WBC (Bld) 0.800 % 0.0-0.9 [facility] Comment on above: IG% - Immature Granu locytes (promyelocytes, myelocytes and metamyelocytes) > 1% indicates that a LEFT SHIFT is Present. International normalized rat io (INR) calculationOrdered By: Min Ceron on 08-04-2024 INR Coag (Bld) [Relative time] 0.9 {INR} [facility] L350.1810on 08-04-2024 Path [facility] SEE PATHOLOGY REPORT Normal [facility] Comment on above: Order Comment: RESUL TS FAXED TO DR. FELDMAN 08/07/24 0957 Robby Leon. Result Comment: Spec imen sent to [facility]. Report available in EMR. Performed By: #### L 350.1810 #### [facility] [address] [place], [address] MCV (mean corpuscular volume ) determinationOrdered By: Min Ceron on 08-04-2024 MCV (RBC) [Entitic vol] 84.2 fL 80-94 [facility] Mean corpuscular hemoglobin (MCH) determinationOrdered By: Min Ceron on 08-04-2024 MCH (RBC) [Entitic mass] 29.0 pg 27.0-32.0 [facility] Mean corpuscular hemoglobin concentration (MCHC) determinationOrdered By: Min Ceron on 08-04-2024 MCHC (RBC) [Mass/Vol] 34.5 g/dL 32-36 [facility] Mean platelet volume determi nationOrdered By: Min Ceron on 08-04-2024 Platelet mean volume (Bld) [Entitic vol] 10.8 fL 6.2-12.0 [facility] Monocyte percentageOrdered B y: Min Ceron on 08-04-2024 Monocytes/100 WBC (Bld) 11.8 % High 0-10 [facility] Neutrophil percentageOrdered By: Min Ceron on 08-04-2024 Neutrophils/100 WBC (Bld) 60.2 % 47-70 [facility] Nucleated red blood cell per centageOrdered By: Min Ceron on 08-04-2024 Nucleated RBC/100 WBC (Bld) [Ratio] 0 % 0-5 [facility] Partial Thromboplast Timeon 08-04-2024 aPTT Coag (Bld) [Time] 27.7 s Normal 24.1-36.2 [facility] Comment on above: Performed By: #### L 300.3900, L100.0100, L300.4310 ####[facility] [address] [place], [place], [id number] Platelet countOrdered By: Laci Ceron on 08-04-2024 Platelets (Bld) [#/Vol] 246 10*3/uL 150-450 [facility] Prothrombin Time w/INRon INR Coag (PPP) [Relative time] 0.9 {INR} Normal [facility] Comment on above: Performed By: #### L 300.3900, L100.0100, L300.4310 ####[facility] [address] [place], [place], [id number] PT Coag (PPP) [Time] 12.6 s Normal 11.7-14.9 [facility] Comment on above: Performed By: #### L 300.3900, L100.0100, L300.4310 ####[facility] [address] [place], [address] Prothrombin timeOrdered By: Min Ceron on 08-04-2024 PT Coag (PPP) [Time] 12.6 s 11.7-14.9 [facility] RBC Auto (Bld) [#/Vol]Ordere d By: Min Ceron on 08-04-2024 RBC (Bld) [#/Vol] 5.20 10*6/uL 4.6-6.2 [facility] SURG PATH REQUESTon 08-05-19 25 Case Report Normal [facility] Comment on above: Result Comment: Surg ical Pathology Report Case: [id number] Authorizing Provider: Marge Feldman DO Collected: 08/04/2024 11:00 AM Ordering Location: [facility] Received: 08/05/2024 07:17 AM [facility] Pathologist: Angela Bradshaw MD Specimen: [id number] Performed By: #### S URGP #### [facility] (DEFAULT) [address] [place] [address] Clinical History A 38-year-old male with chronic kidney disease, poorly controlled blood pressure, and large body size, weight 274 pounds with a height of 6'3 (BMI 34.2 kg/m2, not obese), blood pressure approximately 154/92 mmHg on several medications including amlodipine, hydralazine, losartan, metoprolol, dapagliflozin. The patient has had chronic proteinuria at least since October 2022, and the proteinuria is quantitated to be around 2 grams by ratio. There is a history of hypertensive disorder in both of his parents as well. The patient also has hyperlipidemia. Serum albumin 3.5 g/dL, calcium 9.5, phosphorus 2.8, potassium 4.6, bicarbonate 28.0. Serum creatinine is up to 3.0 mg/dL with eGFR of 24 mL/min. In May 2024, his UPCR was 966 mg/g. He does not have history of microscopic hematuria and no dysuria, foamy urine, tea-colored urine. No history of syncope. No chest pain, nausea or vomiting. No evidence of lower extremity swelling. Back in October 2022, his UPCR was up to 2 g/g, but it did come down to 1.47 g in 2022 and then 1.6 g in November 2023. His autoimmune serologies are negative. Normal [facility] Comment on above: Performed By: #### S URGP #### [facility] (DEFAULT) [address] [place] [address] Gross Description Normal [facility] Comment on above: Result Comment: Mary. Debbie boyce from [facility], [place], [place], is a sun'aq kidney biopsy with two containers labeled with the patient's name and date of . The vial with formalin contains 3 pieces of 0.1 cm tobar-pink renal cores with the aggregate length of 5.8 cm. One 0.2 cm piece in total length is submitted for electron microscopy. The IF transport medium vial contains one piece of 0.1 cm tobar-pink renal core with the aggregate length of 1.8 cm. One 1.8 cm piece in total length is submitted for immunofluorescence and is cut into 3 pieces. All soft tissue and formalin-fixed tissue is submitted for light microscopy. TE 2 Summary of Sections: A1 - 6 pieces A2 - 3 pieces IF tissue Grosser for this case was: Eligio Bustillo Grosser for this case was: Alec Handy Performed By: #### S URGP #### [facility] (DEFAULT) [address] [place] [address] Microscopic Description Normal [facility] Comment on above: Result Comment: LIGH T MICROSCOPY Paraffin-embedded sections stained with H&E, PAS, trichrome, and Kyle methenamine silver contain renal cortex with up to 23 glomeruli per section. Eleven to 12 glomeruli are globally sclerosed. 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 There is moderate to prominent arterial fibrointimal thickening as well as moderate arteriolar hyaline focally. Overall, the cortex shows patchy/zonal scarring with inflammation. No active crescents or proliferative glomerular lesions are seen. DIRECT IMMUNOFLUORESCENCE Frozen sections contain renal cortex with up to five glomeruli per section. Two glomeruli are globally sclerotic. Direct immunofluorescence staining with antibodies to albumin, IgG, IgA, IgM, C1q, C3, fibrinogen, and both kappa and lambda light chains is performed, and the results are as follows: Albumin: Background staining (no tubular protein reabsorption droplets) IgG: Negative IgA: 3+ diffuse but mild granular mesangial, 3+ tubular casts IgM: No specific staining C1q: Negative C3: 3+ diffuse granular glomerular Fibrinogen: Negative [place] light chain: 1+ granular paramesangial Lambda light chain: 2+ granular paramesangial (Grading of the staining intensity is performed on a semiquantitative scale from 0 to 3+) All positive and negative controls were reviewed by the attending pathologist and showed appropriate reactivity. All immunohistochemistry, in situ hybridization, immunofluorescence, and histochemical tests were developed, and their performance characteristics were determined, by the [facility], Department of Pathology. One or more tests reported here have not been cleared by or approved by the US Food and Drug Administration (FDA). The FDA has determined that such clearance or approval is not necessary. This laboratory is regulated under CLIA as qualified to perform high-complexity testing. The tests are used for clinical purposes and should not be regarded as investigational or for research. ELECTRON MICROSCOPY Methylene blue/basic fuchsin stained semithin sections contain renal cortex with a single glomerulus. This glomerulus is examined under the electron microscope. Ultrastructurally, no discrete electron-dense immune-type deposits are identified. The glomerular basement membrane (GBM) appears to be of normal thickness and texture. Podocyte foot process effacement is mild. No endothelial tubuloreticular inclusions are identified. Arteriolar wall hyaline is noted. Lab Use Only: JobID [id number] Performed By: #### S URGP #### [facility] (DEFAULT) [address] [place] [address] Pathologic Diagnosis Normal [facility] Comment on above: Result Comment: Kady isaac, sun'aq, biopsy: Several globally sclerosed glomeruli and two glomeruli with focal segmental glomerulosclerosis (FSGS) lesions. Mild mesangial IgA staining. Moderate to prominent arteriosclerosis and arteriolar hyaline. Zonal cortical scarring with inflammation (30-40% of the renal cortex). Note: Unfortunately, the biopsy shows at least moderate to moderately advanced chronic renal injury, and the exact cause is difficult to determine because it could be multifactorial. The patient has poorly controlled hypertension, and it is difficult to determine whether it is secondary to the chronic kidney disease or whether the kidney disease is secondary to the poorly controlled blood pressure. There is widespread glomerulosclerosis as well as glomeruli with FSGS lesions. A familial form of FSGS is in he differential. Genetic testing for FSGS is recommended. Although features of active thrombotic microangiopathy (TMA) such as fibrin thrombi, fragmented red blood cells are not seen in the biopsy, a chronic thrombotic microangiopathy is in the differential. Therefore testing for antiphospholipid antibodies and alternative complement pathway regulatory protein mutations such as Factor H, Factor I, membrane cofactor protein and others is also recommended. Although mild IgA and complement C3 staining is noted on immunofluorescence work-up, the biopsy does not show active proliferative glomerular lesions or crescents and ultrastructural examination performed on a single available glomerulus does not show discrete immune-type deposits and only mild podocyte foot process effacement. The patient does not have history of microscopic hematuria. The IgA staining could be incidental. Even if it it represents an IgA nephropathy, it appears to be mild and less likely to be the sole cause of the advanced chronic renal injury in the absence of long-standing history of hematuria. The patchy interstitial inflammation is probably the result of the zonal scarring. There is no history of chronic obstructive or reflux nephropathy reported in the patient. Unfortunately, recovery of renal function is likely to be limited. Conservative renoprotective measures would be important. The biopsy findings were discussed with Dr. Marge Feldman on 08/05/2024. at 1448 EDT Performed By: #### S URGP #### [facility] (DEFAULT) [address] [address] Professional Interpretation Performed at: Normal [facility] Comment on above: Result Comment: [facility] For Immediate Release to Patient's MyChart? Yes [address] [address] Performed By: #### S URGP #### [facility] (DEFAULT) [address] [address] White blood cell (WBC) count Ordered By: Min Ceron on 08-04-2024 WBC (Bld) [#/Vol] 8.8 10*3/uL 4.4-11.0 [facility] ANTINUCLEAR ANTIBODIES DIREC Ton 07-02-2024 SHAWN,DIRECT Negative Normal Negative [facility] Comment on above: Result Comment: Perf ormed at: CB - [facility] [address] [place], [place] [id number] Teleprinter Installer: Baljinder Newton PhD, Phone: [phone] Performed By: #### L 3100.5475, L500.3600, L100.0500 #### [facility] [address] [place], [place], [id number] SHAWN serumOrdered By: Cyndi Feldman on 06-30-2024 Anti-Nuclear Antibody Screen Negative Negative [facility] Comment on above: Performed at: [facility] [address] [place], [place] [id number] Director: Baljinder Newton PhD, Phone: [phone] Anion gap in Serum or Plasma Ordered By: Marge Feldman on 06-30-2024 Anion gap [Moles/Vol] 10 mmol/L 5-15 [facility] BUN/creatinine ratioOrdered By: Marge Feldman on 06-30-2024 Urea nitrogen/Creatinine [Mass ratio] 8.6 mg/mg Low 10-20 [facility] CBC-Complete Blood Cnt No Di ffon 06-30-2024 Erythrocyte distribution width (RBC) [Ratio] 14.0 % Normal 11.6-14.6 [facility] Comment on above: Performed By: #### L 3100.5475, L500.3600, L100.0500 #### [facility] [address] [place], [place], [address] Hematocrit (Bld) [Volume fraction] 46.4 % Normal 40-54 [facility] Comment on above: Performed By: #### L 3100.5475, L500.3600, L100.0500 #### [facility] [address] [place], [address] Hemoglobin (Bld) [Mass/Vol] 15.9 g/dL Normal 13.0-16.5 [facility] Comment on above: Performed By: #### L 3100.5475, L500.3600, L100.0500 #### [facility] [address] [place], [address] MCH (RBC) [Entitic mass] 28.5 pg Normal 27.0-32.0 [facility] Comment on above: Performed By: #### L 3100.5475, L500.3600, L100.0500 #### [facility] [address] [place], [address] MCHC (RBC) [Mass/Vol] 34.3 g/dL Normal 32-36 [facility] Comment on above: Performed By: #### L 3100.5475, L500.3600, L100.0500 #### [facility] [address] [place], [address] MCV (RBC) [Entitic vol] 83.2 fL Normal 80-94 [facility] Comment on above: Performed By: #### L 3100.5475, L500.3600, L100.0500 #### [facility] [address] [place], [address] Platelet mean volume (Bld) [Entitic vol] 10.5 fL Normal 6.2-12.0 [facility] Comment on above: Performed By: #### L 3100.5475, L500.3600, L100.0500 #### [facility] [address] [place], [address] Platelets (Bld) [#/Vol] 276 10*3/uL Normal 150-450 [facility] Comment on above: Performed By: #### L 3100.5475, L500.3600, L100.0500 #### [facility] [address] [place], [address] RBC (Bld) [#/Vol] 5.58 10*6/uL Normal 4.6-6.2 [facility] Comment on above: Performed By: #### L 3100.5475, L500.3600, L100.0500 #### [facility] [address] [place], [address] RDW SD 42.3 fl Normal 35.1-43.9 [facility] Comment on above: Performed By: #### L 3100.5475, L500.3600, L100.0500 #### [facility] [address] [place], [address] WBC (Bld) [#/Vol] 8.7 10*3/uL Normal 4.4-11.0 [facility] Comment on above: Performed By: #### L 3100.5475, L500.3600, L100.0500 #### [facility] [address] [place], [address] Carbon dioxide, total [Moles /volume] in Central venous bloodOrdered By: Marge Feldman on 06-30-2024 CO2 [Moles/Vol] 24.1 mmol/L 21.0-32.0 [facility] Chloride assayOrdered By: Kely Feldman on 06-30-2024 Chloride [Moles/Vol] 104 mmol/L 98-108 [facility] Erythrocyte distribution wid th ratioOrdered By: Marge Feldman on 06-30-2024 Erythrocyte distribution width (RBC) [Ratio] 14.0 % 11.6-14.6 [facility] Erythrocyte distribution wid th standard deviationOrdered By: Marge Feldman on 06-30-2024 Erythrocyte distribution width (RBC) [Entitic vol] 42.3 fL 35.1-43.9 [facility] Erythrocyte distribution width (RBC) [Ratio] 42.3 fl 35.1-43.9 [facility] GFR/1.73 sq M.predicted sherif g non-blacks MDRD (S/P/Bld) [Vol rate/Area]Ordered By: Marge Feldman on 06-30-2024 Estimated GFR (MDRD) Non-Af Amer 26 Low >60 [facility] Comment on above: mL/min/1.73m2 CKD-EP I Creatinine Equation (2020) Glomerular filtration rate ( GFR) estimation/1.73 sq m using serum, plasma, or whole bOrdered By: Marge Feldman on 06-30-2024 GFR/1.73 sq M.predicted among non-blacks MDRD (S/P/Bld) [Vol rate/Area] 26 mL/min/{1.73_m2} Low >60 [facility] Comment on above: mL/min/1.73m2 CKD-EP I Creatinine Equation (2020) Hematocrit Auto (Bld) [Volum e fraction]Ordered By: Marge Feldman on 06-30-2024 Hematocrit (Bld) [Volume fraction] 46.4 % 40-54 [facility] Hemoglobin measurementOrdere d By: Marge Feldman on 06-30-2024 Hemoglobin (Bld) [Mass/Vol] 15.9 g/dL 13.0-16.5 [facility] MCV (mean corpuscular volume ) determinationOrdered By: Marge Feldman on 06-30-2024 MCV (RBC) [Entitic vol] 83.2 fL 80-94 [facility] Mean corpuscular hemoglobin (MCH) determinationOrdered By: Marge Feldman on 06-30-2024 MCH (RBC) [Entitic mass] 28.5 pg 27.0-32.0 [facility] Mean corpuscular hemoglobin concentration (MCHC) determinationOrdered By: Marge Feldman on 06-30-2024 MCHC (RBC) [Mass/Vol] 34.3 g/dL 32-36 [facility] Mean platelet volume determi nationOrdered By: Marge Feldman on 06-30-2024 Platelet mean volume (Bld) [Entitic vol] 10.5 fL 6.2-12.0 [facility] Platelet countOrdered By: Kely Feldman on 06-30-2024 Platelets (Bld) [#/Vol] 276 10*3/uL 150-450 [facility] Potassium (Unsp spec) [Mass/ Vol]Ordered By: Marge Feldman on 06-30-2024 Potassium [Moles/Vol] 4.5 mmol/L 3.3-5.1 [facility] Comment on above: Hemolysis present, R esults could be affected. Potassium measurement (mass/ volume)Ordered By: Marge Feldman on 06-30-2024 Potassium (Unsp spec) [Mass/Vol] 4.5 mmol/L 3.3-5.1 [facility] Comment on above: Hemolysis present, R esults could be affected. RBC Auto (Bld) [#/Vol]Ordere d By: Marge Feldman on 06-30-2024 RBC (Bld) [#/Vol] 5.58 10*6/uL 4.6-6.2 [facility] Renal Profileon 06-30-2024 Albumin [Mass/Vol] 4.5 g/dL Normal 3.5-5.0 [facility] Comment on above: Performed By: #### L 3100.5475, L500.3600, L100.0500 #### [facility] [address] [place], [address] BUN/CRE 8.6 RATIO Low 10-20 [facility] Comment on above: Performed By: #### L 3100.5475, L500.3600, L100.0500 #### [facility] [address] [place], [address] Calcium [Mass/Vol] 10.1 mg/dL Normal 7.6-11.0 [facility] Comment on above: Performed By: #### L 3100.5475, L500.3600, L100.0500 #### [facility] [address] [place], [address] Chloride [Moles/Vol] 104 mmol/L Normal 98-108 [facility] Comment on above: Performed By: #### L 3100.5475, L500.3600, L100.0500 #### [facility] [address] [place], [address] CO2 [Moles/Vol] 24.1 mmol/L Normal 21.0-32.0 [facility] Comment on above: Performed By: #### L 3100.5475, L500.3600, L100.0500 #### [facility] [address] [place], [address] Creatinine [Mass/Vol] 3.05 mg/dL High 0.70-1.20 [facility] Comment on above: Performed By: #### L 3100.5475, L500.3600, L100.0500 #### [facility] [address] [place], [address] GAP 10 Normal 5-15 [facility] Comment on above: Performed By: #### L 3100.5475, L500.3600, L100.0500 #### [facility] [address] [place], [address] GFR/1.73 sq M.predicted among non-blacks MDRD (S/P/Bld) [Vol rate/Area] 26 mL/min/{1.73_m2} Low >60 [facility] Comment on above: Result Comment: mL/m in/1.73m2 CKD-EPI Creatinine Equation (2020) Performed By: #### L 3100.5475, L500.3600, L100.0500 #### [facility] [address] [place], [address] Glucose [Mass/Vol] 95 mg/dL Normal 70-99 [facility] Comment on above: Performed By: #### L 3100.5475, L500.3600, L100.0500 #### [facility] [address] [place], [address] Phosphate [Mass/Vol] 3.8 mg/dL Normal 2.7-4.5 [facility] Comment on above: Performed By: #### L 3100.5475, L500.3600, L100.0500 #### [facility] [address] [place], [address] Potassium [Moles/Vol] 4.5 mmol/L Normal 3.3-5.1 [facility] Comment on above: Result Comment: Hemo lysis present, Results??could be affected. ?? Performed By: #### L 3100.5475, L500.3600, L100.0500 #### [facility] [address] [place], [address] Sodium [Moles/Vol] 139 mmol/L Normal 133-145 [facility] Comment on above: Performed By: #### L 3100.5475, L500.3600, L100.0500 #### [facility] [address] [place], [address] Urea nitrogen [Mass/Vol] 26 mg/dL High 08-01 [facility] Comment on above: Performed By: #### L 3100.5475, L500.3600, L100.0500 #### [facility] [address] [place], [address] Serum creatinine measurement (mass/volume)Ordered By: Marge Feldman on 06-30-2024 Creatinine [Mass/Vol] 3.05 mg/dL High 0.70-1.20 [facility] Serum glucose measurement (m ass/volume)Ordered By: Marge Feldman on 06-30-2024 Glucose [Mass/Vol] 95 mg/dL 70-99 [facility] Serum or plasma albumin keshia urement (mass/volume)Ordered By: Marge Feldman on 06-30-2024 Albumin [Mass/Vol] 4.5 g/dL 3.5-5.0 [facility] Serum or plasma calcium keshia urement (mass/volume)Ordered By: Marge Feldman on 06-30-2024 Calcium [Mass/Vol] 10.1 mg/dL 7.6-11.0 [facility] Serum or plasma urea nitroge n measurement (mass/volume)Ordered By: Marge Feldman on 06-30-2024 Urea nitrogen [Mass/Vol] 26 mg/dL High - [facility] Serum phosphorus measurement Ordered By: Marge Feldman on 06-30-2024 Phosphorus Level 3.8 mg/dL 2.7-4.5 [facility] Sodium levelOrdered By: Wei Feldman on 06-30-2024 Sodium [Moles/Vol] 139 mmol/L 133-145 [facility] White blood cell (WBC) count Ordered By: Marge Feldman on 06-30-2024 WBC (Bld) [#/Vol] 8.7 10*3/uL 4.4-11.0 [facility] Modified Barium Swallow Stud yon 06-26-2024 Modified Barium Swallow Study [facility] Speech Pathology [address] [place] [address] Modified Barium Swallow Study MR#: [id number] Acct: [id number] Name: WILTON QUIROZ Rep #: [id number] : 1985 38 From: Alyson Rodriguez M.A., [facility]-OPTICAL ENGINEERING TECHNICIAN Modified Barium Swallow Patient Information Study Date: 06/26/24 Study Time: 12:50 Direct Billable Minutes: 51 Total Minutes procedure reportin Diagnosis: Dysphagia R13.10 Referring Physician: Tamir Ross Reason for Referral: Assess swallow function, assess risk for aspiration, and determine recommendations for least restrictive diet textures and compensatory strategies to facilitate safe po intake. Medical History: PMH: High cholesterol, GERD, HTN, Acute enteritis, CKD stage 3. See EMR for full PMH. The patient was referred by his PCP for intermittent swallowing difficulty in the past year. From April-May 2024, the patient was having odynophagia, which he attributed to consuming highly acidic coffee. He had to eat and drink very slowly, chewing carefully during this time. Of note, he had been ill just prior to onset of swallowing difficulty, as well. He was experiencing some regurgitation of food, which has occurred infrequently before ( 1-2X/year). He feels at this time his swallowing difficulty is mostly resolved, but his PCP wanted him to complete this study. Current Diet Ordered: Regular textures / Thin liquids Dentition: WNL and Natural Teeth Mental Status: WNL Respiratory Status: Oxygenating on Room Air Penetration-Aspiratio n Scale Penetration-Aspiratio n Scale: OBJECTIVE ASSESSMENT OF SWALLOW FUNCTION (QUANTITATIVE ??? PER TRIAL): PENETRATION / ASPIRATION SCALE (ARMAS): 1 = does not enter airway 2 = enters airway/above vocal folds/ejected 3 = enters airway/above vocal folds/not ejected 4 = enters airway/contacts vocal folds/ejected 5 = enters airway/contacts vocal folds/not ejected 6 = enters airway/below vocal folds/ejected 7 = enters airway/below vocal folds/not ejected despite effort 8 = enters airway/below vocal folds/no effort VIDEOFLOROSCOPIC SCALE SCORE (ARMAS): Grade I = aspiration of material that has penetrated into the laryngeal vestibule, intact cough reflex Grade II = aspiration < 10 % of the bolus, intact cough reflex Grade III = aspiration of < 10 % of the bolus, reduced cough reflex or aspiration of > 10 % of the bolus, intact cough reflex Grade IV = aspiration of > 10 % of the bolus, reduced cough reflex Penetration-Aspiratio n Scale Score Thin Liquid via teaspoon: Result: 1= does not enter airway Thin Liquid via teaspoon Trial 2: Result: 1= does not enter airway Thin Liquid via large single sip: cup: Result: 1= does not enter airway Thin Liquid via sequential sips: cup: Result: 1= does not enter airway Comment: Esophageal screen - Complete clearance. Pudding via teaspoon: Result: 1= does not enter airway Comment: Esophageal screen - Retention of pudding in the lower esophagus w/ minimal retrograde flow. Thin Liquid via single sip: straw: Result: 1= does not enter airway Comment: Esophageal screen - Brief retention w/ retrograde flow in lower esophagus with complete clearance through the LES. 1/2 Cookie coated in barium pudding: Result: 1= does not enter airway Comment: Esophageal screen - Retention in the lower esophagus, mostly cleared through the LES, then retrograde flow to the lower esophagus. Liquid wash provided during the screen, which fully cleared cookie residue and thin liquids through the LES. Oral Phase Labial Seal: No Labial Escape Tongue Control During Bolus Hold: Posterior escape of greater than half of bolus Bolus Preparation/Masticati on: Timely and efficient chewing and mashing Bolus Transport/Lingual Motion: Delayed initiation of tongue motion Oral Residue: Residue collection on oral structures (Piecemeal deglutition) Pharyngeal Phase Initiation of Pharyngeal Swallow: Bolus head in pyriforms Soft Palate Elevation: Trace column of contrast/air between soft palate and pharyngeal wall Laryngeal Elevation: Comp. Superior move thyroid cart w/comp. apprx arytenoid cart-epig pet Anterior Hyoid Excursion: Partial anterior movement Epiglottic Movement: Complete inversion Laryngeal Vestibule Closure at Height of Swallow: Complete; no air/contrast in laryngeal vestibule Pharyngeal Stripping Wave: Present - complete Pharyngoesophageal Segment Opening: Parital distension and partial duration; parital obstruction of flow (Trace retention in UES) Tongue Base Retraction: No contrast between tongue base and posterior pharyngeal wall Pharyngeal Residue: Trace residue within or on pharyngeal structures Esophageal Phase Esophageal Clearance: Esophageal retention w/ retrograde flow below pharyngoesophageal seg. Diagnosis/Impression Diagnosis: Oropharyngeal swallow function grossly WNL; Esophageal dysphagia R13.14 Impression: Orophar (more content not included)... Normal [facility] Blood urea nitrogen (BUN)/cr eatinine ratioOrdered By: Marge Feldman on 06-03-2024 Urea nitrogen/Creatinine [Mass ratio] 8.3 mg/mg Low 10-20 [facility] Carbon dioxide measurementOr dered By: Marge Feldman on 06-03-2024 CO2 [Moles/Vol] 28.0 mmol/L 21.0-32.0 [facility] Chloride measurementOrdered By: Marge Feldman on 06-03-2024 Chloride [Moles/Vol] 107 mmol/L 98-107 [facility] Estimated glomerular filtrat ion rate (GFR) AmericanOrdered By: Marge Feldman on 06-03-2024 Estimated GFR (MDRD) Amer 30 mL/min Low >60 [facility] Comment on above: GFR Calc Glomerular filtration rate ( GFR) estimationOrdered By: Marge Feldman on 06-03-2024 Estimated GFR (MDRD) Non-Af Amer 24 mL/min Low >60 [facility] Comment on above: Non- GFR Calc GFR/1.73 sq M.predicted among non-blacks MDRD (S/P/Bld) [Vol rate/Area] 24 mL/min/{1.73_m2} Low >60 [facility] Comment on above: Non- GFR Calc Glucose measurementOrdered B y: Marge Feldman on 06-03-2024 Glucose [Mass/Vol] 111 mg/dL High 74-106 [facility] Comment on above: Fasting Glucose resu lt from 100 to 125 mg/dL suggests IMPAIRED HOMEOSTASIS per A.D.A. criteria. Phosphorus measurementOrdere d By: Marge Feldman on 06-03-2024 Phosphorus Level 2.8 mg/dL 2.5-4.9 [facility] Potassium measurementOrdered By: Marge Feldman on 06-03-2024 Potassium [Moles/Vol] 4.6 mmol/L 3.5-5.1 [facility] Protein+Creatinine Ratio,Uri neon 06-03-2024 PROT:CRE RATIO 966 mg/g CRE High 0-200 [facility] Comment on above: Performed By: #### L 500.3600, L501.0900 ####[facility] [address] [place], [address] Protein (U) [Mass/Vol] 31.2 mg/dL High <11.9 [facility] Comment on above: Performed By: #### L 500.3600, L501.0900 ####[facility] [address] [place], [address] UR CREAT 32.30 mg/dL Normal NO RANGE EST. [facility] Comment on above: Performed By: #### L 500.3600, L501.0900 ####[facility] [address] [place], [address] Protein/Creatinine (U) [Mass ratio]Ordered By: Marge Feldman on 06-03-2024 Urine Protein/Creatinine Ratio 966 mg/g CRE High 0-200 [facility] Random urine protein measure mentOrdered By: Marge Feldman on 06-03-2024 Protein (U) [Mass/Vol] 31.2 mg/dL High 0.0-11.8 [facility] Renal Profileon 06-03-2024 Albumin [Mass/Vol] 3.5 g/dL Normal 3.2-5.0 [facility] Comment on above: Performed By: #### L 500.3600, L501.0900 ####[facility] [address] [place], [address] BUN/CRE 8.3 RATIO Low 10-20 [facility] Comment on above: Performed By: #### L 500.3600, L501.0900 ####[facility] [address] [place], [address] CA,Total 9.5 mg/dL Normal 8.5-10.1 [facility] Comment on above: Performed By: #### L 500.3600, L501.0900 ####[facility] [address] [place], [address] Chloride [Moles/Vol] 107 mmol/L Normal 98-107 [facility] Comment on above: Performed By: #### L 500.3600, L501.0900 ####[facility] [address] [place], [address] CO2 [Moles/Vol] 28.0 mmol/L Normal 21.0-32.0 [facility] Comment on above: Performed By: #### L 500.3600, L501.0900 ####[facility] [address] [place], [address] Creatinine [Mass/Vol] 3.03 mg/dL High 0.70-1.30 [facility] Comment on above: Result Comment: The validity of the calculated GFR GFRAA in patients over 70 years has not been determined. Clinical correlation is essential. Performed By: #### L 500.3600, L501.0900 ####[facility] [address] [place], [address] EST GFR - AA 30 mL/min Low >60 [facility] Comment on above: Result Comment: Afri can Bulgarian GFR Calc Performed By: #### L 500.3600, L501.0900 ####[facility] [address] [place], [address] GFR/1.73 sq M.predicted among non-blacks MDRD (S/P/Bld) [Vol rate/Area] 24 mL/min/{1.73_m2} Low >60 [facility] Comment on above: Result Comment: Non- GFR Calc Performed By: #### L 500.3600, L501.0900 ####[facility] [address] [place], [address] Glucose [Mass/Vol] 111 mg/dL High 74-106 [facility] Comment on above: Result Comment: Fast ing Glucose result from 100 to 125 mg/dL suggests IMPAIRED HOMEOSTASIS per A.D.A. criteria. Performed By: #### L 500.3600, L501.0900 ####[facility] [address] [place], [address] Phosphate [Mass/Vol] 2.8 mg/dL Normal 2.5-4.9 [facility] Comment on above: Performed By: #### L 500.3600, L501.0900 ####[facility] [address] [place], [address] Potassium [Moles/Vol] 4.6 mmol/L Normal 3.5-5.1 [facility] Comment on above: Performed By: #### L 500.3600, L501.0900 ####[facility] [address] [place], [address] Sodium [Moles/Vol] 138 mmol/L Normal 136-145 [facility] Comment on above: Performed By: #### L 500.3600, L501.0900 ####[facility] [address] [place], [address] Urea nitrogen [Mass/Vol] 25 mg/dL High 7-18 [facility] Comment on above: Performed By: #### L 500.3600, L501.0900 ####[facility] [address] [place], [address] Serum or plasma albumin keshia urement (mass/volume)Ordered By: Marge Feldman on 06-03-2024 Albumin [Mass/Vol] 3.5 g/dL 3.2-5.0 [facility] Serum or plasma calcium keshia urement (mass/volume)Ordered By: Marge Feldman on 06-03-2024 Calcium [Mass/Vol] 9.5 mg/dL 8.5-10.1 [facility] Serum or plasma creatinine m easurement (mass/volume)Ordered By: Marge Feldman on 06-03-2024 Creatinine [Mass/Vol] 3.03 mg/dL High 0.70-1.30 [facility] Comment on above: The validity of the calculated GFR & GFRAA in patients over 70 years has not been determined. Clinical correlation is essential. Serum or plasma urea nitroge n measurement (mass/volume)Ordered By: Marge Feldman on 06-03-2024 Urea nitrogen [Mass/Vol] 25 mg/dL High 7-18 [facility] Sodium levelOrdered By: Wei Feldman on 06-03-2024 Sodium [Moles/Vol] 138 mmol/L 136-145 [facility] Urine creatinine measurement (mass/volume)Ordered By: Marge Feldman on 06-03-2024 Creatinine (U) [Mass/Vol] 32.30 mg/dL NO RANGE EST. [facility] Urine protein/creatinine mas s ratioOrdered By: Marge Feldman on 06-03-2024 Protein/Creatinine (U) [Mass ratio] 966 mg/g CRE High 0-200 [facility] Albumin to globulin ratioOrd ered By: Tamir Ross on 04-16-2024 Albumin/Globulin [Mass ratio] 0.9 {ratio} 0.9-2.4 [facility] Bilirubin, totalOrdered By: Tamir Ross on 04-16-2024 Bilirubin [Mass/Vol] 0.30 mg/dL 0.20-1.00 [facility] Comment on above: For patients on eltr ombopag therapy, use of Dimension Isabella TBIL is not recommended. Blood urea nitrogen (BUN)/cr eatinine ratioOrdered By: Tamir Ross on 04-16-2024 Urea nitrogen/Creatinine [Mass ratio] 9.2 mg/mg Low 10-20 [facility] Carbon dioxide measurementOr dered By: Tamir Ross on 04-16-2024 CO2 [Moles/Vol] 25.0 mmol/L 21.0-32.0 [facility] Chloride measurementOrdered By: Tamir Ross on 04-16-2024 Chloride [Moles/Vol] 108 mmol/L High 98-107 [facility] Comprehensive Metabolic Prof ilon 04-16-2024 Albumin [Mass/Vol] 3.3 g/dL Normal 3.2-5.0 [facility] Comment on above: Performed By: #### L 500.4050, L500.4100 ####[facility] [address] [place], [address] Albumin/Globulin [Mass ratio] 0.9 {ratio} Normal 0.9-2.4 [facility] Comment on above: Performed By: #### L 500.4050, L500.4100 ####[facility] [address] [place], [address] ALK P 125 U/L High 45-117 [facility] Comment on above: Performed By: #### L 500.4050, L500.4100 ####[facility] [address] [place], [address] ALT [Catalytic activity/Vol] 19 U/L Normal 16-61 [facility] Comment on above: Performed By: #### L 500.4050, L500.4100 ####[facility] [address] [place], [address] AST [Catalytic activity/Vol] 19 U/L Normal 15-37 [facility] Comment on above: Performed By: #### L 500.4050, L500.4100 ####[facility] [address] [place], [address] Bilirubin [Mass/Vol] 0.30 mg/dL Normal 0.20-1.00 [facility] Comment on above: Result Comment: For patients on eltrombopag therapy, use of Dimension Isabella TBIL is not recommended. Performed By: #### L 500.4050, L500.4100 ####[facility] [address] [place], [address] BUN/CRE 9.2 RATIO Low 10-20 [facility] Comment on above: Performed By: #### L 500.4050, L500.4100 ####[facility] [address] [place], [address] CA,Total 9.1 mg/dL Normal 8.5-10.1 [facility] Comment on above: Performed By: #### L 500.4050, L500.4100 ####[facility] [address] [place], [address] Chloride [Moles/Vol] 108 mmol/L High 98-107 [facility] Comment on above: Performed By: #### L 500.4050, L500.4100 ####[facility] [address] [place], [address] CO2 [Moles/Vol] 25.0 mmol/L Normal 21.0-32.0 [facility] Comment on above: Performed By: #### L 500.4050, L500.4100 ####[facility] [address] [place], [address] Creatinine [Mass/Vol] 2.83 mg/dL High 0.70-1.30 [facility] Comment on above: Result Comment: The validity of the calculated GFR GFRAA in patients over 70 years has not been determined. Clinical correlation is essential. Performed By: #### L 500.4050, L500.4100 ####[facility] [address] [place], [address] EST GFR - AA 32 mL/min Low >60 [facility] Comment on above: Result Comment: Afri can Bulgarian GFR Calc Performed By: #### L 500.4050, L500.4100 ####[facility] [address], [address] GAP 8 Normal 5-15 [facility] Comment on above: Performed By: #### L 500.4050, L500.4100 ####[facility] [address] [place], [address] GFR/1.73 sq M.predicted among non-blacks MDRD (S/P/Bld) [Vol rate/Area] 26 mL/min/{1.73_m2} Low >60 [facility] Comment on above: Result Comment: Non- GFR Calc Performed By: #### L 500.4050, L500.4100 ####[facility] [address] [place], [address] Globulin (S) [Mass/Vol] 3.6 g/dL Normal 2.2-4.2 [facility] Comment on above: Performed By: #### L 500.4050, L500.4100 ####[facility] [address] [place], [address] Glucose [Mass/Vol] 111 mg/dL High 74-106 [facility] Comment on above: Result Comment: Fast ing Glucose result from 100 to 125 mg/dL suggests IMPAIRED HOMEOSTASIS per A.D.A. criteria. Performed By: #### L 500.4050, L500.4100 ####[facility] [address] [place], [address] Potassium [Moles/Vol] 3.9 mmol/L Normal 3.5-5.1 [facility] Comment on above: Performed By: #### L 500.4050, L500.4100 ####[facility] [address] [place], [address] Sodium [Moles/Vol] 140 mmol/L Normal 136-145 [facility] Comment on above: Performed By: #### L 500.4050, L500.4100 ####[facility] [address] [place], [address] T PROT 6.9 g/dL Normal 6.4-8.2 [facility] Comment on above: Performed By: #### L 500.4050, L500.4100 ####[facility] [address] [place], [address] Urea nitrogen [Mass/Vol] 26 mg/dL High 7-18 [facility] Comment on above: Performed By: #### L 500.4050, L500.4100 ####[facility] [address] [place], [place], [address] Estimated glomerular filtrat ion rate (GFR) AmericanOrdered By: Tamir Ross on 04-16-2024 Estimated GFR (MDRD) Amer 32 mL/min Low >60 [facility] Comment on above: GFR Calc Glomerular filtration rate ( GFR) estimationOrdered By: Tamir Ross on 04-16-2024 Estimated GFR (MDRD) Non-Af Amer 26 mL/min Low >60 [facility] Comment on above: Non- GFR Calc Glucose measurementOrdered B y: Tamir Ross on 04-16-2024 Glucose [Mass/Vol] 111 mg/dL High 74-106 [facility] Comment on above: Fasting Glucose resu lt from 100 to 125 mg/dL suggests IMPAIRED HOMEOSTASIS per A.D.A. criteria. High density lipoprotein (HD L) measurementOrdered By: Tamir Ross on 04-16-2024 Cholesterol in HDL [Mass/Vol] 42 mg/dL >40 [facility] Comment on above: The drugs N-Acetylcy steine and Metamizole may falsely depress this assay. Reference Range HDL <40 mg/dL Low HDL Cholesterol HDL >or= 60 mg/dL High HDL Cholesterol Laboratory - Chemistry and C hemistry - challengeOrdered By: Tamir Ross on 04-16-2024 AST [Catalytic activity/Vol] 19 U/L 15-37 [facility] Lipid Profileon 04-16-2024 Cholesterol [Mass/Vol] 227 mg/dL High 200 [facility] Comment on above: Result Comment: <200 mg/dL Desirable 200-240 mg/dL Borderline >240 mg/dL High Risk Performed By: #### L 500.4050, L500.4100 ####[facility] [address] [place], [address] Cholesterol in HDL [Mass/Vol] 42 mg/dL Normal [facility] Comment on above: Result Comment: The drugs N-Acetylcysteine and Metamizole may falsely depress this assay. Reference Range HDL <40 mg/dL Low HDL Cholesterol HDL >or= 60 mg/dL High HDL Cholesterol Performed By: #### L 500.4050, L500.4100 ####[facility] [address] [place], [address] LDL TNP Normal 0-130 [facility] Comment on above: Performed By: #### L 500.4050, L500.4100 ####[facility] [address] [place], [address] Triglyceride [Mass/Vol] 416 mg/dL High [facility] Comment on above: Result Comment: The drugs N-Acetylcysteine and Metamizole may falsely depress this assay. TRIGLYCERIDE IS GREATER THAN 400 mg/dL. LDL RESULT IS INVALID AND WILL NOT BE REPORTED. Serum Triglycerides Reference Interval Normal <150 mg/dL Borderline high 150 - 199 mg/dL High 200 - 499 mg/dL Very High > or = 500 mg/dL Performed By: #### L 500.4050, L500.4100 ####[facility] [address] [place], [address] VLDL TNP Normal 5-40 [facility] Comment on above: Performed By: #### L 500.4050, L500.4100 ####[facility] [address] [place], [address] Low density lipoprotein (LDL ) cholesterol measurementOrdered By: Tamir Ross on 04-16-2024 LDL Cholesterol TNP [facility] Comment on above: Test not performed Potassium measurementOrdered By: Tamir Ross on 04-16-2024 Potassium [Moles/Vol] 3.9 mmol/L 3.5-5.1 [facility] Serum anion gap measurementO rdered By: Tamir Ross on 04-16-2024 Anion gap [Moles/Vol] 8 mmol/L 5-15 [facility] Serum globulin measurementOr dered By: Tamir Ross on 04-16-2024 Globulin (S) [Mass/Vol] 3.6 g/dL 2.2-4.2 [facility] Serum or plasma alanine renee otransferase (ALT) measurementOrdered By: Tamir Ross on 04-16-2024 ALT [Catalytic activity/Vol] 19 U/L 16-61 [facility] Serum or plasma albumin keshia urement (mass/volume)Ordered By: Tamir Ross on 04-16-2024 Albumin [Mass/Vol] 3.3 g/dL 3.2-5.0 [facility] Serum or plasma alkaline pili sphatase measurementOrdered By: Tamir Ross on 04-16-2024 ALP [Catalytic activity/Vol] 125 U/L High 45-117 [facility] Serum or plasma calcium keshia urement (mass/volume)Ordered By: Tamir Ross on 04-16-2024 Calcium [Mass/Vol] 9.1 mg/dL 8.5-10.1 [facility] Serum or plasma cholesterol measurement (mass/volume)Ordered By: Tamir Ross on 04-16-2024 Cholesterol [Mass/Vol] 227 mg/dL High <200 [facility] Comment on above: <200 mg/dL Desirable 200-240 mg/dL Borderline >240 mg/dL High Risk Serum or plasma creatinine m easurement (mass/volume)Ordered By: Tamri Ross on 04-16-2024 Creatinine [Mass/Vol] 2.83 mg/dL High 0.70-1.30 [facility] Comment on above: The validity of the calculated GFR & GFRAA in patients over 70 years has not been determined. Clinical correlation is essential. Serum or plasma urea nitroge n measurement (mass/volume)Ordered By: Tamir Ross on 04-16-2024 Urea nitrogen [Mass/Vol] 26 mg/dL High 7-18 [facility] Sodium levelOrdered By: Tamir Ross on 04-16-2024 Sodium [Moles/Vol] 140 mmol/L 136-145 [facility] Total proteinOrdered By: Indigo Ross on 04-16-2024 Protein [Mass/Vol] 6.9 g/dL 6.4-8.2 [facility] Triglycerides measurementOrd ered By: Tamir Ross on 04-16-2024 Triglyceride [Mass/Vol] 416 mg/dL High <199 [facility] Comment on above: The drugs N-Acetylcy steine and Metamizole may falsely depress this assay. TRIGLYCERIDE IS GREATER THAN 400 mg/dL. LDL RESULT IS INVALID AND WILL NOT BE REPORTED.Serum Triglycerides Reference Interval Normal <150 mg/dL Borderline high 150 - 199 mg/dL High 200 - 499 mg/dL Very High > or = 500 mg/dL Very low density lipoprotein (VLDL) cholesterol measurementOrdered By: Tamir Ross on 04-16-2024 VLDL Cholesterol TNP [facility] Comment on above: Test not performed Protein+Creatinine Ratio,Uri neon 01-06-2024 PROT:CRE RATIO Normal 0-200 [facility] Comment on above: Result Comment: NOT NEEDED Performed By: #### L 500.3600, L501.0900 ####[facility] [address] [place], [address] PROTEIN,UR.RAN. Normal <11.9 [facility] Comment on above: Result Comment: NOT NEEDED Performed By: #### L 500.3600, L501.0900 ####[facility] [address] [place], [address] UR CREAT Normal NO RANGE EST. [facility] Comment on above: Result Comment: NOT NEEDED Performed By: #### L 500.3600, L501.0900 ####[facility] [address] [place], [address] Renal Profileon 01-06-2024 Albumin [Mass/Vol] 3.4 g/dL Normal 3.2-5.0 [facility] Comment on above: Performed By: #### L 500.3600, L501.0900 ####[facility] [address] [place], [address] BUN/CRE 9.6 RATIO Low 10-20 [facility] Comment on above: Performed By: #### L 500.3600, L501.0900 ####[facility] [address] [place], [address] CA,Total 9.5 mg/dL Normal 8.5-10.1 [facility] Comment on above: Performed By: #### L 500.3600, L501.0900 ####[facility] [address] [place], [address] Chloride [Moles/Vol] 105 mmol/L Normal 98-107 [facility] Comment on above: Performed By: #### L 500.3600, L501.0900 ####[facility] [address] [place], [address] CO2 [Moles/Vol] 28.0 mmol/L Normal 21.0-32.0 [facility] Comment on above: Performed By: #### L 500.3600, L501.0900 ####[facility] [address] [place], [address] Creatinine [Mass/Vol] 3.03 mg/dL High 0.70-1.30 [facility] Comment on above: Result Comment: The validity of the calculated GFR GFRAA in patients over 70 years has not been determined. Clinical correlation is essential. Performed By: #### L 500.3600, L501.0900 ####[facility] [address] [place], [address] EST GFR - AA 30 mL/min Low >60 [facility] Comment on above: Result Comment: Afri can Bulgarian GFR Calc Performed By: #### L 500.3600, L501.0900 ####[facility] [address] [place], [address] GFR/1.73 sq M.predicted among non-blacks MDRD (S/P/Bld) [Vol rate/Area] 24 mL/min/{1.73_m2} Low >60 [facility] Comment on above: Result Comment: Non- GFR Calc Performed By: #### L 500.3600, L501.0900 ####[facility] [address] [place], [address] Glucose [Mass/Vol] 117 mg/dL High 74-106 [facility] Comment on above: Result Comment: Fast ing Glucose result from 100 to 125 mg/dL suggests IMPAIRED HOMEOSTASIS per A.D.A. criteria. Performed By: #### L 500.3600, L501.0900 ####[facility] [address] [place], [address] Phosphate [Mass/Vol] 3.1 mg/dL Normal 2.5-4.9 [facility] Comment on above: Performed By: #### L 500.3600, L501.0900 ####[facility] [address] [place], [address] Potassium [Moles/Vol] 4.7 mmol/L Normal 3.5-5.1 [facility] Comment on above: Performed By: #### L 500.3600, L501.0900 ####[facility] [address] [place], [address] Sodium [Moles/Vol] 138 mmol/L Normal 136-145 [facility] Comment on above: Performed By: #### L 500.3600, L501.0900 ####[facility] [address] [place], [address] Urea nitrogen [Mass/Vol] 29 mg/dL High 7-18 [facility] Comment on above: Performed By: #### L 500.3600, L501.0900 ####[facility] [address] [place], [address] CNPNon 12-09-2023 CNPN Telephone ([facility] [facility]) WILTON QUIROZ ([id number]) 1985 M Date Time Provider Department 12/09/23 JONO CORTEZ OPHTSK During your visit today, we recorded the following information about you: GuilhermeChanell 12/09/2023 3:58 PM Signed Pt signed release to obtain records from [facility]. Form placed in [facility] MURPHY Paula Bautista 12/11/2023 1:05 PM Signed Records request faxed to [facility] at . Confirmation fax received. Paula Bautista December 11, 2023 1:04 PM Paula Bautista 02/19/2024 10:14 AM Signed Records request faxed to [facility] at . Confirmation fax received. Paula Bautista February 19, 2024 10:14 AM Allergies As of Date: 12/09/2023 (No Known Allergies) Date Reviewed: 12/09/2023 Reviewed by: Jono Cortez MD - Fully Assessed Reason for Visit: Request Outside Medical Records [[id number]] Prescriptions as of 02/19/2024 - FARXIGA 10 mg tablet Take 1 tablet by mouth every afternoon. - amLODIPine (NORVASC) 5 mg tablet Take 1 tablet by mouth every afternoon. - atorvastatin (LIPITOR) 40 mg tablet Take 40 mg by mouth daily at bedtime. - cloNIDine HCl (CATAPRES) 0.1 mg tablet Take 1 tablet by mouth every 12 hours. - hydrALAZINE (APRESOLINE) 50 mg tablet - isosorbide dinitrate (ISORDIL) 20 mg tablet - losartan (COZAAR) 50 mg tablet Take 1 tablet by mouth every 12 hours. - metoprolol tartrate, short acting, (LOPRESSOR) 25 mg tablet Take 1 tablet by mouth every 12 hours. - pantoprazole DR (PROTONIX) 40 mg tablet Take 1 tablet by mouth every afternoon. Meds Comments as of 12/09/2023: 12/09/23 The medications are managed by this patient by: PATIENT Lindsey Sun, OA Problem List As Of Date: 12/09/2023 (None) Encounter Status:Closed by CHANELL VANEGAS on 12/09/23 Normal [facility] Protein+Creatinine Ratio,Uri neon 11-29-2023 PROT:CRE RATIO 1667 mg/g CRE High 0-200 [facility] Comment on above: Performed By: #### L 501.0900, L500.3600 #### [facility] [address] [place], [address] Protein (U) [Mass/Vol] 93.7 mg/dL High <11.9 [facility] Comment on above: Performed By: #### L 501.0900, L500.3600 #### [facility] [address] [place], [address] UR CREAT 56.20 mg/dL Normal NO RANGE EST. [facility] Comment on above: Performed By: #### L 501.0900, L500.3600 #### [facility] [address] [place], [address] Renal Profileon 11-29-2023 Albumin [Mass/Vol] 3.4 g/dL Normal 3.2-5.0 [facility] Comment on above: Performed By: #### L 501.0900, L500.3600 ####[facility] [address] [place], [address] BUN/CRE 10.2 RATIO Normal 10-20 [facility] Comment on above: Performed By: #### L 501.0900, L500.3600 ####[facility] [address] [place], [address] CA,Total 9.3 mg/dL Normal 8.5-10.1 [facility] Comment on above: Performed By: #### L 501.0900, L500.3600 ####[facility] [address] [place], [address] Chloride [Moles/Vol] 105 mmol/L Normal 98-107 [facility] Comment on above: Performed By: #### L 501.0900, L500.3600 ####[facility] [address] [place], [address] CO2 [Moles/Vol] 27.0 mmol/L Normal 21.0-32.0 [facility] Comment on above: Performed By: #### L 501.0900, L500.3600 ####[facility] [address] [place], [address] Creatinine [Mass/Vol] 3.04 mg/dL High 0.70-1.30 [facility] Comment on above: Result Comment: The validity of the calculated GFR GFRAA in patients over 70 years has not been determined. Clinical correlation is essential. Performed By: #### L 501.0900, L500.3600 ####[facility] [address] [place], [address] EST GFR - AA 30 mL/min Low >60 [facility] Comment on above: Result Comment: Afri can Bulgarian GFR Calc Performed By: #### L 501.0900, L500.3600 ####[facility] [address] [place], [address] GFR/1.73 sq M.predicted among non-blacks MDRD (S/P/Bld) [Vol rate/Area] 24 mL/min/{1.73_m2} Low >60 [facility] Comment on above: Result Comment: Non- GFR Calc Performed By: #### L 501.0900, L500.3600 ####[facility] [address] [place], [address] Glucose [Mass/Vol] 107 mg/dL High 74-106 [facility] Comment on above: Result Comment: Fast ing Glucose result from 100 to 125 mg/dL suggests IMPAIRED HOMEOSTASIS per A.D.A. criteria. Performed By: #### L 501.0900, L500.3600 ####[facility] [address] [place], [address] Phosphate [Mass/Vol] 3.1 mg/dL Normal 2.5-4.9 [facility] Comment on above: Performed By: #### L 501.0900, L500.3600 ####[facility] [address] [place], [address] Potassium [Moles/Vol] 4.3 mmol/L Normal 3.5-5.1 [facility] Comment on above: Performed By: #### L 501.0900, L500.3600 ####[facility] [address] [place], [address] Sodium [Moles/Vol] 139 mmol/L Normal 136-145 [facility] Comment on above: Performed By: #### L 501.0900, L500.3600 ####[facility] [address] [place], [address] Urea nitrogen [Mass/Vol] 31 mg/dL High 7-18 [facility] Comment on above: Performed By: #### L 501.0900, L500.3600 ####[facility] [address] [place], [address] Basic Metabolic Profile (BMP )on 11-08-2023 BUN/CRE 8.1 RATIO Low 10-20 [facility] Comment on above: Performed By: #### L 500.2500, L100.0100 #### [facility] [address] [place], [address] CA,Total 8.9 mg/dL Normal 8.5-10.1 [facility] Comment on above: Performed By: #### L 500.2500, L100.0100 #### [facility] [address] [place], [address] Chloride [Moles/Vol] 109 mmol/L High 98-107 [facility] Comment on above: Performed By: #### L 500.2500, L100.0100 #### [facility] [address] [place], [address] CO2 [Moles/Vol] 25.0 mmol/L Normal 21.0-32.0 [facility] Comment on above: Performed By: #### L 500.2500, L100.0100 #### [facility] [address] [place], [address] Creatinine [Mass/Vol] 2.71 mg/dL High 0.70-1.30 [facility] Comment on above: Result Comment: The validity of the calculated GFR GFRAA in patients over 70 years has not been determined. Clinical correlation is essential. Performed By: #### L 500.2500, L100.0100 #### [facility] [address] [place], [address] ECRCL 50.35 ml/min Normal [facility] Comment on above: Performed By: #### L 500.2500, L100.0100 #### [facility] [address] [place], [address] EST GFR - AA 34 mL/min Low >60 [facility] Comment on above: Result Comment: Afri can Bulgarian GFR Calc Performed By: #### L 500.2500, L100.0100 #### [facility] [address] [place], [address] GAP 6 Normal 5-15 [facility] Comment on above: Performed By: #### L 500.2500, L100.0100 #### [facility] [address] [place], [address] GFR/1.73 sq M.predicted among non-blacks MDRD (S/P/Bld) [Vol rate/Area] 28 mL/min/{1.73_m2} Low >60 [facility] Comment on above: Result Comment: Non- GFR Calc Performed By: #### L 500.2500, L100.0100 #### [facility] [address] [place], [address] Glucose [Mass/Vol] 144 mg/dL High 74-106 [facility] Comment on above: Result Comment: Fast ing Glucose result greater than or equal to 126 mg/dL suggests DIABETES MELLITUS per A.D.A. criteria. Performed By: #### L 500.2500, L100.0100 #### [facility] [address] [place], [address] Potassium [Moles/Vol] 3.8 mmol/L Normal 3.5-5.1 [facility] Comment on above: Performed By: #### L 500.2500, L100.0100 #### [facility] [address] [place], [address] Sodium [Moles/Vol] 140 mmol/L Normal 136-145 [facility] Comment on above: Performed By: #### L 500.2500, L100.0100 #### [facility] [address] [place], [address] Urea nitrogen [Mass/Vol] 22 mg/dL High 7-18 [facility] Comment on above: Performed By: #### L 500.2500, L100.0100 #### [facility] [address] [place], [address] Brain/Head without Contrasto n 11-08-2023 Brain/Head without Contrast [facility] Imaging Services [address] [place] [address] Brain/Head without Contrast MR#: [id number] Acct: [id number] Name: WILTON QUIROZ Rep #: [id number] : 1985 M 38 From: Misha drew MD PCP: Dr. Tamir Ross MD Status: REG ER Study: Brain/Head without Contrast Date of Exam: 10/14 10/06 Exam# [id number] Ordering Dr: Christian Burch MD [id number] STUDY: CT BRAIN WITHOUT CONTRAST REASON FOR EXAM: Male, 38 years old. papilledema, R eye visual disturbance RADIATION DOSAGE (If Supplied By Facility): CTDIvol = ( 44.99 ) mGy, DLP = ( 863.60 ) mGycm TECHNIQUE: Transaxial CT imaging of the brain was performed without administration of intravenous contrast material. Individualized dose optimization techniques were used for this CT. COMPARISON: 04/20/2023 FINDINGS: Normal soft tissue structures. Normal calvarium. Normal size ventricles and extra-axial spaces for the patient''s age. Normal white matter tracts of the cerebral hemispheres. Normal basal ganglia and thalami. Normal brainstem. Normal cerebellum. There is no intracranial hemorrhage. There are no findings of an acute ischemic infarction. Normal visualized paranasal sinuses. CT/Brain/Head without Contrast IMPRESSION: Normal unenhanced CT scan of the brain. Electronically Signed: Misha Nicole MD at 22:20 EDT , CC: Dr. Christian Burch MD; Dr. Tamir Ross MD Surgical Instrument Maker: Signed Normal [facility] CBC W/Diff, Automatedon 10-14 Absolute Lymph 2.57 X10 3/uL Normal 0.83-4.51 [facility] Comment on above: Performed By: #### L 500.2500, L100.0100 #### [facility] [address] [place], [address] Absolute Neut 5.6 X10 3/uL Normal 2.0-7.7 [facility] Comment on above: Performed By: #### L 500.2500, L100.0100 #### [facility] [address] [place], [address] Basophils/100 WBC (Bld) 0.8 % Normal 0-1 [facility] Comment on above: Performed By: #### L 500.2500, L100.0100 #### [facility] [address] [place], [address] Eosinophils/100 WBC (Bld) 4.6 % Normal 0-5 [facility] Comment on above: Performed By: #### L 500.2500, L100.0100 #### [facility] [address] [place], [address] Erythrocyte distribution width (RBC) [Ratio] 13.7 % Normal 11.6-14.6 [facility] Comment on above: Performed By: #### L 500.2500, L100.0100 #### [facility] [address] [place], [address] Hematocrit (Bld) [Volume fraction] 46.9 % Normal 40-54 [facility] Comment on above: Performed By: #### L 500.2500, L100.0100 #### [facility] [address] [place], [address] Hemoglobin (Bld) [Mass/Vol] 15.9 g/dL Normal 13.0-16.5 [facility] Comment on above: Performed By: #### L 500.2500, L100.0100 #### [facility] [address] [place], [address] IG% 0.700 Normal 0.0-0.9 [facility] Comment on above: Result Comment: IG% - Immature Granulocytes (promyelocytes, myelocytes and metamyelocytes) > 1% indicates that a LEFT SHIFT is Present. Performed By: #### L 500.2500, L100.0100 #### [facility] [address] [place], [address] Lymphocytes/100 WBC (Bld) 25.8 % Normal 19-41 [facility] Comment on above: Performed By: #### L 500.2500, L100.0100 #### [facility] [address] [place], [address] MCH (RBC) [Entitic mass] 28.6 pg Normal 27.0-32.0 [facility] Comment on above: Performed By: #### L 500.2500, L100.0100 #### [facility] [address] [place], [address] MCHC (RBC) [Mass/Vol] 33.9 g/dL Normal 32-36 [facility] Comment on above: Performed By: #### L 500.2500, L100.0100 #### [facility] [address] [place], [address] MCV (RBC) [Entitic vol] 84.4 fL Normal 80-94 [facility] Comment on above: Performed By: #### L 500.2500, L100.0100 #### [facility] [address] [place], [address] Monocytes/100 WBC (Bld) 12.1 % High 0-10 [facility] Comment on above: Performed By: #### L 500.2500, L100.0100 #### [facility] [address] [place], [address] Neutrophils/100 WBC (Bld) 56.0 % Normal 47-70 [facility] Comment on above: Performed By: #### L 500.2500, L100.0100 #### [facility] [address] [place], [address] Nucleated RBC (Bld) [#/Vol] 0 10*3/uL Normal 0-5 [facility] Comment on above: Performed By: #### L 500.2500, L100.0100 #### [facility] [address] [place], [address] Platelet mean volume (Bld) [Entitic vol] 10.7 fL Normal 6.2-12.0 [facility] Comment on above: Performed By: #### L 500.2500, L100.0100 #### [facility] [address] [place], [address] Platelets (Bld) [#/Vol] 274 10*3/uL Normal 150-450 [facility] Comment on above: Performed By: #### L 500.2500, L100.0100 #### [facility] [address] [place], [address] RBC (Bld) [#/Vol] 5.56 10*6/uL Normal 4.6-6.2 [facility] Comment on above: Performed By: #### L 500.2500, L100.0100 #### [facility] [address] [place], [address] RDW SD 42.5 fl Normal 35.1-43.9 [facility] Comment on above: Performed By: #### L 500.2500, L100.0100 #### [facility] [address] [place], [address] WBC (Bld) [#/Vol] 10.0 10*3/uL Normal 4.4-11.0 [facility] Comment on above: Performed By: #### L 500.2500, L100.0100 #### [facility] [address] [place], [address] Emergency Department Summary on 11-08-2023 Emergency Department Summary [facility] Medical Records Department [address] [place] [address] Emergency Department Summary 11/08/23 MR#: [id number] Acct: [id number] Name: WILTON QUIROZ Rep #: [id number] : 1985 38 From: Christian Burch MD PCP: Dr. Tamir Ross MD Status:DEP ER Location: ED HPI History of Present Illness Chief Complaint: Eye Problem Informant: patient Narrative Narrative: 38-year-old male presenting after [address] that his brand representative told him to come to the ER to get today. He was diagnosed with papilledema today. He states he saw an line cook a week ago because of visual disturbances in his right eye that he has been having for several weeks who looked at his eye and referred him to an brand representative, and he saw them today. It was not here in this area but this is where he lives. He has chronic renal problems and hypertension. He is on multiple medications for these things. He follows with Dr. Marge Feldman for renal. He states he started a new job recently, he is on multiple medications for blood pressure and he stopped the isosorbide for several months because he did not like the way it made him feel and it was making him have trouble focusing at work. Now he is taking it again and his other medications as he is supposed to, at least for several weeks. He denies any headaches, vision loss, left eye symptoms, peripheral neurologic symptoms, recent illness, or trouble walking or being off balance/dizzy. When asking all his questions patient states he is just here to get the CT that was recommended for him. [facility] Medical History High cholesterol GERD (gastroesophageal reflux disease) Essential (primary) hypertension Acute enteritis CKD (chronic kidney disease) stage 3, GFR 30-59 ml/min Home Medications ???Medication ???Instructions ???Recorded ???Last Taken ???Type atorvastatin 40 mg tablet 40 mg PO QHS #30 tabs 06/07/20 Unknown Rx pantoprazole 40 mg tablet,delayed 40 mg PO DAILY #30 tabs 06/07/20 Unknown Rx release clonidine HCl 0.1 mg tablet 0.1 mg PO Q12H 06/29/20 07/11/20 History isosorbide dinitrate 20 mg tablet 20 tablet PO DAILY 06/29/20 07/11/20 History hydralazine 100 mg tablet 50 mg PO TID 07/11/20 07/11/20 History losartan 50 mg tablet 50 mg PO BID 11/08/23 Unknown History metoprolol tartrate 25 mg tablet 25 mg PO BID 11/08/23 Unknown History Allergy/AdvReac Type Severity Reaction Status Date / Time No Known Allergies Allergy Verified 11/08/23 21:06 Surgical History History of left heart catheterization (06/06/20) Social History Smoking Status: Never smoker alcohol intake: current alcohol intake frequency: holidays/special occasions only ROS ROS ED Constitutional Constitutional ED: Denies chills or fever(s) Eyes Eyes: Reports as per HPI and change in vision; Denies diplopia ENT ENT ED: Denies dizziness, rhinorrhea or sore throat Cardiovascular Cardiovascular: Denies chest pain or palpitations Respiratory/Chest Respiratory/Chest: Denies cough or dyspnea Gastrointestinal Gastrointestinal: Denies abdominal pain, diarrhea, nausea or vomiting Genitourinary Genitourinary ED: Denies dysuria or hematuria Musculoskeletal Musculoskeletal: Denies back pain or neck pain Integumentary Denies abscess or rash Neurologic Neurologic: Denies headache(s), paresthesias or weakness Psychiatric Psychiatric: Denies suicidal thoughts EXAM Physical Exam Const Vital Signs: 11/08/23 21:05 11/08/23 21:05 Temperature 97.9 F Temperature Source Temporal Pulse Rate 79 76 Respiratory Rate 14 14 Blood Pressure 201/131 H 210/121 H Blood Pressure Mean 154 150 Pulse Ox 96 96 Oxygen Delivery Method Room Air Room Air Positive well nourished and well developed General Appearance ED: well developed and NAD HEENT Reports moist mucous membranes normocephalic and atraumatic Eyes PERRL and EOMs intact bilaterally Eyes Narrative: Visual griffin all intact Neck full ROM and supple Resp normal respiratory effort and clear to auscultation bilaterally Cardio regular rate, regular rhythm and no murmurs GI non-tender and non-distended Auscultation: normoactive bowel sounds Palpation: soft Back/Spine no CVA tenderness General Back: other FROM Extremity normal to inspection General Extremety ED: Negative for edema, pulses abnormal or tenderness General Extremity: Negative for edema or pulses abnormal Neuro oriented x3, CN's II-XII intact bilaterally and no sensory deficits noted Neuro Narrative: Normal wycvcm-fq-xvve and knuo-wc-ptsl bilaterally. Normal gait. Normal speech. Sensorium (more content not included)... Normal [facility] FUNDUS PHOTOS OU (BOTH EYES) on 11-08-2023 [facility] Radiology Study observation (narrative) [facility] OCT OPTIC NERVE CIRRUS OU (B OTH EYES)on 11-08-2023 [facility] Radiology Study observation (narrative) [facility] CNPNon 11-04-2023 CNPN Telephone (OPHTMN) WILTON QUIROZ ([id number]) 1985 M Date Time Provider Department 11/04/23 EFRA PANDEY During your visit today, we recorded the following information about you: Bronson ZabalaYessi 11/04/2023 12:[address] Taylor office calling [phone] referring patient for papilledema likely secondary to hypertension Asked them to fax over exam notes and then Dr. Pandey will review and advise. They asked we call the patient to schedule Allergies As of Date: 11/04/2023 (Not on File) Date Reviewed: Never Reviewed Reason for Visit: Appointment [186] Prescriptions as of 11/14/2023 - amLODIPine (NORVASC) 5 mg tablet Take 1 tablet by mouth every afternoon. - atorvastatin (LIPITOR) 40 mg tablet Take 40 mg by mouth daily at bedtime. - cloNIDine HCl (CATAPRES) 0.1 mg tablet Take 1 tablet by mouth every 12 hours. - hydrALAZINE (APRESOLINE) 50 mg tablet - isosorbide dinitrate (ISORDIL) 20 mg tablet - losartan (COZAAR) 50 mg tablet Take 1 tablet by mouth every 12 hours. - metoprolol tartrate, short acting, (LOPRESSOR) 25 mg tablet Take 1 tablet by mouth every 12 hours. - pantoprazole DR (PROTONIX) 40 mg tablet Take 1 tablet by mouth every afternoon. Problem List As Of Date: 11/04/2023 (None) Encounter Status:Closed by YESSI ROJO on 11/14/23 Normal [facility] Basophil percentageOrdered B y: Tamir Ross on 04-04-2023 Chloride [Moles/Vol] 109 mmol/L 98-107 [facility] Glucose [Mass/Vol] 91 mg/dL 74-106 [facility] Potassium [Moles/Vol] 4.3 mmol/L 3.5-5.1 [facility] Sodium [Moles/Vol] 142 mmol/L 136-145 [facility] Laboratory - Chemistry and C hemistry - challengeOrdered By: Tamir Ross on 04-04-2023 CO2 [Moles/Vol] 25.0 mmol/L 21.0-32.0 [facility] Urea nitrogen/Creatinine [Mass ratio] 10.8 mg/mg 10-20 [facility] No Panel InformationOrdered By: Tamir Ross on 04-04-2023 Estimated GFR (MDRD) Amer 43 mL/min >60 [facility] Comment on above: GFR Calc Estimated GFR (MDRD) Non-Af Amer 35 mL/min >60 [facility] Comment on above: Non- GFR Calc Thyroid Stimulating Hormone (TSH) 1.69 uIU/mL 0.358-3.74 [facility] Serum or plasma calcium keshia urement (mass/volume)Ordered By: Tamir Ross on 04-04-2023 Calcium [Mass/Vol] 9.3 mg/dL 8.5-10.1 [facility] Serum or plasma creatinine m easurement (mass/volume)Ordered By: Tamir Ross on 04-04-2023 Creatinine [Mass/Vol] 2.22 mg/dL 0.70-1.30 [facility] Comment on above: The validity of the calculated GFR & GFRAA in patients over 70 years has not been determined. Clinical correlation is essential. Serum or plasma urea nitroge n measurement (mass/volume)Ordered By: Tamir Ross on 04-04-2023 Urea nitrogen [Mass/Vol] 24 mg/dL 7-18 [facility] Thin prep Papanicolaou smear with manual screeningOrdered By: Tamir Ross on 04-04-2023 Thin prep Papanicolaou smear with manual screening 8 5-15 [facility] 24 hour urine protein measur ement (mass/time)Ordered By: Marge Feldman on 01-04-2023 Protein (24H U) [Mass/Time] 1472.0 mg/24HR 0-151 [facility] 24 hour urine protein measur ement (mass/volume)Ordered By: Marge Feldman on 01-04-2023 Protein (24H U) [Mass/Vol] 46.0 mg/dL 0.0-11.8 [facility] Basophil percentageOrdered B y: Marge Feldman on 01-04-2023 Basophil percentage 3.1 mg/dL 2.5-4.9 [facility] Chloride [Moles/Vol] 110 mmol/L 98-107 [facility] Cholesterol [Mass/Vol] 155 mg/dL <200 [facility] Comment on above: <200 mg/dL Desirable 200-240 mg/dL Borderline >240 mg/dL High Risk Glucose [Mass/Vol] 104 mg/dL 74-106 [facility] Comment on above: Fasting Glucose resu lt from 100 to 125 mg/dL suggests IMPAIRED HOMEOSTASIS per A.D.A. criteria. Potassium [Moles/Vol] 4.3 mmol/L 3.5-5.1 [facility] Sodium [Moles/Vol] 141 mmol/L 136-145 [facility] Triglyceride [Mass/Vol] 88 mg/dL <199 [facility] Comment on above: The drugs N-Acetylcy steine and Metamizole may falsely depress this assay.Serum Triglycerides Reference Interval Normal <150 mg/dL Borderline high 150 - 199 mg/dL High 200 - 499 mg/dL Very High > or = 500 mg/dL Creatinine clearanceOrdered By: Marge Feldman on 01-04-2023 Creatinine renal clearance Unsp time (U+S/P) [Vol/Time] 73 ml/min 100-200 [facility] Laboratory - Chemistry and C hemistry - challengeOrdered By: Marge Feldman on 01-04-2023 CO2 [Moles/Vol] 30.0 mmol/L 21.0-32.0 [facility] Urea nitrogen/Creatinine [Mass ratio] 9.3 mg/mg 10-20 [facility] Laboratory - Specimen inform ationOrdered By: Marge Feldman on 01-04-2023 Collection duration (U) 24.0 HOURS 24.0-24.0 [facility] Comment on above: *Additional results available. Contact laboratory/see report* No Panel InformationOrdered By: Marge Feldman on 01-04-2023 Estimated GFR (MDRD) Amer 44 mL/min >60 [facility] Comment on above: GFR Calc Estimated GFR (MDRD) Non-Af Amer 36 mL/min >60 [facility] Comment on above: Non- GFR Calc Timed Urine Volume 3200 mL [facility] Comment on above: *Additional results available. Contact laboratory/see report* Serum or plasma albumin keshia urement (mass/volume)Ordered By: Marge Feldman on 01-04-2023 Albumin [Mass/Vol] 3.7 g/dL 3.2-5.0 [facility] Serum or plasma calcium keshia urement (mass/volume)Ordered By: Marge Feldman on 01-04-2023 Calcium [Mass/Vol] 9.3 mg/dL 8.5-10.1 [facility] Serum or plasma cholesterol in HDL measurement (mass/volume)Ordered By: Marge Feldman on 01-04-2023 Cholesterol in HDL [Mass/Vol] 59 mg/dL >40 [facility] Comment on above: The drugs N-Acetylcy steine and Metamizole may falsely depress this assay. Reference Range HDL <40 mg/dL Low HDL Cholesterol HDL >or= 60 mg/dL High HDL Cholesterol Serum or plasma cholesterol in VLDL measurement (mass/volume)Ordered By: Marge Feldman on 01-04-2023 Cholesterol in VLDL [Mass/Vol] 18 mg/dL 5-40 [facility] Serum or plasma creatinine m easurement (mass/volume)Ordered By: Marge Feldman on 01-04-2023 Creatinine [Mass/Vol] 2.16 mg/dL 0.70-1.30 [facility] Comment on above: The validity of the calculated GFR & GFRAA in patients over 70 years has not been determined. Clinical correlation is essential. Serum or plasma low density lipoprotein (LDL) cholesterol measurement (mass/volume)Ordered By: Marge Feldman on 01-04-2023 Cholesterol in LDL [Mass/Vol] 78 mg/dL 0-130 [facility] Serum or plasma urea nitroge n measurement (mass/volume)Ordered By: Marge Feldman on 01-04-2023 Urea nitrogen [Mass/Vol] 20 mg/dL 7-18 [facility] Urine creatinine measurement (mass/volume)Ordered By: Marge Feldman on 01-04-2023 Creatinine (U) [Mass/Vol] 70.5 mg/dL NO RANGE EST. [facility] Basophil percentageOrdered B y: Marge Feldman on 10-24-2022 Basophil percentage 2.6 mg/dL 2.5-4.9 [facility] Chloride [Moles/Vol] 103 mmol/L 98-107 [facility] Glucose [Mass/Vol] 92 mg/dL 74-106 [facility] Potassium [Moles/Vol] 3.8 mmol/L 3.5-5.1 [facility] Sodium [Moles/Vol] 138 mmol/L 136-145 [facility] Laboratory - Chemistry and C hemistry - challengeOrdered By: Marge Feldman on 10-24-2022 CO2 [Moles/Vol] 30.0 mmol/L 21.0-32.0 [facility] Urea nitrogen/Creatinine [Mass ratio] 10.2 mg/mg 10-20 [facility] No Panel InformationOrdered By: Marge Feldman on 10-24-2022 Estimated GFR (MDRD) Amer 47 mL/min >60 [facility] Comment on above: GFR Calc Estimated GFR (MDRD) Non-Af Amer 39 mL/min >60 [facility] Comment on above: Non- GFR Calc Serum or plasma albumin keshia urement (mass/volume)Ordered By: Marge Feldman on 10-24-2022 Albumin [Mass/Vol] 3.6 g/dL 3.2-5.0 [facility] Serum or plasma calcium keshia urement (mass/volume)Ordered By: Marge Feldman on 10-24-2022 Calcium [Mass/Vol] 9.5 mg/dL 8.5-10.1 [facility] Serum or plasma creatinine m easurement (mass/volume)Ordered By: Marge Feldman on 10-24-2022 Creatinine [Mass/Vol] 2.05 mg/dL 0.70-1.30 [facility] Comment on above: The validity of the calculated GFR & GFRAA in patients over 70 years has not been determined. Clinical correlation is essential. Serum or plasma urea nitroge n measurement (mass/volume)Ordered By: Marge Feldman on 10-24-2022 Urea nitrogen [Mass/Vol] 21 mg/dL 7-18 [facility] Urine creatinine measurement (mass/volume)Ordered By: Marge Feldman on 10-24-2022 Creatinine (U) [Mass/Vol] 64.50 mg/dL NO RANGE EST. [facility] Urine protein measurement (m ass/volume)Ordered By: Marge Feldman on 10-24-2022 Protein (U) [Mass/Vol] 135.9 mg/dL 0.0-11.8 [facility] Urine protein/creatinine mas s ratioOrdered By: Marge Feldman on 10-24-2022 Protein/Creatinine (U) [Mass ratio] 2107 mg/g CRE 0-200 [facility] Basophil percentageon 2021 Basophil percentage 2.9 mg/dL 2.5-4.9 [facility] Work Phone: [phone] Chloride [Moles/Vol] 105 mmol/L 98-107 [facility] Work Phone: Glucose [Mass/Vol] 94 mg/dL 74-106 [facility] Work Phone: [phone] Potassium [Moles/Vol] 4.1 mmol/L 3.5-5.1 [facility] Work Phone: [phone] Sodium [Moles/Vol] 138 mmol/L 136-145 [facility] Work Phone: [phone] Laboratory - Chemistry and C hemistry - challengeon 02-07-2022 CO2 [Moles/Vol] 29.0 mmol/L 21.0-32.0 [facility] Work Phone: Urea nitrogen/Creatinine [Mass ratio] 9.8 mg/mg 10-20 [facility] Work Phone: No Panel Informationon 02-07 Estimated GFR (MDRD) Amer 44 mL/min >60 [facility] Work Phone: Comment on above: GFR Calc Estimated GFR (MDRD) Non-Af Amer 37 mL/min >60 [facility] Work Phone: Comment on above: Non- GFR Calc Serum or plasma albumin keshia urement (mass/volume)on 02-07-2022 Albumin [Mass/Vol] 3.7 g/dL 3.2-5.0 [facility] Work Phone: Serum or plasma calcium keshia urement (mass/volume)on 02-07-2022 Calcium [Mass/Vol] 9.1 mg/dL 8.5-10.1 [facility] Work Phone: Serum or plasma creatinine m easurement (mass/volume)on 02-07-2022 Creatinine [Mass/Vol] 2.15 mg/dL 0.70-1.30 [facility] Work Phone: Comment on above: The validity of the calculated GFR & GFRAA in patients over 70 years has not been determined. Clinical correlation is essential. Serum or plasma urea nitroge n measurement (mass/volume)on 02-07-2022 Urea nitrogen [Mass/Vol] 21 mg/dL 7-18 [facility] Work Phone: Urine creatinine measurement (mass/volume)on 02-07-2022 Creatinine (U) [Mass/Vol] 15.40 mg/dL NO RANGE EST. [facility] Work Phone: Urine protein measurement (m ass/volume)on 02-07-2022 Protein (U) [Mass/Vol] mg/dL 0.0-11.8 [facility] Work Phone: Urine protein/creatinine mas s ratioon 02-07-2022 Protein/Creatinine (U) [Mass ratio] 383 mg/g CRE 0-200 [facility] Work Phone: Basophil percentageon 2021 Chloride [Moles/Vol] 110 mmol/L 98-107 [facility] Work Phone: Glucose [Mass/Vol] 116 mg/dL 74-106 [facility] Work Phone: Comment on above: Fasting Glucose resu lt from 100 to 125 mg/dL suggests IMPAIRED HOMEOSTASIS per A.D.A. criteria. Potassium [Moles/Vol] 4.0 mmol/L 3.5-5.1 [facility] Work Phone: Sodium [Moles/Vol] 139 mmol/L 136-145 [facility] Work Phone: Laboratory - Chemistry and C hemistry - challengeon 07-18-2021 CO2 [Moles/Vol] 25.0 mmol/L 21.0-32.0 [facility] Work Phone: Urea nitrogen/Creatinine [Mass ratio] 8.3 mg/mg 10-20 [facility] Work Phone: No Panel Informationon 07-18 Estimated GFR (MDRD) Amer 42 mL/min >60 [facility] Work Phone: Comment on above: GFR Calc Estimated GFR (MDRD) Non-Af Amer 34 mL/min >60 [facility] Work Phone: Comment on above: Non- GFR Calc Serum or plasma calcium keshia urement (mass/volume)on 07-18-2021 Calcium [Mass/Vol] 9.2 mg/dL 8.5-10.1 [facility] Work Phone: Serum or plasma creatinine m easurement (mass/volume)on 07-18-2021 Creatinine [Mass/Vol] 2.28 mg/dL 0.70-1.30 [facility] Work Phone: Comment on above: The validity of the calculated GFR & GFRAA in patients over 70 years has not been determined. Clinical correlation is essential. Serum or plasma urea nitroge n measurement (mass/volume)on 07-18-2021 Urea nitrogen [Mass/Vol] 19 mg/dL 7-18 [facility] Work Phone: Thin prep Papanicolaou smear with manual screeningon 07-18-2021 Thin prep Papanicolaou smear with manual screening 4 5-15 [facility] Work Phone: Basophil percentageon 2021 Basophil percentage 3.0 mg/dL 2.5-4.9 [facility] Work Phone: [phone] Chloride [Moles/Vol] 105 mmol/L 98-107 [facility] Work Phone: Glucose [Mass/Vol] 96 mg/dL 74-106 [facility] Work Phone: Potassium [Moles/Vol] 3.9 mmol/L 3.5-5.1 [facility] Work Phone: Sodium [Moles/Vol] 141 mmol/L 136-145 [facility] Work Phone: Laboratory - Chemistry and C hemistry - challengeon 06-06-2021 CO2 [Moles/Vol] 28.0 mmol/L 21.0-32.0 [facility] Work Phone: Urea nitrogen/Creatinine [Mass ratio] 8.8 mg/mg 10-20 [facility] Work Phone: No Panel Informationon 06-06 Estimated GFR (MDRD) Amer 47 mL/min >60 [facility] Work Phone: Comment on above: GFR Calc Estimated GFR (MDRD) Non-Af Amer 39 mL/min >60 [facility] Work Phone: Comment on above: Non- GFR Calc Serum or plasma albumin keshia urement (mass/volume)on 06-06-2021 Albumin [Mass/Vol] 3.6 g/dL 3.2-5.0 [facility] Work Phone: Serum or plasma calcium keshia urement (mass/volume)on 06-06-2021 Calcium [Mass/Vol] 8.8 mg/dL 8.5-10.1 [facility] Work Phone: Serum or plasma creatinine m easurement (mass/volume)on 06-06-2021 Creatinine [Mass/Vol] 2.04 mg/dL 0.70-1.30 [facility] Work Phone: Comment on above: The validity of the calculated GFR & GFRAA in patients over 70 years has not been determined. Clinical correlation is essential. Serum or plasma urea nitroge n measurement (mass/volume)on 06-06-2021 Urea nitrogen [Mass/Vol] 18 mg/dL 7-18 [facility] Work Phone: Urine creatinine measurement (mass/volume)on 06-06-2021 Creatinine (U) [Mass/Vol] 101.00 mg/dL NO RANGE EST. [facility] Work Phone: Urine protein measurement (m ass/volume)on 06-06-2021 Protein (U) [Mass/Vol] 95.5 mg/dL 0.0-11.8 [facility] Work Phone: Urine protein/creatinine mas s ratioon 06-06-2021 Protein/Creatinine (U) [Mass ratio] 946 mg/g CRE 0-200 [facility] Work Phone: COVID-19, MOLECULARon 2020 SARS-COV-2 (ZIMMERMAN ID) Not Detected Normal Not Detecte d [facility] Comment on above: Result Comment: This test was performed under the FDA's Emergency Use Authorization (EUA). Testing was performed using the Zimmerman ID NOW COVID-19 assay on the ID NOW platform. This test has not been approved for use in asymptomatic patients and its performance in this patient population has not been evaluated. Negative results do not rule out the presence of SARS-CoV-2/COVID-19. Fact sheets for the EUA can be found at the following links: For Healthcare Providers: https://www.fda.gov/media/942695/download For Patients: https://www.fda.gov/media/855889/download COVID-19, Molecularon 2020 Interpretation and review of laboratory results Normal [facility] SARS-CoV-2 Not Detected Not Detected [facility] Comment on above: This test was perfor med under the FDA's Emergency Use Authorization (EUA). Testing was performed using the Zimmerman ID NOW COVID-19 assay on the ID NOW platform. This test has not been approved for use in asymptomatic patients and its performance in this patient population has not been evaluated. Negative results do not rule out the presence of SARS-CoV-2/COVID-19. Fact sheets for the EUA can be found at the following links: For Healthcare Providers: https://www.[employer].gov/media/066331/download For Patients: https://www.[employer].gov/[employer]/999826/download CT ABDOMEN PELVIS WITHOUT CO NTRASTon 06-03-2020 CT ABDOMEN PELVIS WITHOUT CONTRAST EXAMINATION: CT ABDOMEN PELVIS WITHOUT CONTRAST HISTORY: ORDERING SYSTEM PROVIDED HISTORY: mid abdominal pain and renal insufficiency, TECHNOLOGIST PROVIDED HISTORY: Illness/Other Reason for exam: mid abdominal pain and renal insufficiency Encounter Type: Initial Additional signs and symptoms: sob ORDERING SYSTEM PROVIDED DIAGNOSIS CODES: COMPARISON: CT of the abdomen pelvis from 07/20/2014 TECHNIQUE: CT examination of the abdomen and pelvis without IV contrast. Coronal and sagittal reformations were performed. Dose reduction techniques were achieved by using automated exposure control and/or adjustment of mA and/or kV according to patient size and/or use of iterative reconstruction technique. FINDINGS: Lung bases: A calcified granuloma within the left lower lobe. Liver: Normal. Gallbladder/Biliary: Cholelithiasis. No gallbladder wall thickening. No pericholecystic fluid. The gallstones measure up to 2.3 cm.. No intrahepatic or extrahepatic biliary ductal dilation. Pancreas: Normal. Spleen: Normal. Adrenal glands: Normal. Kidneys/Ureters: No renal lithiasis, hydronephrosis or distal ureteral calculi. Bladder: Normal. Gastrointestinal: Thickening of a loop of small bowel within the mid abdomen with wall thickening of 0.7 cm. The loops of small bowel within the left upper quadrant extending from this thickened region are dilated to 3.8 cm with associated edema within the adjacent small bowel mesentery. This smoothly tapers to normal caliber without transition point identified. The appendix is normal. Vascular: The aorta is normal in caliber. Lymph nodes: No lymphadenopathy. Osseous: No fracture. No aggressive osseous lesion. IMPRESSION: 1. Thickening of the small bowel loops within the left upper quadrant with associated dilation to 3.8 cm and edema in the adjacent mesentery. Consider infectious enteritis and inflammatory bowel disease. A partial/early small bowel obstruction is considered less likely given that no transition point is present. 2. Cholelithiasis. Workstation ID: [id number] Dictated by: RUDDY LAMAR on SatJun 03, 2020 1:06:20 PM EST Transcribed by: RUDDY LAMAR on SatJun 03, 2020 1:06:20 PM EST Finalized by: RUDDY LAMAR on SatJun 03, 2020 1:06:20 PM EST [facility] Comment on above: Order Comment: Injur y/Trauma or Illness?:Illness/Other How long have you had these symptoms (acute/chronic)?:Acute Reason for exam?:mid abdominal pain and renal insufficiency Type of Exam?:Initial Additional signs and symptoms?:sob CT Abdomen Pelvis Without Co ntraston 06-03-2020 Interface, Rad In [employer] - 06/03/2020 1:09 PM EST EXAMINATION: CT ABDOMEN PELVIS WITHOUT CONTRAST HISTORY: ORDERING SYSTEM PROVIDED HISTORY: mid abdominal pain and renal insufficiency, TECHNOLOGIST PROVIDED HISTORY: Illness/Other Reason for exam: mid abdominal pain and renal insufficiency Encounter Type: Initial Additional signs and symptoms: sob ORDERING SYSTEM PROVIDED DIAGNOSIS CODES: COMPARISON: CT of the abdomen pelvis from 07/20/2014 TECHNIQUE: CT examination of the abdomen and pelvis without IV contrast. Coronal and sagittal reformations were performed. Dose reduction techniques were achieved by using automated exposure control and/or adjustment of mA and/or kV according to patient size and/or use of iterative reconstruction technique. FINDINGS: Lung bases: A calcified granuloma within the left lower lobe. Liver: Normal. Gallbladder/Biliary: Cholelithiasis. No gallbladder wall thickening. No pericholecystic fluid. The gallstones measure up to 2.3 cm.. No intrahepatic or extrahepatic biliary ductal dilation. Pancreas: Normal. Spleen: Normal. Adrenal glands: Normal. Kidneys/Ureters: No renal lithiasis, hydronephrosis or distal ureteral calculi. Bladder: Normal. Gastrointestinal: Thickening of a loop of small bowel within the mid abdomen with wall thickening of 0.7 cm. The loops of small bowel within the left upper quadrant extending from this thickened region are dilated to 3.8 cm with associated edema within the adjacent small bowel mesentery. This smoothly tapers to normal caliber without transition point identified. The appendix is normal. Vascular: The aorta is normal in caliber. Lymph nodes: No lymphadenopathy. Osseous: No fracture. No aggressive osseous lesion. IMPRESSION: 1. Thickening of the small bowel loops within the left upper quadrant with associated dilation to 3.8 cm and edema in the adjacent mesentery. Consider infectious enteritis and inflammatory bowel disease. A partial/early small bowel obstruction is considered less likely given that no transition point is present. 2. Cholelithiasis. Workstation ID: [id number] [facility] EXAMINATION: CT ABDOMEN PELVIS WITHOUT CONTRAST HISTORY: ORDERING SYSTEM PROVIDED HISTORY: mid abdominal pain and renal insufficiency, TECHNOLOGIST PROVIDED HISTORY: Illness/Other Reason for exam: mid abdominal pain and renal insufficiency Encounter Type: Initial Additional signs and symptoms: sob ORDERING SYSTEM PROVIDED DIAGNOSIS CODES: COMPARISON: CT of the abdomen pelvis from 07/20/2014 TECHNIQUE: CT examination of the abdomen and pelvis without IV contrast. Coronal and sagittal reformations were performed. Dose reduction techniques were achieved by using automated exposure control and/or adjustment of mA and/or kV according to patient size and/or use of iterative reconstruction technique. FINDINGS: Lung bases: A calcified granuloma within the left lower lobe. Liver: Normal. Gallbladder/Biliary: Cholelithiasis. No gallbladder wall thickening. No pericholecystic fluid. The gallstones measure up to 2.3 cm.. No intrahepatic or extrahepatic biliary ductal dilation. Pancreas: Normal. Spleen: Normal. Adrenal glands: Normal. Kidneys/Ureters: No renal lithiasis, hydronephrosis or distal ureteral calculi. Bladder: Normal. Gastrointestinal: Thickening of a loop of small bowel within the mid abdomen with wall thickening of 0.7 cm. The loops of small bowel within the left upper quadrant extending from this thickened region are dilated to 3.8 cm with associated edema within the adjacent small bowel mesentery. This smoothly tapers to normal caliber without transition point identified. The appendix is normal. Vascular: The aorta is normal in caliber. Lymph nodes: No lymphadenopathy. Osseous: No fracture. No aggressive osseous lesion. [facility] 1. Thickening of the small bowel loops within the left upper quadrant with associated dilation to 3.8 cm and edema in the adjacent mesentery. Consider infectious enteritis and inflammatory bowel disease. A partial/early small bowel obstruction is considered less likely given that no transition point is present. 2. Cholelithiasis. Workstation ID: [id number] [facility] ECG 12-LEADon 06-03-2020 Atrial Rate 86 BPM [facility] P Erie 54 degrees [facility] P-R Interval 190 ms [facility] Q-T Interval 394 ms [facility] QRS Duration 108 ms [facility] QTC Calculation (Bezet) 471 ms [facility] R [place] 50 degrees [facility] T [place] -125 degrees [facility] Ventricular Rate 86 BPM [facility] th Andrzej Chavira 06/03/2020 5:46 PM EKG 12-lead Date/Time: 06/03/2020 11:58 AM Performed by: Roe Escamilla MD Authorized by: Roe Escamilla MD Interpreted by ED attending physician Rhythm: sinus rhythm BPM: 85 Conduction: conduction normal T Inversion: V5 and V6 T Flattening: III and aVF Other: no other findings Clinical impression: abnormal ECG Comments: T wave inversion in leads V5 V6 also lead III and aVF. Slight strain pattern ST elevation V1 through V3 [facility] Andrzej Chavira 06/03/2020 5:46 PM ECG 12 Lead Date/Time: 06/03/2020 2:56 PM Performed by: Roe Escamilla MD Authorized by: Roe Escamilla MD Interpreted by ED attending physician Rhythm: sinus rhythm BPM: 86 Conduction: conduction normal T Inversion: V5, V6, II, III and aVF normal IA interval Clinical impression: abnormal ECG [facility] Lipaseon 06-03-2020 Interpretation and review of laboratory results Normal [facility] Lipase [Catalytic activity/Vol] 90 U/L 73 - 393 U/L [facility] Otheron 06-03-2020 Interpretation and review of laboratory results Abnormal [facility] POC Basic Metabolic Panelon 06-03-2020 Calcium.ionized (Bld) [Mass/Vol] 4.7 mg/dL 4.5 - 5.3 mg/dL [facility] Chloride [Moles/Vol] 101 mmol/L 98 - 10 8 mmol/L [facility] CO2 [Moles/Vol] 29 mmol/L 21 - 32 mmol/L [facility] Creatinine [Mass/Vol] 2.34 mg/dL High 0.50 - 1.30 [facility] GFR/1.73 sq M.predicted MDRD (S/P/Bld) [Vol rate/Area] 34 mL/min/{1.73_m2} Low >=60 mL/min/1.73 m2 [facility] Glucose [Mass/Vol] 109 mg/dL High 65 - 99 mg/dL [facility] Interpretation and review of laboratory results Abnormal [facility] Potassium [Moles/Vol] 3.7 mmol/L 3.5 - 5.1 mmol/L [facility] Sodium [Moles/Vol] 139 mmol/L 135 - 145 mmol/L [facility] Urea nitrogen [Mass/Vol] 22 mg/dL 8 - 25 mg/d L [facility] POC CBC and Differentialon 0 06-03-2020 Basophils (Bld) [#/Vol] 0.05 10*3/uL [facility] Basophils/100 WBC (Bld) 0.4 % [facility] Eosinophils (Bld) [#/Vol] 0.60 10*3/uL High [facility] Eosinophils/100 WBC (Bld) 5.0 % [facility] Erythrocyte distribution width (RBC) [Entitic vol] 13.1 % 11.6 - 14.8 % [facility] Hematocrit (Bld) [Volume fraction] 44.7 % 41.0 - 53.0 % [facility] Hemoglobin (Bld) [Mass/Vol] 15.6 g/dL 13.5 - 17.5 g/dL [facility] Immature granulocytes (Bld) [#/Vol] 0.05 10*3/uL [facility] Immature granulocytes/100 WBC (Bld) 0.40 % [facility] Comment on above: The IG parameter is the percentage of metamyelocytes, myelocytes and promyelocytes. An immature granulocyte count (IG) of 1% or more suggests the possibility of infection, an IG count of 3% is very likely related to an infection. Interpretation and review of laboratory results Abnormal [facility] Lymphocytes (Bld) [#/Vol] 2.04 10*3/uL [facility] Lymphocytes/100 WBC (Bld) 17.0 % [facility] MCH (RBC) [Entitic mass] 29.0 pg 26. 0 - 34.0 pg [facility] MCHC (RBC) [Mass/Vol] 34.9 g/dL 31.0 - 37.0 g/dL [facility] MCV (RBC) [Entitic vol] 83.1 fL 80.0 - 100.0 fL [facility] Monocytes (Bld) [#/Vol] 1.37 10*3/uL High [facility] Monocytes/100 WBC (Bld) 11.4 % [facility] Neutrophils (Bld) [#/Vol] 7.92 10*3/uL High [facility] Neutrophils/100 WBC (Bld) 65.8 % [facility] Platelet mean volume (Bld) [Entitic vol] 10.9 fL 9.4 - 12.4 fL [facility] Platelets (Bld) [#/Vol] 250 10*3/uL [facility] RBC (Bld) [#/Vol] 5.38 10*6/uL [facility] WBC (Bld) [#/Vol] 12.03 10*3/uL [facility] POC Liver Panel Pluson 06-03 Albumin [Mass/Vol] 3.8 g/dL 3.2 - 5.2 g/dL [facility] ALP [Catalytic activity/Vol] 65 U/L 40 - 140 U/L [facility] ALT [Catalytic activity/Vol] 17 U/L 0 - 40 U/L [facility] Amylase [Catalytic activity/Vol] 34 U/L 25 - 115 U/L [facility] AST [Catalytic activity/Vol] 29 U/L 0 - 45 U/L [facility] Bilirubin [Mass/Vol] 0.6 mg/dL 0.0 - 1 .3 mg/dL [facility] Gamma glutamyl transferase [Catalytic activity/Vol] 21 U/L 11 - 51 U/L [facility] Interpretation and review of laboratory results Normal [facility] Protein [Mass/Vol] 7.0 g/dL 6.0 - 8.0 g/dL [facility] Albumin [Mass/Vol] 3.6 g/dL 3.2 - 5.2 g/dL [facility] ALP [Catalytic activity/Vol] 90 U/L 40 - 140 U/L [facility] ALT [Catalytic activity/Vol] 20 U/L 0 - 40 U/L [facility] Amylase [Catalytic activity/Vol] 58 U/L 25 - 115 U/L [facility] AST [Catalytic activity/Vol] 27 U/L 0 - 45 U/L [facility] Bilirubin [Mass/Vol] 0.8 mg/dL 0.0 - 1 .3 mg/dL [facility] Gamma glutamyl transferase [Catalytic activity/Vol] 15 U/L 11 - 51 U/L [facility] Interpretation and review of laboratory results Normal [facility] Protein [Mass/Vol] 6.9 g/dL 6.0 - 8.0 g/dL [facility] POC Troponin Ion 06-03-2020 Interpretation and review of laboratory results Normal [facility] Troponin I.cardiac [Mass/Vol] ng/mL <0.05 ng/mL [facility] POC Urinalysis Dipstick, Aut oon 06-03-2020 Bilirubin Ql (U) Negative Negative [facility] Glucose Ql (U) Negative Negative mg/dL [facility] Hemoglobin Ql (U) Trace-lysed Abnormal Negative [facility] Interpretation and review of laboratory results Abnormal [facility] Ketones Ql (U) Negative Negative mg/dL [facility] Leukocyte esterase Test strip Ql (U) Negative Negative [facility] Nitrite Ql (U) Negative Negative [facility] pH (U) 7.0 [pH] [facility] Protein Ql (U) >=300 Abnormal Negative mg/dL [facility] Specific gravity (U) [Rel density] >=1.030 High [facility] Urobilinogen Qn (U) 0.2 mg/dL <2.0 [facility] XR ABDOMEN /KUB/FLAT PLATE/1 VIEWon 06-03-2020 XR ABDOMEN /KUB/FLAT PLATE/1 VIEW EXAMINATION: XR ABDOMEN /KUB/FLAT PLATE/1 VIEW 06/03/2020 4:15 pm HISTORY: ORDERING SYSTEM PROVIDED HISTORY: check NG placement, TECHNOLOGIST PROVIDED HISTORY: Illness/Other Reason for exam: ng placement Cancer History: n Surgery, RadiationHistory: n Encounter Type: Initial Additional signs and symptoms: none ORDERING SYSTEM PROVIDED DIAGNOSIS CODES: N17.9 Acute kidney injury (HCC) K80.20 Gallstones K56.600 Partial small bowel obstruction (HCC) R10.13 Epigastric pain R94.31 Abnormal EKG I16.0 Hypertensive urgency FINDINGS: NG tube with its tip in the mid stomach. Gaseous distention of the stomach noted. Large amount of colonic stool seen. IMPRESSION: NG tube with its tip in the mid stomach. PD/sjk Workstation ID: [id number] Dictated by: ALDAIR PARHAM on SatJun 03, 2020 4:48:58 PM EST Transcribed by: MERLIN COOMBS on SatJun 03, 2020 4:52:38 PM EST Finalized by: ALDAIR PARHAM on SatJun 03, 2020 11:34:53 PM EST [facility] Comment on above: Order Comment: Injur y/Trauma or Illness?:Illness/Other How long have you had these symptoms (acute/chronic)?:Acute Reason for exam?:ng placement History of cancer?:n Surgeries, chemotherapy, or radiation?:n Type of Exam?:Initial Additional signs and symptoms?:none XR CHEST PA/APon 06-03-2020 XR CHEST PA/AP EXAMINATION: XR CHEST PA/AP 06/03/2020 11:55 am HISTORY: ORDERING SYSTEM PROVIDED HISTORY: SOB, TECHNOLOGIST PROVIDED HISTORY: Illness/Other Reason for exam: SOB Cancer History: n Surgery, RadiationHistory: n Encounter Type: Initial Additional signs and symptoms: ab pain ORDERING SYSTEM PROVIDED DIAGNOSIS CODES: COMPARISON: Radiograph on 07/19/2014. FINDINGS: The cardiomediastinal contour is within normal limits. The apparent enlargement of the heart is likely related to portable technique. The lungs are clear without any focal consolidative opacities. There is no pleural effusion. No gross abnormalities of the visualized osseous structure. No visible pneumothorax. IMPRESSION: No acute cardiopulmonary findings within the limitation of the study. [employer] Workstation ID: [id number] Dictated by: LUCIE DAMON on SatJun 03, 2020 12:15:35 PM EST Transcribed by: CAITIE GURROLA on SatJun 03, 2020 12:18:23 PM EST Finalized by: LUCIE DAMON on SatJun 03, 2020 1:16:54 PM EST [facility] Comment on above: Order Comment: Injur y/Trauma or Illness?:Illness/Other How long have you had these symptoms (acute/chronic)?:Acute Reason for exam?:SOB History of cancer?:n Surgeries, chemotherapy, or radiation?:n Type of Exam?:Initial Additional signs and symptoms?:ab pain XR Chest 1 Viewon 06-03-2020 EXAMINATION: XR CHES T PA/AP 06/03/2020 11:55 am HISTORY: ORDERING SYSTEM PROVIDED HISTORY: SOB, TECHNOLOGIST PROVIDED HISTORY: Illness/Other Reason for exam: SOB Cancer History: n Surgery, RadiationHistory: n Encounter Type: Initial Additional signs and symptoms: ab pain ORDERING SYSTEM PROVIDED DIAGNOSIS CODES: COMPARISON: Radiograph on 07/19/2014. FINDINGS: The cardiomediastinal contour is within normal limits. The apparent enlargement of the heart is likely related to portable technique. The lungs are clear without any focal consolidative opacities. There is no pleural effusion. No gross abnormalities of the visualized osseous structure. No visible pneumothorax. [facility] Interface, Rad In Fuji Speechq - 06/03/2020 1:19 PM EST EXAMINATION: XR CHEST PA/AP 06/03/2020 11:55 am HISTORY: ORDERING SYSTEM PROVIDED HISTORY: SOB, TECHNOLOGIST PROVIDED HISTORY: Illness/Other Reason for exam: SOB Cancer History: n Surgery, RadiationHistory: n Encounter Type: Initial Additional signs and symptoms: ab pain ORDERING SYSTEM PROVIDED DIAGNOSIS CODES: COMPARISON: Radiograph on 07/19/2014. FINDINGS: The cardiomediastinal contour is within normal limits. The apparent enlargement of the heart is likely related to portable technique. The lungs are clear without any focal consolidative opacities. There is no pleural effusion. No gross abnormalities of the visualized osseous structure. No visible pneumothorax. IMPRESSION: No acute cardiopulmonary findings within the limitation of the study. [employer] Workstation ID: [id number] [facility] No acute cardiopulmonary findings within the limitation of the study. [employer] Workstation ID: [id number] [facility] Influenza A&B Agon 8 Influenzae A Ag Negative Normal Positive [facility] Comment on above: Result Comment: A ne gative test result does not exclude infection with influenza A and B. Therefore, the results obtained should be used in conjunction with clinical findings to make an accurate diagnosis. Performed By: #### [id number] ####[facility], Influenzae B Ag Negative Normal Negative [facility] Comment on above: Performed By: #### [id number] ####[facility], Vital Signs Date Time Vital Sign Value Performing Clinician Facility 08-04-2024 12:15-0400 Diastolic blood pressure 96 mm[Hg] Dr. Tamir Ross MD Work Phone: [facility] 08-04-2024 12:15-0400 Heart rate 64 /min Dr. Tamir Ross MD Work Phone: [facility] 08-04-2024 12:15-0400 Respiratory rate 17 /min Dr. Tamir Ross MD Work Phone: [facility] 08-04-2024 12:15-0400 SaO2% (BldA) [Mass fraction] 95 % Dr. Tamri Ross MD Work Phone: [facility] 08-04-2024 12:15-0400 Systolic blood pressure 124 mm[Hg] Dr. Tamir Ross MD Work Phone: [facility] 08-04-2024 09:16-0400 Body height 187.[address] Tamir Ross MD Work Phone: [facility] 08-04-2024 09:16-0400 Body mass index (BMI) [Ratio] 34.7 kg/m2 Dr. Tamir Ross MD Work Phone: [facility] 08-04-2024 09:16-0400 Body temperature 98.2 [degF] Dr. Tamir Ross MD Work Phone: [facility] 08-04-2024 09:16-0400 Body weight 122.[address] Tamir Ross MD Work Phone: [facility] 06-03-2020 18:00-0500 Body Temperature 98.71 [degF] [facility] 06-03-2020 18:00-0500 BP Diastolic 115 mm[Hg] [facility] 06-03-2020 18:00-0500 BP Systolic 185 mm[Hg] [facility] 06-03-2020 18:00-0500 Pulse (Heart Rate) 88 /min [facility] 06-03-2020 18:00-0500 Pulse Oximetry 94 % [facility] 06-03-2020 18:00-0500 Respiratory Rate 16 /min [facility] 06-03-2020 11:34-0500 BMI (Body Mass Index) 30 kg/m2 [facility] 06-03-2020 11:34-0500 Body weight 108.86 kg [facility] 06-03-2020 11:34-0500 Height 190.5 cm [facility] Encounters Encounter Date Encounter Type Care Provider Facility Start: 09-11-2024 End: 09-11-[address] Tamir Ross MD Work Phone: [facility] Work Phone: Start: 09-11-2024 End: 09-11-[address] Marge Feldman DO -Laboratory Work Phone: Start: 09-11-2024 End: 09-11-2024 ambulatory Marge Lee Facility:[facility] Start: 08-04-2024 End: 08-04-[address] Marge Feldman DO -Cat Scan [facility] Work Phone: Start: 08-04-2024 End: 08-04-2024 ambulatory Tamir Ross Facility:[facility] Start: 06-30-2024 End: 06-30-[address] Tamir Ross MD Work Phone: [facility] Work Phone: Start: 06-30-2024 End: 06-30-[address] Marge Feldman DO -Laboratory Work Phone: Start: 06-30-2024 End: 06-30-2024 ambulatory [facility] Start: 06-26-2024 End: 06-26-[address] Tamir Ross MD Work Phone: [facility] Work Phone: Start: 06-26-2024 End: 06-26-[address] Tamir Ross MD -Radiology, [facility] Work Phone: Start: 06-26-2024 End: 06-26-2024 ambulatory Tamir Ross Facility:[facility] Start: 06-03-2024 End: 06-03-[address] Marge Feldman DO -Laboratory Work Phone: Start: 06-03-2024 End: 06-03-2024 ambulatory Marge Lee Facility:[facility] Start: 04-16-2024 End: 04-16-[address] Tamir Ross MD -Laboratory, [facility] Start: 04-16-2024 End: 04-16-2024 ambulatory Tamir Ross Facility:[facility] Start: 01-06-2024 End: 01-06-2024 ambulatory Marge Lee Facility:[facility] Start: 12-09-2023 End: 12-09-2023 ambulatory JONO COURTNEY-JEAN Facility:[facility] Start: 12-09-2023 End: 12-09-2023 Patient encounter procedure Jono Cortez MD Work Phone: [facility] Comment on above: Papilledema (Primary Dx); Hypertension, unspecified type; Hypertensive retinopathy, bilateral; Refractive error Start: 12-09-2023 End: 12-09-2023 Telephone encounter Jono Cortez MD Work Phone: [facility] Comment on above: Request Outside [facility] Records Start: 11-29-2023 End: 11-29-2023 ambulatory Marge Herbert Facility:[facility] Start: 11-08-2023 End: 11-09-2023 Emergency department patient visit Christian Burch Facility:[facility] Start: 11-08-2023 End: 11-08-2023 ambulatory JONO COURTNEY-JEAN Facility:[facility] Start: 11-08-2023 End: 11-08-2023 Patient encounter procedure Jono Cortez MD Work Phone: [facility] Comment on above: Subjective visual di sturbance (Primary Dx); Papilledema; Refractive error; Hypertension, unspecified type; Hypertensive retinopathy, bilateral Start: 11-04-2023 Telephone encounter Efra ya MD Work Phone: Ophthalmology Comment on above: Appointment Start: 04-20-2023 End: 04-20-2023 ambulatory [facility] Work Phone: Start: 04-20-2023 End: 04-20-2023 Patient encounter procedure [facility]-Cat Scan, [facility] Work Phone: Start: 04-04-2023 End: 04-04-2023 ambulatory [facility] Work Phone: Start: 04-04-2023 End: 04-04-2023 Patient encounter procedure [facility]-Laboratory, Vira Bedolla Start: 01-04-2023 End: 01-04-2023 ambulatory [facility] Work Phone: Start: 01-04-2023 End: 01-04-2023 Patient encounter procedure [facility]-Laboratory Work Phone: Start: 10-24-2022 End: 10-24-2022 ambulatory [facility] Work Phone: Start: 10-24-2022 End: 10-24-2022 Patient encounter procedure [facility]-Laboratory Work Phone: Start: 06-16-2022 End: 06-16-2022 ambulatory [facility] Work Phone: Start: 06-16-2022 End: 06-16-2022 Patient encounter procedure [facility]-Ultrasound, [facility] Start: 02-07-2022 End: 02-07-2022 ambulatory [facility] Work Phone: Start: 02-07-2022 End: 02-07-2022 Patient encounter procedure [facility]-Laboratory Start: 07-18-2021 End: 07-18-2021 Patient encounter procedure [facility]-Laboratory Start: 06-06-2021 End: 06-06-2021 Patient encounter procedure [facility]-Laboratory Start: 06-03-2020 End: 06-03-2020 Emergency department patient visit PHYSICIAN [facility] Start: 06-03-2020 End: 06-03-2020 Emergency department patient visit Roe Garcia Andi Work Phone: [facility] Emergency Department Comment on above: Acute kidney injury (HCC) (Primary Dx); Gallstones; Partial small bowel obstruction (HCC); Epigastric pain; Abnormal EKG; Hypertensive urgency Start: 05-02-2017 End: 05-02-2017 Emergency department patient visit Dereje Mai Facility:[facility] Procedures Date Procedure Procedure Detail Performing Clinician Start: 09-11-2024 Serum inorganic phos phate measurement Dr. Tamir Ross MD Work Phone: Start: 08-04-2024 Biopsy/Inj or Needle Placement Dr. Tamir Ross MD Work Phone: Start: 06-30-[address] Indigo Ross MD Work Phone: Comment on above: Performed at: [address] [id number] Director: Baljinder Newton PhD, Phone: [phone] Start: 06-30-2024 Serum inorganic phos phate measurement Dr. Tamir Ross MD Work Phone: Start: 06-26-[address] Tamir farfan MD Work Phone: Start: 06-03-2024 Assay of phosphorus inorganic Dr. Tamir Ross MD Work Phone: Start: 06-03-2024 Measurement of renal function Dr. Tamir Ross MD Work Phone: Comment on above: GFR Calc Start: 11-08-2023 End: 11-08-2023 Fundus photography w/interpretation & report Jono Cortez MD Work Phone: Start: 04-20-2023 CT of head without contrast Start: 06-16-2022 US urinary tract Start: 06-03-2020 Radiography of [id number] Roe Escamilla Work Phone: Start: 06-03-2020 COVID-19, MOLECULAR Zeferino n Jose Escamilla Work Phone: Start: 06-03-2020 Lipase [Enzymatic activity/volume] in Serum or Plasma Roe Escamilla Work Phone: Start: 06-03-2020 Urnls dip stick/tabl et rgnt auto w/o microscopy Roe Escamilla Work Phone: Start: 06-03-2020 Ct abdomen & pelvis w/o contrast material Roe Escamilla Work Phone: Start: 06-03-2020 Assay of troponin quantitative Roe Escamilla Work Phone: Start: 06-03-2020 End: 06-03-2020 12 lead ECG Roe Escamilla Work Phone: Start: 06-03-2020 Radiologic exam ches t single view Roe Escamilla Work Phone: Start: 06-03-2020 Basic metabolic pane l calcium ionized Roe Escamilla Work Phone: Start: 06-03-2020 End: 06-03-2020 Albumin serum plasma/whole blood Roe Escamilla Work Phone: Start: 06-03-2020 Blood count complete auto&auto difrntl wbc Roe Escamilla Work Phone: Plan of Treatment Date Care Activity Detail Author Start: 06-10-2028 Urine microalbumin profile DTaP,Tdap,Td Vaccine (9 - Td or Tdap) [facility] Start: 08-04-2024 Renal biopsy prq trocar/needle RENAL BIOPSY PERQ [facility] Start: 08-04-2024 Following clinical pathway protocol [facility] Start: 08-04-2024 Catheterization of vein [facility] Start: 08-04-2024 Oxygen therapy [facility] Start: 08-04-2024 Patient discharge [facility] Start: 08-04-2024 Vital signs measurements [facility] Start: 03-09-2024 End: 03-09-2024 Patient encounter procedure 03/09/2024 3:15 PM EST Office Visit OPHT [facility] [address] [facility] [place] [id number] Jono Cortez MD [address] [facility] [address] [place] [phone] Return in about 3 months (around 03/10/2024) for LC dilate, oct disc, oct mac, vf24. [facility] Comment on above: Return in about 3 mo nths (around 03/10/2024) for LC dilate, oct disc, oct mac, vf24. Start: 12-15-2023 Influenza vaccination Influenza Vacc ine (#1) [facility] Start: 12-09-2023 End: 08-26-2024 Patient encounter procedure 12/09/2023 3:15 PM EDT Office Visit OP[facility] [address] [place], [place] [id number] Jono Cortez MD [address] [facility] [address] [place] [id number] 1 month [facility] Comment on above: 1 month Start: 12-14-2022 Covid-19 Vaccine () Covid-19 Vaccine ( season) [facility] Start: 12-15-2019 Influenza vaccinatio n given Sequential Influenza Vaccine (#1) [facility] Start: 10-15-2018 Lipid panel Lipid Screening [facility] Start: 10-15-2002 Hepatitis B Vaccine (1 of 3 - 19+ 3-dose series) Hepatitis B Vaccine (1 of 3 - 19+ 3-dose series) [facility] Start: 10-15-2001 Anxiety Screening Anxiety Screening [facility] Start: 10-15-2001 Depression Screening Depression Scre [facility] Start: 10-15-2001 Hepatitis C antibody , confirmatory test Hepatitis C Screening [facility] Start: 10-15-2001 Hepatitis C screening Hepatitis C Sc [facility] Start: 10-15-2001 HIV screening HIV Screening [facility] Start: 1999 COVID-19 Vaccine (1 of 2) COVI D-19 Vaccine (1 of 2) [facility] Start: 10-15-1998 HIV screening HIV Screening [facility] Start: 1995 Adolescent depressio n screening assessment Depression Screening (PHQ9) [facility] Start: 10-15-1986 History and physical examination, annual for health maintenance Wellness Visit [facility] Start: 1983 Tetanus vaccination Tetanus: Every 1 0yrs [facility] Patient Education RAD RN Dischar ge Instructions for Kidney Biopsy RAD RN Procedural Sedation [facility] Work Phone: Patient referral [facility] Work Phone: Radiography of [id number] XR Abdomen AP Imaging STAT 06/03/2020 4:24 PM EST [facility] Immunizations Immunization Date Immunization Notes Care Provider Fa cility 01-25-2021 influenza virus vacc ine, unspecified formulation Jono Cortez MD Work Phone: [facility] Payers Date Payer Category Payer Unknown [id number] 2023 Self-pay [id number] 2023 Unknown MMO MMO [employer] PPO [id number] 2023-Present [phone] [address] [place] [address] PPO [id number] 2023 Unknown [id number] 2019 Unknown MMO [employer] PPO [id number] 2019-Present [id number] 2019 Unknown [id number] 2017 Private Health Insurance 1983 Unknown [id number] Private Health Insurance [id number] Unknown [id number] 62 Unknown [id number] 62 Unknown [id number] 62 Unknown [id number] 62 Unknown [id number] 62 Unknown [id number] 62 Unknown [id number] 62 Unknown [id number] 62 Unknown [id number] 62 Social History Date Type Detail Facility Start: 06-03-2020 End: 11-08-2023 Tobacco smoking status NHIS Never smoker [facility] Start: 06-03-2020 End: 12-09-2023 Tobacco use and exposure Never used [facility] Start: 06-03-2020 End: 12-09-2023 Alcohol intake Lifetime non-drinker (finding) [facility] Start: 06-03-2020 History SDOH Alcohol Frequency 1 [facility] Start: 1985 Sex Assigned At Not on file [facility] Exposure to SARS-CoV -2 (event) Not sure [facility] Start: 07-18-2020 End: 07-18-2020 Tobacco smoking status NHIS Unknown if ever smoked [facility] Start: 1985 Sex Assigned At Male [facility] Gender identity Not on file [facility] Start: 07-05-2024 End: 07-08-2024 Sex Male (finding) [facility] Start: 08-04-2024 Tobacco smoking stat us NHIS Ex-smoker (finding) [facility] Mental Status Date Assessment Result Facility 08-04-2024 Cognitive function Awake;Alert;Appropriat e [facility] Work Phone: Clinical Notes 11-04-2023 to 06-26-2024 Telephone Encounter - Chanell Vanegas - 12/09/2023 3:56 PM EDTTelephone Encounter - Chanell Vanegas - 12/09/2023 3:56 PM EDTDateresa-Jono Mccall MD - 12/09/2023 3:46 PM EDT Note Date & Type Note Facility 06-26-2024 Procedure note [facility] 12-09-2023 Telephone encounter Note Pt signed release to obtain records from [facility]. Form placed in MR MB [facility] 12-09-2023 Miscellaneous Notes Pt signed release to obtain records from [facility]. Form placed in MR MURPHY documented in this encounter [facility] 12-09-2023 Note HNO ID: [id number] Author: JONO CORTEZ MD Service: ? Author Type: Physician Type: Progress Notes Filed: 12/09/2023 15:48 Note Text: Unable to access [facility] records and no records received (H47.10) Papilledema (primary encounter diagnosis) (I10) Hypertension, unspecified type (H35.033) Hypertensive retinopathy, bilateral (H52.7) Refractive error Blurred disc margins Both eyes . Encouraged patient to be proactive and call pcp office for scheduling of MRI Htn retinopathy with macroaneurysm Right eye . Stable compared to photos Fu 3 month for lc dilate Both eyes Decreased vision, headache or loss of vision , go to ER I have confirmed and edited as necessary the relevant ophthalmic history, ROS, and the neuro exam findings as obtained by others. I have seen and examined Wilton Quiroz. I have discussed the case and the management of this patient's care with the Resident/Fellow, if applicable. I also have reviewed and agree with the assessment and plan as stated above and agree with all of its relevant components. Jono Mccall MD [facility] 12-09-2023 History of Presen t illness Narrative Unable to access [facility] records and no records received (H47.10) Papilledema (primary encounter diagnosis) (I10) Hypertension, unspecified type (H35.033) Hypertensive retinopathy, bilateral (H52.7) Refractive error Blurred disc margins Both eyes . Encouraged patient to be proactive and call pcp office for scheduling of MRI Htn retinopathy with macroaneurysm Right eye . Stable compared to photos Fu 3 month for lc dilate Both eyes Decreased vision, headache or loss of vision , go to ER I have confirmed and edited as necessary the relevant ophthalmic history, ROS, and the neuro exam findings as obtained by others. I have seen and examined Wilton Quiroz. I have discussed the case and the management of this patient's care with the Resident/Fellow, if applicable. I also have reviewed and agree with the assessment and plan as stated above and agree with all of its relevant components. Jono Mccall MD documented in this encounter [facility] 11-08-2023 Note Date of Procedure 11/08/2023. Library Media Technician Information Garage Mechanic: anne. Start time: 3:38 PM. Stop time: 3:43 PM. Quality Right Eye Good. Left Eye Good. Notes Edema Both eyes [facility] 11-08-2023 Note Date of Procedure 11/08/2023. Library Media Technician Information Garage Mechanic: anne. Start time: 3:47 PM. Stop time: 3:57 PM. Disc Right Eye Edema. Left Eye Edema. [facility] 11-08-2023 Note HNO ID: [id number] Author: JONO CORTEZ MD Service: ? Author Type: Physician Type: Progress Notes Filed: 11/08/2023 16:39 Note Text: Reviewed amanda note 11/02/23 Reviewed jose armando note 11/04/23 Reviewed andi note 06/03/20 (H53.10) Subjective visual disturbance (primary encounter diagnosis) (H47.10) Papilledema (H52.7) Refractive error (I10) Hypertension, unspecified type (H35.033) Hypertensive retinopathy, bilateral Blurred disc margins Both eyes . Rec to ER for work up of papilledema Manifest refraction given Htn retinopathy with macroaneurysm Right eye . Rec photos today Fu one month for lc dilate Both eyes I have confirmed and edited as necessary the relevant ophthalmic history, ROS, and the neuro exam findings as obtained by others. I have seen and examined Wilton Quiroz. I have discussed the case and the management of this patient's care with the Resident/Fellow, if applicable. I also have reviewed and agree with the assessment and plan as stated above and agree with all of its relevant components. Jono Mccall MD [facility] 11-08-2023 History of Presen t illness Narrative Reviewed amanda note 11/02/23 Reviewed jose armando note 11/04/23 Reviewed andi note 06/03/20 (H53.10) Subjective visual disturbance (primary encounter diagnosis) (H47.10) Papilledema (H52.7) Refractive error (I10) Hypertension, unspecified type (H35.033) Hypertensive retinopathy, bilateral Blurred disc margins Both eyes . Rec to ER for work up of papilledema Manifest refraction given Htn retinopathy with macroaneurysm Right eye . Rec photos today Fu one month for lc dilate Both eyes I have confirmed and edited as necessary the relevant ophthalmic history, ROS, and the neuro exam findings as obtained by others. I have seen and examined Wilton Quiroz. I have discussed the case and the management of this patient's care with the Resident/Fellow, if applicable. I also have reviewed and agree with the assessment and plan as stated above and agree with all of its relevant components. Jono Mccall MD documented in this encounter [facility] 11-04-[address] Taylor office calling [phone] referring patient for papilledema likely secondary to hypertension Asked them to fax over exam notes and then Dr. Pandey will review and advise. They asked we call the patient to schedule [facility] 11-04-[address] Taylor office calling [phone] referring patient for papilledema likely secondary to hypertension Asked them to fax over exam notes and then Dr. Pandey will review and advise. They asked we call the patient to schedule documented in this encounter [facility] Evaluation note No assessment inform ation available [facility] Work Phone: Evaluation note Diagnosis Subjective visual disturbance- Primary Subjective visual disturbance, unspecified Papilledema Papilloedema, unspecified Refractive error Unspecified disorder of refraction and accommodation Hypertension, unspecified type Hypertensive retinopathy, bilateral [facility] Papilledema- Primary Papilloedema, unspecified Hypertension, unspecified type Hypertensive retinopathy, bilateral Refractive error Unspecified disorder of refraction and accommodation [facility]ative)No reason for referral information availableWMartins Ferry [facility] Work Phone: Summary Purpose Family History Relationship Condition Age at Onset Recorded Date/T ken Unknown Family History?Diabe maria del carmen, Hypertension Unknown June 03, 2020 9:23pm Family History?Hypertension Unknown June 03, 2020 9:23pm Relationship Condition Age at Onset Recorded Date/T ken Unknown Family History?Diabe maria del carmen, Hypertension Unknown June 03, 2020 8:23pm Family History?Hypertension Unknown June 03, 2020 8:23pm Advance Directives Documents on File Type Date Recorded Patient Call Centre Supervisor Expl anation Advance Directives and Livin g Will 06/03/2020 12:16 PM Advance Directive Response Recorded Date/ Time Advance Directives Yes July 11 7:51am Living Will Yes July 11, 2020 7:51am Power of Mix Technician Yes July 11 7:51am Advance Directive Response Recorded Date/ Time Advance Directives Yes July 11 6:51am Living Will Yes July 11, 2020 6:51am Power of Mix Technician Yes July 11 6:51am Advance Directive Response Recorded Date/ Time Advance Directives Yes July 11 7:51am Discharge Instructions * Instructions* Arianna Moya, RN - 06/03/2020 Connecting with a Primary Care Provider or Family Doctor is important for your continued health. Please visit [email or web address] and search for a Primary Care provider near your address. Many offer online scheduling to help connect you to a provider. You may also call [phone], or , choose option 1 and speak to our labor representative to schedule with a provider. [facility] ([facility]) - the providers at this clinic will also be able to help you connect to a new Primary Care Provider. [address] [place] [address], [id number] Saturday through Saturday 9am to 7pm We notice that you may not have a Primary Care Provider. Here is a list of PCP that are in the [place]ra[place]. Please call and make an appointment. Rajan Lee MD [facility] [address] [place] [address] P: Chance Benton MD [facility] [address] [place] [address] Get Directions P: Rashad Mcmahon MD [facility] [address] [place] [address] P: documented in this encounter Assessments Diagnosis Acute kidney injury (HCC)- Primary Gallstones Calculus of gallbladder without mention of cholecystitis or obstruction Partial small bowel obstruction (HCC) Unspecified intestinal obstruction Epigastric pain Abdominal pain, epigastric Abnormal EKG Nonspecific abnormal electrocardiogram (ECG) (EKG) Hypertensive urgency Chief Complaint and Reason for Visit Chief Complaint DORSALGIA Chief Complaint 24 HR URINE Chief Complaint 24 HR URINE Altered mental status, unspecified Chief Complaint Admit Date SWALLOWING DIFFICULTY June 26, 2024 1 2:41pm Chief Complaint Admit Date SWALLOWING DIFFICULTY June 26, 2024 1 2:41pm RENAL; PROTEINURIA UNSPECIFIED July 8:23am Additional Source Comments (unrecognized sect ion and content) No Status Records FoundNo Status Records FoundNo Status Records FoundNo Status Records FoundNo Status Records Found INFORMATION SOURCE (unrecogn ized section and content) DATE CREATED AUTHOR 10/08/2017 [facility] DATE CREATED AUTHOR AUTHOR'S ORGANIZ ATION 06/08/2020 [facility] DATE CREATED AUTHOR AUTHOR'S ORGANIZ ATION 02/21/2024 [facility] DATE CREATED AUTHOR AUTHOR'S ORGANIZ ATION 08/07/2024 [facility] DATE CREATED AUTHOR AUTHOR'S ORGANIZ ATION 09/16/2024 [facility] Reason for Visit (unrecogniz ed section and content) Reason Comments Abdominal Pain Reason Comments Subjective Visual Disturbance Second Opinion Reason Comments Appointment Reason Comments Request Outside Medical Records Reason Comments Follow Up Roe Escamilla MD - 06/03/2020 11:47 AM Anabella Valdez CNP - 06/03/2020 11:32 AM EST ED Notes (unrecognized secti on and content) Associated Order(s): ECG 12 Lead; EKG 12-lead [place] [facility] Physician Note: NAME: Wilton Quiroz 34 y.o. CSN: [id number] PCP: Physician No ED Course / Medical [...] and hydration. Patient wanted to go to [facility]. I called them and they had their physician call me back. I talked with a doctor deng at 2 PM[address] She [address] the CT scan faxed to her. She will call me back when she reviews the CT scan herself. Dr. Deng called back at 3:12 PM and she [...] urgency Disposition: Patient is being transfered to [facility]. History: Chief Complaint: Abdominal Pain HPI: The [...] file Gets together: Not on file Attends congregation service: Not on file Active member of [...] Date/Time: 06/03/2020 11:58 AM Performed by: Roe Escamilla MD Authorized by: Roe Escamilla MD Interpreted by ED attending physician Rhythm: sinus rhythm BPM: 85 Conduction: conduction normal T Inversion: V5 and V6 T Flattening: III and aVF Other: no other findings Clinical impression: abnormal ECG Comments: T wave inversion in leads V5 V6 also lead III and aVF. Slight strain pattern ST elevation V1 through V3 ECG 12 Lead Date/Time: 06/03/2020 2:56 PM Performed by: Roe Escamilla MD Authorized by: Roe Escamilla MD Interpreted by ED attending physician Rhythm: sinus rhythm BPM: 86 Conduction: conduction normal T Inversion: V5, V6, II, III and aVF normal IA interval Clinical impression: abnormal ECG The patient [...] of possible pre-hypertension or hypertension. . Roe Escamilla MD ED Physician [facility] (Please note that portions of this note have been completed with a voice recognition software. Efforts were made to correct any errors, but occasionally words are mis-transcribed.) Roe Escamilla MD 06/03/20 1746 Pt c/o severe mid-epigastric pain that is constant and radiates around to his back. Pt relates the abd pain started yesterday but became worse this morning. He denies changes in bowel or bladder. Denies vomiting or fever but relates nausea with pain. Pt denies sob. documented in this encounter Goals (unrecognized section and content) Goals may be documented in a n alternate sectionGoals may be documented in an alternate sectionGoals may be documented in an alternate sectionGoals may be documented in an alternate sectionGoals may be documented in an alternate sectionGoals may be documented in an alternate sectionGoals may be documented in an alternate sectionGoals may be documented in an alternate sectionGoals may be documented in an alternate sectionGoals may be documented in an alternate section Care Teams (unrecognized sec tion and content) Team Status: Active Member Role Status Dates Dr. Tamir Ross MD Family Provider Active Dr. Tamir Ross MD Primary Care Provider Active Team Status: Inactive Member Role Status Dates Dr. Tamir Ross MD Primary Care Provider Active Dr. Marge Feldman DO Attending Provider Active Team Status: Inactive Member Role Status Dates Dr. Tamir Ross MD Primary Care Provider Active Dr. Marge Feldman DO Attending Provider, Referring P marimar Active Team Status: Inactive Member Role Status Dates Dr. Tamir Ross MD Primary Care Provider, Attending Provider Active Team Status: Inactive Member Role Status Dates Dr. Tamir Ross MD Primary Care Provi danielle, Attending Provider, Referring Provider Active Team Status: Active Member Role Status Dates Dr. Tamir Ross MD Primary Care Provider Active Team Status: Inactive Member Role Status Dates Dr. Tamir Ross MD Primary Care Provider Active Start: April 16, 2024 End: April 16, 2024 Dr. Tamir Ross MD Attending Provider Active Start: April 16, 2024 End: April 16, 2024 Team Status: Inactive Member Role Status Dates Dr. Tamir Ross MD Primary Care Provider Active Start: June 03, 2024 End: June 03, 2024 Dr. Marge Feldman DO Attending Provider Active Start: June 03, 2024 End: June 03, 2024 Dr. Marge Feldman DO Referring Provider Active Start: June 03, 2024 End: June 03, 2024 Team Status: Inactive Member Role Status Dates Dr. Tamir Ross MD Primary Care Provider Active Start: June 26, 2024 End: June 26, 2024 Dr. Tamir Ross MD Attending Provider Active Start: June 26, 2024 End: June 26, 2024 Dr. Tamir Ross MD Referring Provider Active Start: June 26, 2024 End: June 26, 2024 Team Status: Active Member Role Status Dates Dr. Tamir Ross MD Primary Care Provider Active Start: June 30, 2024 Dr. Marge Feldman DO Attending Provider Active Start: June 30, 2024 Dr. Marge Feldman DO Referring Provider Active Start: June 30, 2024 Team Status: Inactive Member Role Status Dates Dr. Tamir Ross MD Primary Care Provider Active Start: June 30, 2024 End: June 30, 2024 Dr. Marge Feldman DO Attending Provider Active Start: June 30, 2024 End: June 30, 2024 Dr. Marge Feldman DO Referring Provider Active Start: June 30, 2024 End: June 30, 2024 Team Status: Inactive Member Role Status Dates Dr. Tamir Ross MD Primary Care Provider Active Start: August 04, 2024 End: August 04, 2024 Dr. Marge Feldman DO Attending Provider Active Start: August 04, 2024 End: August 04, 2024 Dr. Marge Feldman DO Referring Provider Active Start: August 04, 2024 End: August 04, 2024 Team Status: Inactive Member Role Status Dates Dr. Tamir Ross MD Primary Care Provider Active Start: September 11, 2024 End: September 11, 2024 Dr. Marge Feldman DO Attending Provider Active Start: September 11, 2024 End: September 11, 2024 Dr. Marge Feldman DO Referring Provider Active Start: September 11, 2024 End: September 11, 2024 Source Comments (unrecognize d section and content) In the event this informatio n is protected by the Federal Confidentiality of Alcohol and Drug Abuse Patient Records regulations: The Federal rules restrict any use of the information to criminally investigate or prosecute any alcohol or drug abuse patient.[facility] the event this information is protected by the Federal Confidentiality of Alcohol and Drug Abuse Patient Records regulations: The Federal rules restrict any use of the information to criminally investigate or prosecute any alcohol or drug abuse patient.[facility] the event this information is protected by the Federal Confidentiality of Alcohol and Drug Abuse Patient Records regulations: The Federal rules restrict any use of the information to criminally investigate or prosecute any alcohol or drug abuse patient.[facility] the event this information is protected by the Federal Confidentiality of Alcohol and Drug Abuse Patient Records regulations: The Federal rules restrict any use of the information to criminally investigate or prosecute any alcohol or drug abuse patient.[facility] FOR RECORDS PERTAINING TO PATIENTS WHO ARE [...] BE BASED ON THE PRIMARY CLINICAL RECORDS. [facility] [employer] [facility]. provides no warranty or guarantee of the accuracy or completeness of information in this document.
[2025-03-24 09:37] LABS: AST(SGOT) 22 U/L (<=37); Alanine Aminotransfer ALT/SGPT 21 U/L (<=46); Albumin, Serum 3.9 g/dL (3.5-5.0); Alkaline Phosphatase 101 U/L (40-129); Anion Gap 11 (5-15); BUN 23 mg/dL (4-19); BUN/Creat Ratio 8.0 RATIO (10-20); Calcium,Total 9.2 mg/dL (7.6-11.0); Carbon Dioxide 25.2 mmol/L (21.0-32.0); Chloride 104 mmol/L (98-108); Cholesterol 233 mg/dL (<=200); Globulin 2.8 g/dL (2.2-4.2); Glucose 110 mg/dL (70-99); Low Density Lipoprotein Calc. 159 mg/dL; Potassium 4.3 mmol/L (3.3-5.1); Triglycerides 196 mg/dL; Very Low Density Lipoprotein 39 mg/dL (5-40); cholesterol:hdl ratio screen 6.15
[2025-03-24 09:40] LABS: Creatinine, Urine (random) 40.10 mg/dL (39.00-259.00); Protein, Urine (Random) 44.8 mg/dL (0.0-12.0); Protein:Creat Ratio 1117 mg/g CRE (0-200)
== END | disposition home or self-care (01) ==
LOC: LAB 08:20
PROVIDERS: PCP Family Medicine; Visit Provider Internal Medicine Nephrology
DX: N18.31 Chronic kidney disease, stage 3a (principal); R80.9 Proteinuria, unspecified
CPT/HCPCS: 80053; 80061; 82570; 84100; 84156